=== PATIENT | female | born 1940 | race Caucasian/White ===

== ENCOUNTER 2020-03-08 14:41 | Inpatient (IN) ==
--- OUTSIDE RECORDS SUMMARY | 2020-03-08 14:45 | External Medical Summary | Continuity of Care Document ---
:1940 Author Name Jayden MYanely Address Unavailable Unavailable , Care Team Providers Name Role Phone Unavailable Unavailable Unavailable Jeanette BARRAGAN Unavailable Unavailable Problems Pelvic fracture (808.8) (S32.9XXA) Allergies and Adverse Reactions Allergy history not documented Medications Senna-Docusate Sodium 8.6-50 MG Oral Tablet; TAKE 1 TA BLET DAILY NEEDED. , M.DMonique Start: 28-May-2014 Refills: 0 Polyethylene Glycol 3350 17 GM/SCOOP Oral Powder , M.D. Start: 28-May-2014 Refills: 0 Percocet 5-325 MG Oral Tablet; TAKE 1 TABLET Every 4 hours P RN for pain , Kathrine Start: 28-May-2014 Refills: 0 Docusate Sodium 100 MG Oral Tablet , M.D. Start : 28-May-2014 Refills: 0 Aspirin 325 MG Oral Tablet , M.D. Start: 2014 Refills: 0 Procedures History of Tubal Ligation Status: Comple hua History of Cholecystectomy Status: Compl eted Immunizations Immunizations not documented Plan of Treatment Planned Observations Planned Goals not documented Results No Known Results Results not documented
--- NOTE | 2020-03-08 15:19 | Emergency Department Note ---
History of Present Illness General Chief complaint: Fall Time Seen by Provider: 03/08/20 15:01 Source: patient Mode of arrival: EMS Limitations: no limitations History of Present Illness Maximum Pain Intensity: 5 This patient is an 79-year-old female who presents to emergency department for evaluation of a right hip injury. Patient reports that she was walking in her house without her cane and lost her balance and fell. She landed onto her right hip. She denies striking her head and denies any other injuries. She states that she was not lightheaded or dizzy prior to the fall. Patient was able to slide herself over to the phone to call for help. Patient has a history of hypertension, denies other medical problems and does not take anticoagulants. She has had a previous left hip fracture which was repaired by Dr. Brady with [facility]. Denies any numbness or weakness. She has not been able to walk on the hip since the injury. Patient rates her pain a 5/10 and states pain is manageable as long as she does not move. She was given fentanyl en route with improvement of her pain. Home Medications Home Medications Medication Instructions Recorded Confirmed Type cholecalciferol (vitamin D3) 1,000 unit PO QAM 01/21/18 03/08/20 History [Vitamin D3] Turmeric/Curcumin 1 cap PO QAM 03/08/20 03/08/20 History amlodipine 10 mg PO QAM 03/08/20 03/08/20 History docusate sodium [Colace] 100 mg PO BID PRN 03/08/20 03/08/20 History omeprazole 20 mg PO DAILY PRN 03/08/20 03/08/20 History Allergies Allergy/AdvReac Type Severity Reaction Status Date / Time No Known Allergies Allergy Verified 03/08/20 19:10 Past Med/Surg History Medical History Hypertension Mild aortic valve regurgitation Mild mitral regurgitation Moderate tricuspid regurgitation Surgical History History of total left hip replacement S/P cholecystectomy S/P tubal ligation Family History Mother Cancer Social History Smoking Status: Never smoker Hx Alcohol Use: No Hx Substance Use: No Preferred Language: Swedish Communication Ability: Effective Sales Designer Required: No Beliefs That Will Affect Care: None marital status: Unknown Current Living Situation: Family Current Living Situation Comment: with daughter/familoy check ups Other Information That Helps Us Care for You: No Feels Safe at Home: Yes Safety Concerns: Feels Safe At This Time Assistive Devices: Walker Review of Systems A total of 10 systems reviewed and were otherwise negative Physical Exam Vital Signs Vital Signs - 24 hr 03/08/20 14:45 03/08/20 14:50 03/08/20 14:55 Temperature 36.6 C Temperature Source Oral Pulse Rate 84 80 71 Pulse Rate from SpO2 Sensor 81 75 Pulse Rhythm Regular Pulse Strength Normal Respiratory Rate 14 18 19 Respiratory Effort / Characteristics Non-Labored Spontaneous Respiratory Depth Normal Respiratory Pattern Regular Blood Pressure 138/76 138/76 Blood Pressure Mean 96 99 Blood Pressure Position Lying Pulse Oximetry 96 100 100 Oxygen Delivery Method Room Air Sepsis Recent Fever Within 48 Hours No Sepsis New/Unexplained Change in Mental Status N/A Sepsis Action Taken by Nursing No Action Required 03/08/20 15:00 03/08/20 15:30 03/08/20 16:00 Temperature Temperature Source Pulse Rate 76 80 75 Pulse Rate from SpO2 Sensor 75 81 76 Pulse Rhythm Pulse Strength Respiratory Rate 17 16 16 Respiratory Effort / Characteristics Respiratory Depth Respiratory Pattern Blood Pressure 132/90 129/66 133/73 Blood Pressure Mean 109 96 84 Blood Pressure Position Pulse Oximetry 98 99 100 Oxygen Delivery Method Sepsis Recent Fever Within 48 Hours Sepsis New/Unexplained Change in Mental Status Sepsis Action Taken by Nursing 03/08/20 16:30 03/08/20 17:00 03/08/20 17:30 Temperature Temperature Source Pulse Rate 75 85 78 Pulse Rate from SpO2 Sensor 83 85 80 Pulse Rhythm Pulse Strength Respiratory Rate 17 17 19 Respiratory Effort / Characteristics Respiratory Depth Respiratory Pattern Blood Pressure 133/82 119/74 125/72 Blood Pressure Mean 111 83 90 Blood Pressure Position Pulse Oximetry 97 99 98 Oxygen Delivery Method Sepsis Recent Fever Within 48 Hours Sepsis New/Unexplained Change in Mental Status Sepsis Action Taken by Nursing 03/08/20 18:00 03/08/20 19:00 Temperature Temperature Source Pulse Rate 76 71 Pulse Rate from SpO2 Sensor 78 71 Pulse Rhythm Pulse Strength Respiratory Rate 21 18 Respiratory Effort / Characteristics Respiratory Depth Respiratory Pattern Blood Pressure 116/72 128/68 Blood Pressure Mean 100 77 Blood Pressure Position Pulse Oximetry 97 98 Oxygen Delivery Method Sepsis Recent Fever Within 48 Hours Sepsis New/Unexplained Change in Mental Status Sepsis Action Taken by Nursing VITALS: Vitals are noted on the nurse's note and reviewed by myself. GENERAL: This is an 79-year-old female, in no acute distress, well-developed well-nourished. SKIN: The skin was without rashes. No lacerations or abrasions. HEAD: Normocephalic atraumatic. EARS: External auditory canals clear, tympanic membranes pearly dietz without erythema or effusion bilaterally. No hemotympanum. EYES: Pupils equal round and reactive to light and accommodation. Extraocular movements intact. MOUTH: Mucous membranes moist. NECK: Supple without nuchal rigidity. Cervical spine is nontender. HEART: Regular rate and rhythm without murmurs gallops or rubs. LUNGS: Clear to auscultation bilaterally without wheezes, rales or rhonchi. ABDOMEN: Positive bowel sounds x 4. Soft, nontender to palpation. MUSCULOSKELETAL: Patient has the right leg slightly flexed at the knee. There is tenderness palpation of the lateral right hip. Distal pulses intact. No tenderness of the knee or distal lower extremity. NEURO: Patient was alert and oriented to person place and time. Distal sensation intact. Course Consultations Consultation #1: Dr. Stafford - orthopedics Consultation #2: SMITH Lundberg - [facility] hospitalist Administered Medications Acetaminophen (Acetaminophen 325 Mg Tab) 650 mg PO Q6H [facility] Stop: 04/07/20 21:59 Last Admin: 03/09/20 21:19 Dose: 650 mg Documented by: [id number] Admin: 03/09/20 15:52 Dose: 650 mg Documented by: [id number] Admin: 03/09/20 11:16 Dose: 650 mg Documented by: [id number] Admin: 03/09/20 04:05 Dose: 650 mg Documented by: [id number] Admin: 03/08/20 21:52 Dose: 650 mg Documented by: [id number] Amlodipine Besylate (Amlodipine Besylate 5 Mg Tab) 10 mg PO QAM [facility] Stop: 04/08/20 08:59 Last Admin: 03/09/20 11:14 Dose: Not Given Documented by: [id number] Aspirin (Aspirin 81 Mg Ectab) 81 mg PO BID [facility] Stop: 04/08/20 20:59 Last Admin: 03/09/20 20:19 Dose: 81 mg Documented by: [id number] Hydromorphone HCl (Hydromorphone Inj 0.5 Mg/0.5 Ml Syr) 0.25 - 0.5 mg IV Q6H PRN PRN Reason: Moderate/Severe Pain Stop: 03/22/20 21:41 Last Admin: 03/09/20 01:32 Dose: 0.5 mg Documented by: [id number] Cefazolin Sodium (Ancef 2000mg) 2,000 mg in 15 mls @ 3.75 mls/min IV PREOP MAGGIE; Protocol Stop: 03/10/20 05:59 Last Admin: 03/09/20 07:46 Dose: 3.75 mls/min Documented by: [id number] Ceftriaxone Sodium 1,000 mg/ (Dextrose) 50 mls @ 100 mls/hr IV Q24H MAGGIE; Protocol Stop: 03/12/20 21:29 Last Admin: 03/09/20 20:19 Dose: 100 mls/hr Documented by: [id number] Sodium Chloride (Nss 1000ml) 1,000 mls @ 75 mls/hr IV .[id number] MAGGIE Stop: 04/08/20 06:29 Last Admin: 03/09/20 20:17 Dose: 75 mls/hr Documented by: [id number] Infusion: 03/09/20 20:17 Dose: 75 mls/hr Documented by: [id number] Admin: 03/09/20 07:03 Dose: 75 mls/hr Documented by: [id number] Oxycodone HCl (Oxycodone Hcl Ir 5 Mg Tab (Immediate Release)) 5 mg PO Q4H PRN PRN Reason: MODERATE Pain (Scale 4,5,6) Stop: 03/22/20 21:41 Last Admin: 03/09/20 15:52 Dose: 5 mg Documented by: [id number] Senna/Docusate Sodium (Docusate Sodium/Senna 50/8.6mg Tab) 2 tab PO HS MAGGIE Stop: 04/07/20 21:59 Last Admin: 03/09/20 20:19 Dose: 2 tab Documented by: [id number] Admin: 03/08/20 21:52 Dose: 2 tab Documented by: [id number] Vitamin D (Cholecalciferol 1,000 Units 25 Mcg Tab) 1,000 units PO QAM MAGGIE Stop: 04/08/20 08:59 Last Admin: 03/09/20 11:16 Dose: 1,000 units Documented by: [id number] Discontinued Medications Bupivacaine HCl (Bupivacaine 0.5 % 5 Mg/1 Ml Mpf 30ml Vial) Confirm Administered Dose 30 ml .ROUTE .STK-MED ONE Stop: 03/09/20 07:07 Last Admin: 03/09/20 08:39 Dose: 30 ml Documented by: [id number] Epinephrine HCl (Epinephrine Inj 1 Mg/Ml Amp) Confirm Administered Dose 1 mg .ROUTE .STK-MED ONE Stop: 03/09/20 07:07 Last Admin: 03/09/20 08:40 Dose: 0.15 mg Documented by: [id number] Fentanyl Citrate (Fentanyl Citrate 100 Mcg/2 Ml Vial) 50 mcg IV NOW STA Stop: 03/08/20 17:26 Last Admin: 03/08/20 18:34 Dose: 50 mcg Documented by: [id number] Ceftriaxone Sodium (Rocephin) 1,000 mg in 50 mls @ 100 mls/hr IV NOW STA Stop: 03/08/20 20:47 Last Infusion: 03/08/20 21:20 Dose: 0 mls/hr Documented by: [id number] Admin: 03/08/20 20:50 Dose: 100 mls/hr Documented by: [id number] Oxycodone HCl (Oxycodone Hcl Ir 5 Mg Tab (Immediate Release)) 5 mg PO NOW STA Stop: 03/08/20 20:17 Last Admin: 03/08/20 20:50 Dose: 5 mg Documented by: [id number] Medical Decision Making Differential Diagnosis Differential diagnosis includes femur fracture, pelvic fracture, hematoma, intra-abdominal injury, dislocation, among others. Home Medications Current Medication List: was personally reviewed by me Laboratory Data Attestation: I reviewed the patient's lab results. Result diagrams: 03/08/20 16:18 03/08/20 16:18 Lab Results 03/08/20 03/08/20 03/08/20 Range/Units 16:17 16:18 16:18 WBC 12.70 H (4.8-10.8) K/uL RBC 3.92 L (4.2-5.4) M/uL Hgb 11.7 L (12.0-16.0) g/dL Hct 35.8 L (37-47) % MCV 91.3 (80-100) fL MCH 29.8 (25-34) pg MCHC 32.7 (32-36) g/dL RDW Std Deviation 41.4 (36.4-46.3) fL RDW Coeff of Dana 12.4 (11.5-14.5) % Plt Count 189 (130-400) K/uL MPV 10.6 H (7.4-10.4) fL Immature Gran % (Auto) 0.2 % Neut % (Auto) 88.3 % Lymph % (Auto) 4.9 % [place] % (Auto) 6.3 % Eos % (Auto) 0.1 % Baso % (Auto) 0.2 % Neut # (Auto) 11.22 H (1.4-6.5) K/uL Lymph # (Auto) 0.62 L (1.2-3.4) K/uL [place] # (Auto) 0.80 H (0.11-0.59) K/uL Eos # (Auto) 0.01 (0-0.5) K/uL Baso # (Auto) 0.02 (0-0.2) K/uL Immature Gran # (Auto) 0.03 H (0.00-0.02) K/uL PT 11.0 (9.0-12.0) Seconds INR 1.0 (0.9-1.1) APTT 25.4 (21.0-31.0) Seconds PTT Ratio 0.9 Sodium (136-145) mmol/L Potassium (3.5-5.1) mmol/L Chloride (98-107) mmol/L Carbon Dioxide (21-32) mmol/L Anion Gap (3-11) BUN (7-18) mg/dl Creatinine (0.6-1.2) mg/dl Est Cr Clr Drug Dosing ml/min Est GFR ( Amer) Est GFR (Non-Af Amer) BUN/Creatinine Ratio (10-20) Glucose (70-99) mg/dl Calcium (8.5-10.1) mg/dl 25-OH Vitamin D Total (30-100) ng/ml Urine Color Urine Appearance (Clear) Urine pH (4.5-7.5) Ur Specific [place] (1.000-1.030) Urine Protein (Negative) Urine Glucose (UA) (Negative) Urine Ketones (Negative) Urine Blood (Negative) Urine Nitrite (Negative) Urine Bilirubin (Negative) Urine Urobilinogen (Negative) Ur Leukocyte Esterase (Negative) Urine WBC (Auto) (0-5) /hpf Urine RBC (Auto) (0-4) /hpf U Hyaline Cast (Auto) (0-5) /lpf U Epithel Cells (Auto) (0-5) /lpf Urine Bacteria (Auto) (Negative) Blood Type O Negative Antibody Screen NEGATIVE 03/08/20 03/08/20 03/08/20 Range/Units 16:18 16:21 18:50 WBC (4.8-10.8) K/uL RBC (4.2-5.4) M/uL Hgb (12.0-16.0) g/dL Hct (37-47) % MCV (80-100) fL MCH (25-34) pg MCHC (32-36) g/dL RDW Std Deviation (36.4-46.3) fL RDW Coeff of Dana (11.5-14.5) % Plt Count (130-400) K/uL MPV (7.4-10.4) fL Immature Gran % (Auto) % Neut % (Auto) % Lymph % (Auto) % [place] % (Auto) % Eos % (Auto) % Baso % (Auto) % Neut # (Auto) (1.4-6.5) K/uL Lymph # (Auto) (1.2-3.4) K/uL [place] # (Auto) (0.11-0.59) K/uL Eos # (Auto) (0-0.5) K/uL Baso # (Auto) (0-0.2) K/uL Immature Gran # (Auto) (0.00-0.02) K/uL PT (9.0-12.0) Seconds INR (0.9-1.1) APTT (21.0-31.0) Seconds PTT Ratio Sodium 140 (136-145) mmol/L Potassium 3.6 (3.5-5.1) mmol/L Chloride 107 (98-107) mmol/L Carbon Dioxide 29 (21-32) mmol/L Anion Gap 4.0 (3-11) BUN 17 (7-18) mg/dl Creatinine 0.56 L (0.6-1.2) mg/dl Est Cr Clr Drug Dosing 65.2 ml/min Est GFR ( Amer) 101.3 Est GFR (Non-Af Amer) 87.4 BUN/Creatinine Ratio 29.6 H (10-20) Glucose 101 H (70-99) mg/dl Calcium 9.1 (8.5-10.1) mg/dl 25-OH Vitamin D Total 43.3 (30-100) ng/ml Urine Color Yellow Urine Appearance Cloudy A (Clear) Urine pH 6.0 (4.5-7.5) Ur Specific [place] 1.016 (1.000-1.030) Urine Protein Negative (Negative) Urine Glucose (UA) Negative (Negative) Urine Ketones 2+ H (Negative) Urine Blood Trace H (Negative) Urine Nitrite Positive A (Negative) Urine Bilirubin Negative (Negative) Urine Urobilinogen Negative (Negative) Ur Leukocyte Esterase Trace H (Negative) Urine WBC (Auto) 5-10 H (0-5) /hpf Urine RBC (Auto) 0-4 (0-4) /hpf U Hyaline Cast (Auto) 1-5 (0-5) /lpf U Epithel Cells (Auto) 20-30 H (0-5) /lpf Urine Bacteria (Auto) 4+ H (Negative) Blood Type Antibody Screen Imaging Data Attestation: I personally reviewed and interpreted this imaging study as follows: Radiologist's Impression: XR pelvis 1-2V routine, XR femur RT 2V routine FINDINGS: PELVIS: Left hip total joint arthroplasty. Demineralized appearance of the bones. Acute intertrochanteric fracture of the right femur is noted with mild impaction and mild apex lateral angulation. No dislocation. Mild lateral soft tissue swelling. 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 FEMUR: Mid and distal femur appear intact. Tricompartmental osteoarthritis of the knee. Arterial calcifications. IMPRESSION: Acute intertrochanteric fracture of the right femur with mild impaction and slight angulation. XR chest 1V portable HISTORY: 79 years-old Female hip fx acute right hip pain status post fall COMPARISON: Chest radiograph 05/09/2014 TECHNIQUE: Portable AP view of the chest FINDINGS: Cardiomediastinal and hilar silhouettes are within normal limits. Calcified plaque of the thoracic aorta. No pneumothorax, pleural effusion, airspace consolidation or overt pulmonary edema. Mild linear subsegmental scarring/atelectasis of the left lung base, unchanged.] Discectomy. Degenerative changes of the shoulders and spine. Lumbar levoscoliosis. IMPRESSION: No acute process. MDM Narrative This patient is an 79-year-old female who presents to the emergency department for evaluation of a fall and injury to her right hip. Patient did not strike her head or sustain any other injuries. X-rays did show an intertrochanteric fracture. Labs with a mild leukocytosis and mild anemia. Patient does appear to have a urinary tract infection and was given a dose of IV ceftriaxone for this. Patient initially hesitant about admission and requested transfer. I did have a lengthy discussion with the patient about her reasoning for this. She states that her was here and she was unhappy with the care that he had received. When I explained to the patient that she would have different providers taking care of her, she was agreeable to admission and surgery here. Orthopedics was consulted [facility] the [facility] for further care. Impression & Plan Intertrochanteric fracture of right femur, Acute UTI Discharge Plan Visit Data Chief Complaint: Fall ED Provider: Luis Kingston ED Midlevel Provider: Sandra Zamora Discharge Problem: Intertrochanteric fracture of right femur, Acute UTI Patient Disposition: Admitted As Inpatient Discharge Instructions Interventions: ED Discharge Assessment Last Done: 03/08/20 20:42 Discharge Problem: Intertrochanteric fracture of right femur Qualifiers: Encounter type: initial encounter Fracture type: closed Fracture alignment: displaced Qualified Code(s): S72.141A - Displaced intertrochanteric fracture of right femur, initial encounter for closed fracture
[2020-03-08 16:36] LABS: Basophils # (auto) 0.02 K/uL (0-0.2); Basophils % (auto) 0.2 %; Eosinophils # (auto) 0.01 K/uL (0-0.5); Eosinophils % (auto) 0.1 %; Hematocrit (blood only) 35.8 % (37-47); Hemoglobin 11.7 g/dL (12.0-16.0); Immature Granulocytes # (auto) 0.03 K/uL (0.00-0.02); Immature Granulocytes % (auto) 0.2 %; Lymphocytes # (auto) 0.62 K/uL (1.2-3.4); Lymphocytes % (auto) 4.9 %; Mean Corpuscular Hemoglobin 29.8 pg (25-34); Mean Corpuscular Hgb Conc 32.7 g/dL (32-36); Mean Corpuscular Volume 91.3 fL (80-100); Mean Platelet Volume 10.6 fL (7.4-10.4); Monocytes % (auto) 6.3 %; Neutrophils # (auto) 11.22 K/uL (1.4-6.5); Neutrophils % (auto) 88.3 %; Platelet Count 189 K/uL (130-400); RDW Coefficient of Variation 12.4 % (11.5-14.5); RDW Standard Deviation 41.4 fL (36.4-46.3); Red Blood Count 3.92 M/uL (4.2-5.4)
--- NOTE | 2020-03-08 16:39 | XRay Report ---
XR pelvis 1-2V routine, XR femur RT 2V routine HISTORY: 79 years-old Female right hip injury . Acute right hip pain status post injury COMPARISON: Pelvis radiograph 05/10/2014 TECHNIQUE: AP view of the pelvis with 2 views of the right femur FINDINGS: PELVIS: Left hip total joint arthroplasty. Demineralized appearance of the bones. Acute intertrochanteric fra cture of the right femur is noted with mild impaction and mild apex lateral angulation. No dislocatio n. Mild lateral soft tissue swelling. 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 FEMUR: Mid and distal femur appear intact. Tricompartmental osteoarthritis of the knee. Arterial calcificati ons. IMPRESSION: Acute intertrochanteric fracture of the right femur with mild impaction and slight angula tion. ACT 112: Negative or not required by law. The above report was generated using voice recognition software. It may contain grammatical, syntax o r spelling errors. Electronically signed by: Deyvi Vega M.D. 03/08/2020 4:38 PM
--- NOTE | 2020-03-08 16:41 | XRay Report ---
XR chest 1V portable HISTORY: 79 years-old Female hip fx acute right hip pain status post fall COMPARISON: Chest radiograph 05/09/2014 TECHNIQUE: Portable AP view of the chest FINDINGS: Cardiomediastinal and hilar silhouettes are within normal limits. Calcified plaque of the thoracic ao rta. No pneumothorax, pleural effusion, airspace consolidation or overt pulmonary edema. Mild linear subsegmental scarring/atelectasis of the left lung base, unchanged.] Discectomy. Degenerative changes of the shoulders and spine. Lumbar levoscoliosis. IMPRESSION: No acute process. ACT 112: Negative or not required by law. The above report was generated using voice recognition software. It may contain grammatical, syntax o r spelling errors. Electronically signed by: Deyvi Vega M.D. 03/08/2020 4:39 PM
[2020-03-08 16:46] LABS: Partial Thromboplastin Ratio 0.9; Partial Thromboplastin Time 25.4 Seconds (21.0-31.0)
[2020-03-08 16:53] LABS: BUN Creatinine Ratio 29.6 (10-20); Calcium 9.1 mg/dl (8.5-10.1); Creatinine Clr Calc Pharmacy 65.2 ml/min; Est GFR (African American) 101.3; Est GFR (Non-African American) 87.4; Potassium 3.6 mmol/L (3.5-5.1)
[2020-03-08] MEDS ORDERED: fentaNYL citrate 100 MCG/2 ML VIAL IV STA (17:25)
--- NOTE | 2020-03-08 18:40 | Emergency Department Note ---
ED Visit Note The patient was seen and examined with pedro. I agree with the history, physical and findings. Please see the note for disposition and details. .
[2020-03-08 19:38] LABS: Appearance Urine Cloudy (Clear); Bacteria Urine Automated 4+ (Negative); Bilirubin Urine Negative (Negative); Blood Urine Trace (Negative); Color Urine Yellow; Epithelial Cell Urine Auto 20-30 /lpf (0-5); Glucose Urine UA Negative (Negative); Ketones Urine 2+ (Negative); Leukocyte Esterase Urine Trace (Negative); Nitrite Urine Positive (Negative); Protein Urine Negative (Negative); RBC Urine Automated 0-4 /hpf (0-4); Specific Gravity Urine 1.016 (1.000-1.030); Urobilinogen Urine Negative (Negative)
[2020-03-08] MEDS ORDERED: oxyCODONE HCL IR 5 MG TAB (IMMEDIATE RELEASE) PO STA (20:16)
[2020-03-08] MEDS ORDERED: cefTRIAXone SODIUM 1,000 MG/50 ML BAG IV STA (20:18)
--- NOTE | 2020-03-08 20:50 | History & Physical Report ---
Date of Service March 08, 2020 Assessment & Plan (1) Intertrochanteric fracture of right femur: -Admit to [facility] -Patient presenting from home after suffering a mechanical fall -In the ED, femur x-ray shows acute intertrochanteric fracture of the right femur with mild impaction and slight angulation -Orthopedics consult, case discussed with Dr. Stafford -planning on surgery tomorrow -No cardiopulmonary symptoms, CXR negative for acute findings, EKG no acute ST changes; no further testing is needed, patient acceptable risk for surgery -Preoperative COVID-19 testing -NPO after midnight -Pain control with bowel regimen (2) Acute UTI: -UA suggests UTI, may have contributed to fall today -Does not appear septic -S/p IV ceftriaxone in the ED, will continue with (3) Hypertension: -BP controlled, continue amlodipine (4) DVT prophylaxis: -SCDs due to planned procedure tomorrow History of Present Illness Chief Complaint: Fall, right hip pain Primary Care Provider: Linda Gonzlaez DO 79-year-old female with PMH HTN, mild valvular heart disease, and other problems listed below who presents to the ED for evaluation of right hip pain after suffering a fall. Patient reports that she was walking across some thick carpeting without her cane when she lost her balance and fell onto her right hip. Patient reports she had immediate pain in her right hip and was unable to get up. Patient then presented to the ED for further evaluation. Patient reports she otherwise has been feeling well recently. No chest pain or shortness of breath. Denies lightheadedness, dizziness, diaphoresis, syncopal events. No other recent illnesses, fevers, chills. Denies abdominal pain, nausea, vomiting, diarrhea. No urinary symptoms. In the ED, femur x-ray shows acute intertrochanteric fracture of the right femur with mild impaction and slight angulation. UA also suggest UTI. Labs are unremarkable. Patient is hemodynamically stable. Patient received IV fentanyl and IV ceftriaxone. Allergies Allergy/AdvReac Type Severity Reaction Status Date / Time No Known Allergies Allergy Verified 03/08/20 19:10 Home Medications Home Medications Medication Instructions Recorded Confirmed Type cholecalciferol (vitamin D3) 1,000 unit PO QAM 01/21/18 03/08/20 History [Vitamin D3] Turmeric/Curcumin 1 cap PO QAM 03/08/20 03/08/20 History amlodipine 10 mg PO QAM 03/08/20 03/08/20 History docusate sodium [Colace] 100 mg PO BID PRN 03/08/20 03/08/20 History omeprazole 20 mg PO DAILY PRN 03/08/20 03/08/20 History Past Med/Surg History Medical History Hypertension Mild aortic valve regurgitation Mild mitral regurgitation Moderate tricuspid regurgitation Surgical History History of total left hip replacement S/P cholecystectomy S/P tubal ligation Family History Mother Cancer Social History Smoking Status: Never smoker Hx Alcohol Use: No Hx Substance Use: No Preferred Language: Mosotho Communication Ability: Effective Customs Consultant Required: No Beliefs That Will Affect Care: None marital status: Current Living Situation: Family Current Living Situation Comment: with daughter/familoy check ups Other Information That Helps Us Care for You: No Feels Safe at Home: Yes Safety Concerns: Feels Safe At This Time Assistive Devices: Cane and Glasses Review of Systems Review of Systems: ROS per HPI, all other systems reviewed and negative Physical Exam Constitutional: + thin; no acute distress Vitals as above Eyes: PERRL, conjunctivae normal, anicteric sclerae ENMT: external ear and nose normal, oropharynx normal Respiratory: normal respiratory effort, lungs clear to auscultation Cardiovascular: Rate/Rhythm: regular rate and regular rhythm Vessels: normal peripheral pulses Extremities: + edema (Trace edema BLE) Gastrointestinal (Abdomen): normal bowel sounds, soft, nontender, no hepatosplenomegaly Musculoskeletal: no cyanosis or clubbing, extremities motor strength 5/5 (Strength testing in RLE limited secondary to fracture) Right hip pain with minimal movement Skin: no rashes, warm and dry Neurologic: PERRL, EOMI, accommodation nl, no face palsy, no dysarthria Psychiatric: A+Ox3, euthymic affect Results & Data Results & Data ([facility]) Vital Signs (Past 12 Hours) Vital Signs Temp Pulse Resp BP Pulse Ox 03/08/20 20:00 76 20 128/73 97 03/08/20 19:30 72 18 143/86 H 96 03/08/20 19:00 71 18 128/68 98 03/08/20 18:00 76 21 116/72 97 03/08/20 17:30 78 19 125/72 98 03/08/20 17:00 85 17 119/74 99 03/08/20 16:30 75 17 133/82 97 03/08/20 16:00 75 16 133/73 100 03/08/20 15:30 80 16 129/66 99 03/08/20 15:00 76 17 132/90 98 03/08/20 14:55 71 19 100 03/08/20 14:50 80 18 138/76 100 03/08/20 14:45 36.6 C 84 14 138/76 96 Laboratory Results Short CBC 03/08/20 Range/Units 16:18 WBC 12.70 H (4.8-10.8) K/uL Hgb 11.7 L (12.0-16.0) g/dL Hct 35.8 L (37-47) % Plt Count 189 (130-400) K/uL BMP 03/08/20 16:18 Sodium 140 Potassium 3.6 Chloride 107 Carbon Dioxide 29 BUN 17 Creatinine 0.56 L Glucose 101 H Calcium 9.1 Urine 03/08/20 Range/Units 18:50 Urine Color Yellow Urine Appearance Cloudy A (Clear) Urine pH 6.0 (4.5-7.5) Ur Specific Arthur 1.016 (1.000-1.030) Urine Protein Negative (Negative) Urine Glucose (UA) Negative (Negative) Diagnostic Findings RIGHT FEMUR XR IMPRESSION: Acute intertrochanteric fracture of the right femur with mild impaction and slight angulation. CXR IMPRESSION: No acute process. Code Status & VTE Plan Code Status Patient is a full code as per my discussion with her. VTE Prophylaxis Plan VTE Prophylaxis will be ordered: Yes Supervising Physician Co-Signing Physician Notes Care coordinated with SMITH Lundberg. Agree with above note. Patient seen and examined. Please refer to her notes for full details. Vital signs reviewed. Physical exam: General exam: Alert and oriented. Not in acute distress. CVS: S1 and S2 heard, regular rate and rhythm, no murmurs. RS: Clear to auscultation, no wheezing or crackles. ABD: Soft, bowel sounds present, nontender, no distention. GREEN MARKETER: Nonfocal. EXT: RLE shortened and externally rotated Labs: Reviewed. Assessment and plan: 79 F who lives with her daughter had mechanical fall and found to have right femur fracture. Right femur fracture. Patient at acceptable risk to proceed with surgery ortho consulted pain control gentle fluids- monitor for any volume overload. close monitor UTI rocephin follow cx HTN on amlodipine will monitor Other diagnosis and plan of care as per SMITH Lundberg.. Abdulkadir kramer MD.
[2020-03-08] MEDS ORDERED: MAGNESIUM HYDROXIDE SUSP 30 ML UDC PO PRN (21:42)
[2020-03-08] MEDS ORDERED: NALOXONE HCL 0.4 MG/1 ML VIAL/CARP IV PRN (21:42)
[2020-03-08] MEDS ORDERED: bisacodyL 10 MG SUPP PR PRN (21:42)
[2020-03-08] MEDS ORDERED: HYDROmorphone INJ 0.5 MG/0.5 ML SYR IV PRN (21:42)
[2020-03-08] MEDS: ACETAMINOPHEN 325 MG TAB PO SCH (21:52)
[2020-03-08] MEDS: DOCUSATE SODIUM/SENNA 50/8.6MG TAB PO SCH (21:52)
[2020-03-09] MEDS: ACETAMINOPHEN 325 MG TAB PO SCH ×4 (04:05→21:19)
[2020-03-09] MEDS ORDERED: ceFAZolin 2000MG 2,000 MG/15 ML SYR IV SCH (06:00)
--- NOTE | 2020-03-09 06:59 | History & Physical Bridge Note ---
Date of Service March 09, 2020 History & Physical Bridge Note I have examined the patient, reviewed the History & Physical and in the interval since the performance of the History & Physical I have noted the following changes of clinical significance: no changes noted
[2020-03-09] MEDS: SODIUM CHLORIDE 0.9% 1000ML 1,000 ML IV SCH ×2 (07:03→20:17)
--- NOTE | 2020-03-09 07:04 | Orthopedic Consultation ---
Date of Consultation March 09, 2020 Assessment & Plan (1) Intertrochanteric fracture of right femur: To OR this AM for IM nail right hip fracture. Present on Admission?: Yes (2) Acute UTI: (3) Hypertension: History of Present Illness Reason for Consultation: Right Hip Fracture Attending Physician: Pat Case MD History of Present Illness Mechanical fall. Right hip pain. No history of right hip pain. No other injuries or complaints. Allergies Allergy/AdvReac Type Severity Reaction Status Date / Time No Known Allergies Allergy Verified 03/08/20 19:10 Home Medications Home Medications Medication Instructions Recorded Confirmed Type cholecalciferol (vitamin D3) 1,000 unit PO QAM 01/21/18 03/08/20 History [Vitamin D3] Turmeric/Curcumin 1 cap PO QAM 03/08/20 03/08/20 History amlodipine 10 mg PO QAM 03/08/20 03/08/20 History docusate sodium [Colace] 100 mg PO BID PRN 03/08/20 03/08/20 History omeprazole 20 mg PO DAILY PRN 03/08/20 03/08/20 History Patient History Medical History Hypertension Mild aortic valve regurgitation Mild mitral regurgitation Moderate tricuspid regurgitation Surgical History History of total left hip replacement S/P cholecystectomy S/P tubal ligation Family History Mother Cancer Social History Smoking Status: Never smoker Hx Alcohol Use: No Hx Substance Use: No Preferred Language: Citizen Of [place] Communication Ability: Effective Paintings Conservator Required: No Beliefs That Will Affect Care: None marital status: Current Living Situation: Family Current Living Situation Comment: with daughter/familoy check ups Other Information That Helps Us Care for You: No Feels Safe at Home: Yes Safety Concerns: Feels Safe At This Time Assistive Devices: Cane and Glasses Review of Systems Review of Systems: All systems reviewed & are unremarkable except as noted in HPI & below Physical Exam Physical Exam: Right lower extremity. Right leg slightly shortened and ER. Pain with any attempted ROM. N/V intact. Constitutional: WD/WN, vitals as above Eyes: PERRL, conjunctivae normal, anicteric sclerae ENMT: external ear and nose normal, oropharynx normal Neck: trachea midline, no thyromegaly Respiratory: normal respiratory effort, lungs clear to auscultation Cardiovascular: RRR, no murmur, no edema Gastrointestinal (Abdomen): normal bowel sounds, soft, nontender, no hepatosplenomegaly Musculoskeletal: no cyanosis or clubbing, extremities motor strength 5/5 Neurologic: patellar DTR's 2+ bilat, sensation intact Results & Data ([facility]) Vital Signs (Past 12 Hours) Vital Signs Temp Pulse Pulse Resp BP BP BP 03/09/20 01:47 70 103/57 L 03/08/20 23:09 36.7 C 87 14 93/54 L 03/08/20 21:53 36.9 C 72 18 124/75 03/08/20 20:00 76 20 128/73 03/08/20 19:30 72 18 143/86 H 03/08/20 19:00 71 18 128/68 Pulse Ox 03/09/20 01:47 96 03/08/20 23:09 98 03/08/20 21:53 99 03/08/20 20:00 97 03/08/20 19:30 96 03/08/20 19:00 98 PG Care Time/CCT Total # of Minutes Spent Total Time Spent with Patient: Total time spent is greater than 50% in coordination of care (as documented) at patient's floor/unit and/or counseling patient: Coding Level of Care Code 78999 Initial Inpt Care Lvl 3 Diagnoses Intertrochanteric fracture of right femur S72.141A Acute UTI N39.0 Hypertension I10
[2020-03-09] MEDS ORDERED: BUPIVACAINE 0.5 % 5 MG/1 ML MPF 30ML VIAL ONE (07:06)
[2020-03-09] MEDS ORDERED: EPINEPHrine INJ 1 MG/ML AMP ONE (07:06)
[2020-03-09] MEDS ORDERED: fentaNYL citrate 100 MCG/2 ML VIAL ONE (07:14)
[2020-03-09] MEDS ORDERED: PROPOFOL IV EMULSION 10 MG/ML 20 ML VIAL IV ONE ×3 (07:15→07:16)
--- NOTE | 2020-03-09 07:33 | Anesthesiology Consultation ---
Date of Service March 09, 2020 Assessment & Plan Chart Review Chart Review: Acceptable Risk for Surgery Consults Requested none History Surgery Operation Date: 03/09/20 07:30 Proposed Procedures p Right Long Troch Nail Tibia(Right) - August Stafford MD Height/Weight Height: 5 ft 3 in Weight: 51.891 kg Allergies Allergy/AdvReac Type Severity Reaction Status Date / Time No Known Allergies Allergy Verified 03/08/20 19:10 Medications Home Medications Medication Instructions Recorded Confirmed Last Taken cholecalciferol (vitamin D3) 1,000 unit PO QAM 01/21/18 03/08/20 03/08/20 [Vitamin D3] Turmeric/Curcumin 1 cap PO QAM 03/08/20 03/08/20 03/08/20 amlodipine 10 mg PO QAM 03/08/20 03/08/20 03/08/20 docusate sodium [Colace] 100 mg PO BID PRN 03/08/20 03/08/20 Unknown omeprazole 20 mg PO DAILY PRN 03/08/20 03/08/20 Unknown Active Medications Generic Name Dose Route Start Last Admin Trade Name Freq PRN Reason Stop Dose Admin Acetaminophen 650 mg 03/08/20 22:00 03/09/20 04:05 Acetaminophen 325 Mg Tab PO 04/07/20 21:59 650 mg Q6H MAGGIE Administration Hydromorphone HCl 0.25 - 0.5 mg 03/08/20 21:42 03/09/20 01:32 Hydromorphone Inj 0.5 Mg/0.5 Ml Syr IV 03/22/20 21:41 0.5 mg Q6H PRN Administration Moderate/Severe Pain Sodium Chloride 1,000 mls @ 75 mls/hr 03/09/20 06:30 03/09/20 07:03 Nss 1000ml IV 04/08/20 06:29 75 mls/hr .[id number] MAGGIE Administration Senna/Docusate Sodium 2 tab 03/08/20 22:00 03/08/20 21:52 Docusate Sodium/Senna 50/8.6mg Tab PO 04/07/20 21:59 2 tab HS MAGGIE Administration NPO Date Last Intake of Fluids: 03/08/20 Time Last Intake of Fluids: 23:59 Date Last Intake of Solids: 03/08/20 Time Last Intake of Solids: 23:59 Past Medical History Medical History Hypertension Mild aortic valve regurgitation Mild mitral regurgitation Moderate tricuspid regurgitation Past Family History Family History Mother Cancer Past Surgical History Surgical History History of total left hip replacement S/P cholecystectomy S/P tubal ligation Social History Smoking Status: Never smoker Hx Alcohol Use: No Hx Substance Use: No Physical Exam Vital Signs Last Vital Signs Temp 36.9 C 03/09/20 07:12 Pulse 87 03/09/20 07:12 Resp 16 03/09/20 07:12 BP 132/72 03/09/20 07:12 Pulse Ox 99 03/09/20 07:12 Testing Laboratory Results 03/08/20 16:18 03/08/20 16:18 PT 11.0 Seconds (9.0-12.0) 03/08/20 16:18 INR 1.0 (0.9-1.1) 03/08/20 16:18 APTT 25.4 Seconds (21.0-31.0) 03/08/20 16:18 Urine Color Yellow 03/08/20 18:50 Urine Appearance Cloudy (Clear) A 03/08/20 18:50 Urine pH 6.0 (4.5-7.5) 03/08/20 18:50 Ur Specific Taylor 1.016 (1.000-1.030) 03/08/20 18:50 Urine Protein Negative (Negative) 03/08/20 18:50 Urine Glucose (UA) Negative (Negative) 03/08/20 18:50 Urine Ketones 2+ (Negative) H 03/08/20 18:50 Urine Nitrite Positive (Negative) A 03/08/20 18:50 Ur Leukocyte Esterase Trace (Negative) H 03/08/20 18:50 Urine WBC (Auto) 5-10 /hpf (0-5) H 03/08/20 18:50 Urine RBC (Auto) 0-4 /hpf (0-4) 03/08/20 18:50 U Hyaline Cast (Auto) 1-5 /lpf (0-5) 03/08/20 18:50 U Epithel Cells (Auto) 20-30 /lpf (0-5) H 03/08/20 18:50 Urine Bacteria (Auto) 4+ (Negative) H 03/08/20 18:50 Blood Type O Negative 03/08/20 16:17 Antibody Screen NEGATIVE 03/08/20 16:17
[2020-03-09] MEDS ORDERED: fentaNYL citrate 100 MCG/2 ML VIAL IV PRN (07:38)
[2020-03-09] MEDS ORDERED: HYDROmorphone INJ 1 MG/ML SYRINGE IV PRN (07:38)
[2020-03-09] MEDS ORDERED: ATROPINE SULFATE 0.1 MG/ML 10ML SYR IV PRN (07:38)
[2020-03-09] MEDS ORDERED: ePHEDrine sulfate 50 MG/ML AMP IV PRN (07:38)
[2020-03-09] MEDS ORDERED: MIDAZOLAM HCL 1 MG/ML 2ML VIAL ONE (07:39)
[2020-03-09] MEDS ORDERED: KETAMINE 50 MG/5 ML SYRINGE ONE (07:39)
--- NOTE | 2020-03-09 08:29 | Hospitalist Progress Note ---
Date of Service March 09, 2020 Assessment & Plan (1) Intertrochanteric fracture of right femur: -Patient presenting from home after suffering a mechanical fall -In the ED, femur x-ray shows acute intertrochanteric fracture of the right femur with mild impaction and slight angulation -Orthopedics consult, Dr. Stafford -planning on surgery today -No cardiopulmonary symptoms, CXR negative for acute findings, EKG no acute ST changes; no further testing is needed, patient acceptable risk for surgery -Preoperative COVID-19 testing Resume Post Op Care per Surgery Protocol Incentive Spirometry 10x per Hour Resume Relative Home Meds Where Appropriate PT/OT with appropriate fall precautions Transition from IV to PO Pain control DVT Prophylaxis Per Surgery Protocol Monitor Daily Labs (2) Acute UTI: -UA suggests UTI, may have contributed to fall today -Does not appear septic -Ceftriaxone (3) Hypertension: -BP controlled, continue amlodipine (4) DVT prophylaxis: -SCDs due to planned procedure tomorrow Labs checked ROS-No Headache, No Visual Changes, No Nausea, No Vomiting, No Fever, No Chills, No Neck Pain or Stiffness, No Chest Pain, No Palpitations, No SOB, No [place], No Cough, No Sputum, No Wheezing, No Abdominal Pain, No Diarrhea, No Hematemesis, No Hemoptysis, No Unexpected Weight Loss, No Flank pain, No Melena, No H ematochezia, No Frequency, No Urgency, No Burning, No Hematuria, No Rashes, No Diaphoresis. Appetite is Normal, pain controlled Physical Exam Gen-AAO x 3, NAD, Afebrile Head-NCAT, EOMI, PERRLA, Anicteric Sclera, No Posterior Pharyngeal Erythema Neck-Supple, No JVD, No Thyromegaly, No Masses, No LAD, No Bruits Lungs-Clear to Auscultation Bilaterally, No Rales, No Rhonchi, No Wheezing, No Crepitus Chest-No S4, +S1, +S2, No S3, No Murmurs, No Rubs, No Gallops, No Ectopy Abdomen-Soft, Bowel Sounds Present, Non Tender, Non Distended, No Hepatomegaly, No Splenomegaly, No Palpable Masses, No Rebound, No Rigidity, No Guarding Musculoskeletal-Full Range of Motion Bilaterally, No CVAT Extremities-No Cyanosis, No Clubbing, No Edema Nuero-Cranial Nerves II-XII grossly intact, Motor WNL, DTRs WNL, Strength WNL, Non Focal Psych-Normal Mood Admission and Anticipated Discharge Date Admission Date: March 08, 2020 Results & Data Results & Data ([facility]) Vital Signs (Past 12 Hours) Vital Signs Temp Pulse Resp BP BP Pulse Ox 03/09/20 07:12 36.9 C 87 16 132/72 99 03/09/20 01:47 70 103/57 L 96 03/08/20 23:09 36.7 C 87 14 93/54 L 98 03/08/20 21:53 36.9 C 72 18 124/75 99
--- NOTE | 2020-03-09 09:07 | Operative Report ---
Post Operative Report Pre & Post Diagnosis Operation Date: 03/09/20 07:30 Pre-Op Diagnosis: Right intertrochanteric/subtrochanteric hip Fracture Post-Op Diagnosis: Right intertrochanteric/subtrochanteric hip Fracture I identified the patient and participated in the time-out.: Yes Procedure Operation Date: 03/09/20 07:30 Actual Procedures p Right Long Troch Nail (Right) - August Stafford MD Surgeon August Stafford MD Acid Remover None Estimated Blood Loss 50 Findings Consistent with Post-Op Diagnosis Fluids 1200 cc Specimens None Anesthesia Type Spinal MAC Complications none Disposition Disposition: Recovery Room Indications Patient is an 79-year-old female who sustained a mechanical fall yesterday. She is a previously cane ambulator. She denied any pre-existing hip problems or pain. She developed acute onset of pain in her hip. She is brought to emergency room where x-rays revealed a right intertrochanteric/subtrochanteric hip fracture. She was met admitted by the medicine service, medically optimized and indicated for surgical treatment. I did consider doing some type of arthroplasty considering her underlying hip arthritis, but since she was not having any symptoms and the nature of this fracture going into the subtrochanteric region I thought the trochanteric nail/IM nailing was in the most appropriate treatment for this patient. Description of Procedure Operative implants consist of: 1. Synthes right 340 mm x 10 mm long trochanteric nail 2. 85 mm helical blade. 3. 5 mm x 44 mm distal interlocking screw. The patient was taken to the operating identified and placed on the operating table supine position but all contractors were properly padded. A spinal anesthetic was implemented by anesthesia team. IV antibiotics were provided. The patient has been on antibiotics for a urinary tract infection as well. Patient was then placed on the fracture table in the supine position. The right leg was placed in boot traction and the left leg was placed in a well leg oquendo. I applied some longitudinal traction to the right leg and internally rotated the foot so the kneecap pointed to the ceiling. X-ray was brought in. The fracture was nearly anatomically reduced. The right hip was then scrubbed with a Hibiclens and then prepped with ChloraPrep and then draped in the usual sterile fashion. A curvilinear incision was made just proximal tip of the greater trochanter. Sharp dissection was got through subcutaneous tissue down the level gluteal fascia. Gluteal fascia was incised longitudinally in line with skin incision. A guidewire was placed just lateral to the tip of the greater trochanter and in line with the IM canal both the AP and lateral planes. Was advanced down the IM canal. This is overreamed with a 17 mm reamer. This guidewire was then exchanged for the ball-tipped guidewire. The ball-tipped guidewire was placed down the IM canal. I measured for nail length and a 340 mm nail was selected. I then reamed beginning with a size 9 reamer. We started getting chatter at 11. Therefore reamed up to 11 and half and elected to place a 10 mm nail. A Synthes right 340 mm x 10 mm long trochanteric nail was then placed over the guidewire. The guidewire was removed. The nail was tapped in position. A lateral aiming arm was placed and advanced to the lateral aspect the femur through a stab incision. A guidewire was placed in the central aspect of the femoral head and neck in both AP and lateral planes. An 85 mm helical blade was selected. The cortical drill was used to breach the cortex and the triple reamer was set at 85 and used to ream over the guidewire. An 85 mm helical blade was placed. The proximal setscrew was tightened. The proximal aiming arm was removed and some final x-rays were obtained. Attention drawn toward distal interlocking. We removed some of the traction from the femur. The perfect cheesh-na technique was used to do distal interlocking. Perfect cheesh-na was obtained of the distal dynamic hole. A stab incision was made. The drill was used in a 5 x 44 mm distal interlock screw was placed. Some final x-rays were obtained. Attention drawn toward closing. For all wounds were irrigated with extensive amounts of normal saline. I did inject locally with 30 cc of half percent Marcaine with epinephrine. The gluteal fascia then closed with #1 Vicryl suture running fashion for the subcutaneous tissues of all wounds were then closed with 2 Dexon suture in a buried interrupted fashion skin was closed with skin levy. The leg was then cleaned and dried a sterile dressing composed of Xeroform, 4 x 4's, ABD pad, and foam tape were applied. The patient was then taken off the fracture table and transported to the recovery room in stable condition. Patient tolerated procedure well and there were no complications. I attest to the content of the Intraoperative Record and any orders documented therein. Any exceptions are noted below.
--- NOTE | 2020-03-09 09:17 | Fluoroscopy Report ---
FL hip RT 2-3V CLINICAL HISTORY: RT TROCH NAIL COMPARISON STUDY: None. FLUOROSCOPY TIME: 81 seconds.. FINDINGS: 4 fluoroscopic spot images of the right femur demonstrate an intramedullary jayesh with an int erlocking femoral neck pin. This traverses the femoral fracture. Alignment is near-anatomic. IMPRESSION: Fluoroscopy provided for right femoral intramedullary jayesh placement. ACT 112: Negative or not required by law. Electronically signed by: Eloy Soria M.D. 03/09/2020 9:16 AM
--- NOTE | 2020-03-09 09:50 | Anesthesiology Progress Note ---
Date of Service March 09, 2020 Anesthesia Post Procedure Vital Signs Vital Signs: Temp Pulse Pulse Pulse Resp BP BP 03/09/20 09:40 36 C L 66 14 98/58 L 03/09/20 09:30 36 C L 68 16 94/54 L 03/09/20 09:20 71 17 89/52 L 03/09/20 09:10 71 15 80/42 L 03/09/20 09:03 36 C L 77 12 87/47 L 03/09/20 08:30 65 17 94/45 L 03/09/20 07:12 36.9 C 87 16 132/72 03/09/20 01:47 70 03/08/20 23:09 36.7 C 87 14 03/08/20 21:53 36.9 C 72 18 124/75 03/08/20 20:00 76 20 128/73 03/08/20 19:30 72 18 143/86 H 03/08/20 19:00 71 18 128/68 03/08/20 18:00 76 21 116/72 03/08/20 17:30 78 19 125/72 03/08/20 17:00 85 17 119/74 03/08/20 16:30 75 17 133/82 03/08/20 16:00 75 16 133/73 03/08/20 15:30 80 16 129/66 03/08/20 15:00 76 17 132/90 03/08/20 14:55 71 19 03/08/20 14:50 80 18 138/76 03/08/20 14:45 36.6 C 84 14 138/76 BP Pulse Ox 03/09/20 09:40 98 03/09/20 09:30 98 03/09/20 09:20 97 03/09/20 09:10 100 03/09/20 09:03 98 03/09/20 08:30 98 03/09/20 07:12 99 03/09/20 01:47 103/57 L 96 03/08/20 23:09 93/54 L 98 03/08/20 21:53 99 03/08/20 20:00 97 03/08/20 19:30 96 03/08/20 19:00 98 03/08/20 18:00 97 03/08/20 17:30 98 03/08/20 17:00 99 03/08/20 16:30 97 03/08/20 16:00 100 03/08/20 15:30 99 03/08/20 15:00 98 03/08/20 14:55 100 03/08/20 14:50 100 03/08/20 14:45 96 Pain Intensity Right Hip: Pain Intensity: 3 Transfer of Care Handoff Completed per policy Notes Mental Status: alert / awake / arousable and participated in evaluation Patient Amnestic to Procedure: Yes Nausea / Vomiting: adequately controlled Pain: adequately controlled Airway Patency, RR, SpO2: stable & adequate BP & HR: stable & adequate Hydration State: stable & adequate Neuraxial Anesthesia: was administered and sensory block is resolving Anesthetic Complications: no major complications apparent
[2020-03-09] MEDS ORDERED: NALOXONE HCL 0.4 MG/1 ML VIAL/CARP IV PRN (10:02)
[2020-03-09] MEDS: amLODIPine BESYLATE 5 MG TAB PO SCH (11:14)
[2020-03-09] MEDS: CHOLECALCIFEROL 1,000 UNITS 25 MCG TAB PO SCH (11:16)
[2020-03-09] MEDS: oxyCODONE HCL IR 5 MG TAB (IMMEDIATE RELEASE) PO PRN ×2 (15:52→22:24)
[2020-03-09] MEDS: cefTRIAXone SODIUM 1,000 MG in DEXTROSE 5% 50 ML IV SCH (20:19)
[2020-03-09] MEDS: ASPIRIN 81 MG ECTAB PO SCH (20:19)
[2020-03-09] MEDS: DOCUSATE SODIUM/SENNA 50/8.6MG TAB PO SCH (20:19)
[2020-03-10] MEDS: ACETAMINOPHEN 325 MG TAB PO SCH ×4 (04:17→21:50)
[2020-03-10 06:11] LABS: Basophils # (auto) 0.01 K/uL (0-0.2); Basophils % (auto) 0.2 %; Eosinophils # (auto) 0.08 K/uL (0-0.5); Eosinophils % (auto) 1.4 %; Hematocrit (blood only) 26.9 % (37-47); Hemoglobin 8.8 g/dL (12.0-16.0); Immature Granulocytes # (auto) 0.01 K/uL (0.00-0.02); Immature Granulocytes % (auto) 0.2 %; Lymphocytes % (auto) 15.4 %; Mean Corpuscular Hgb Conc 32.7 g/dL (32-36); Mean Corpuscular Volume 91.8 fL (80-100); Mean Platelet Volume 10.1 fL (7.4-10.4); Monocytes % (auto) 10.3 %; Neutrophils # (auto) 4.25 K/uL (1.4-6.5); Neutrophils % (auto) 72.5 %; Platelet Count 125 K/uL (130-400); RDW Coefficient of Variation 12.6 % (11.5-14.5); RDW Standard Deviation 42.5 fL (36.4-46.3); Red Blood Count 2.93 M/uL (4.2-5.4); White Blood Count 5.85 K/uL (4.8-10.8)
--- NOTE | 2020-03-10 06:21 | Electrocardiogram Report ---
Test Reason : Blood Pressure : / mmHG Vent. Rate : 074 BPM Atrial Rate : 074 BPM P-R Int : 190 ms QRS Dur : 090 ms QT Int : 414 ms P-R-T Axes : 054 -33 070 degrees QTc Int : 459 ms Sinus rhythm with marked sinus arrhythmia Left axis deviation Anteroseptal infarct , age undetermined Abnormal ECG When compared with ECG of 11-MAY-2014 09:43, Premature ventricular complexes are no longer Present Anteroseptal infarct is now Present Confirmed by Joe Schuster ([id number]) on 03/10/2020 6:20:34 AM Referred By: REFERRED SELF Confirmed By:Joe Schuster
[2020-03-10 06:34] LABS: BUN Creatinine Ratio 30.3 (10-20); Creatinine Clr Calc Pharmacy 75.3 ml/min; Est GFR (African American) 106.6
[2020-03-10 06:38] LABS: Potassium 3.7 mmol/L (3.5-5.1)
--- NOTE | 2020-03-10 07:32 | Hospitalist Progress Note ---
Date of Service March 10, 2020 Assessment & Plan (1) Intertrochanteric fracture of right femur: -Patient presenting from home after suffering a mechanical fall -In the ED, femur x-ray shows acute intertrochanteric fracture of the right femur with mild impaction and slight angulation -Orthopedics, Dr. Stafford took her surgery 03/09 and performed a Right Long Troch Nail -No cardiopulmonary symptoms, CXR negative for acute findings, EKG no acute ST changes -Preoperative COVID-19 testing done Resume Post Op Care per Surgery Protocol Incentive Spirometry 10x per Hour Resume Relative Home Meds Where Appropriate PT/OT with appropriate fall precautions Transition from IV to PO Pain control DVT Prophylaxis Per Surgery Protocol Monitor Daily Labs (2) Acute UTI: -UA suggests UTI, may have contributed to fall today -Does not appear septic -Continue Ceftriaxone (3) Hypertension: -BP controlled, continue amlodipine (4) DVT prophylaxis: -SCDs due to planned procedure tomorrow Labs checked ROS-No Headache, No Visual Changes, No Nausea, No Vomiting, No Fever, No Chills, No Neck Pain or Stiffness, No Chest Pain, No Palpitations, No SOB, No DE LA TORRE, No Cough, No Sputum, No Wheezing, No Abdominal Pain, No Diarrhea, No Hematemesis, No Hemoptysis, No Unexpected Weight Loss, No Flank pain, No Melena, No Hematochezia, No Frequency, No Urgency, No Burning, No Hematuria, No Rashes, No Diaphoresis. Appetite is Normal, pain controlled Physical Exam Gen-AAO x 2, NAD, Afebrile Head-NCAT, EOMI, PERRLA, Anicteric Sclera, No Posterior Pharyngeal Erythema Neck-Supple, No JVD, No Thyromegaly, No Masses, No LAD, No Bruits Lungs-Clear to Auscultation Bilaterally, No Rales, No Rhonchi, No Wheezing, No Crepitus Chest-No S4, +S1, +S2, No S3, No Murmurs, No Rubs, No Gallops, No Ectopy Abdomen-Soft, Bowel Sounds Present, Non Tender, Non Distended, No Hepatomegaly, No Splenomegaly, No Palpable Masses, No Rebound, No Rigidity, No Guarding Musculoskeletal-Full Range of Motion Bilaterally, No CVAT Extremities-No Cyanosis, No Clubbing, No Edema Nuero-Cranial Nerves II-XII grossly intact, Motor WNL, DTRs WNL, Strength WNL, Non Focal Psych-Normal Mood Admission and Anticipated Discharge Date Admission Date: March 08, 2020 Results & Data Results & Data ([facility]) Vital Signs (Past 12 Hours) Vital Signs Temp Pulse Resp BP BP Pulse Ox 03/10/20 07:16 36.8 C 73 18 127/70 96 03/10/20 04:20 36.4 C L 88 18 114/63 99 03/09/20 23:20 37.2 C 84 16 115/66 96 (1) Intertrochanteric fracture of right femur Encounter type: initial encounter Fracture alignment: displaced Fracture type: closed Qualified Code(s): S72.141A - Displaced intertrochanteric fracture of right femur, initial encounter for closed fracture
--- NOTE | 2020-03-10 08:54 | Progress Notes ---
DATE: 03/10/2020 SUBJECTIVE: An 79-year-old white female postop day 1 from IM nailing of a right intertrochanteric fracture. She is doing reasonably well. Some moderate amount of pain. No new complaints. Seems a little bit groggy this morning. OBJECTIVE: VITAL SIGNS: Temperature 36.8. Vital signs stable. GENERAL: Shows a thin, cachectic elderly female. She is sitting up in bed and eating her breakfast. She looks reasonably comfortable. EXTREMITIES: Examination of the right hip reveals the leg to be well aligned. She can dorsiflex and plantarflex her foot appropriately. She is neurologically intact. Dressing is clean, dry and intact. Thigh is soft and supple. LABORATORY DATA: Hemoglobin 8.8. Hematocrit 26.9. Electrolytes are stable. ASSESSMENT: An 79-year-old female postop day 1 from IM nailing of a right intertrochanteric fracture, doing okay. PLAN: 1. DVT prophylaxis including thigh-high TEDs, SCDs, and we would recommend a baby aspirin twice a day. 2. PT/OT. Weight bear as tolerated. 3. Medical management as per the medicine service. 4. Disposition: She is orthopedically okay for discharge any time. She is really refusing to go to a care facility. We will have to get administrator social welfare involved and see what her social situation is. I need to see her back somewhere between 2 and 3 weeks postop. She is weightbearing as tolerated. Any orthopedic questions can be directed to me at [phone].
[2020-03-10] MEDS: CHOLECALCIFEROL 1,000 UNITS 25 MCG TAB PO SCH (09:18)
[2020-03-10] MEDS: amLODIPine BESYLATE 5 MG TAB PO SCH (09:18)
[2020-03-10] MEDS: ASPIRIN 81 MG ECTAB PO SCH ×2 (09:18→21:50)
[2020-03-10] MEDS: oxyCODONE HCL IR 5 MG TAB (IMMEDIATE RELEASE) PO PRN (09:19)
[2020-03-10] MEDS: DOCUSATE SODIUM/SENNA 50/8.6MG TAB PO SCH (21:50)
[2020-03-10] MEDS: cefTRIAXone SODIUM 1,000 MG in DEXTROSE 5% 50 ML IV SCH (21:50)
[2020-03-11] MEDS: oxyCODONE HCL IR 5 MG TAB (IMMEDIATE RELEASE) PO PRN ×3 (02:52→23:44)
[2020-03-11] MEDS: ACETAMINOPHEN 325 MG TAB PO SCH ×4 (03:42→22:34)
[2020-03-11 07:04] LABS: Hematocrit (blood only) 24.9 % (37-47); Hemoglobin 8.2 g/dL (12.0-16.0); Mean Corpuscular Hemoglobin 30.3 pg (25-34); Mean Corpuscular Hgb Conc 32.9 g/dL (32-36); Mean Corpuscular Volume 91.9 fL (80-100); Mean Platelet Volume 9.9 fL (7.4-10.4); Platelet Count 135 K/uL (130-400); RDW Coefficient of Variation 12.7 % (11.5-14.5); RDW Standard Deviation 42.6 fL (36.4-46.3); Red Blood Count 2.71 M/uL (4.2-5.4)
[2020-03-11 07:40] LABS: Calcium 8.5 mg/dl (8.5-10.1); Creatinine Clr Calc Pharmacy 64.5 ml/min; Est GFR (African American) 101.3; Est GFR (Non-African American) 87.4; Potassium 3.9 mmol/L (3.5-5.1)
--- NOTE | 2020-03-11 07:50 | Hospitalist Progress Note ---
Date of Service March 11, 2020 Assessment & Plan (1) Intertrochanteric fracture of right femur: -Patient presenting from home after suffering a mechanical fall -In the ED, femur x-ray shows acute intertrochanteric fracture of the right femur with mild impaction and slight angulation -Orthopedics, Dr. Stafford took her surgery 03/09 and performed a Right Long Troch Nail -No cardiopulmonary symptoms, CXR negative for acute findings, EKG no acute ST changes -Preoperative COVID-19 testing done Resume Post Op Care per Surgery Protocol Incentive Spirometry 10x per Hour Resume Relative Home Meds Where Appropriate PT/OT with appropriate fall precautions Transition from IV to PO Pain control DVT Prophylaxis Per Surgery Protocol Monitor Daily Labs SNF vs Home c [facility] HPT (2) Acute UTI: -UA suggests UTI, may have contributed to fall -Does not appear septic -Continue Ceftriaxone (3) Hypertension: -BP controlled, continue amlodipine (4) DVT prophylaxis: -SCDs SC Heparin Labs checked ROS-No Headache, No Visual Changes, No Nausea, No Vomiting, No Fever, No Chills, No Neck Pain or Stiffness, No Chest Pain, No Palpitations, No SOB, No [place] T[place], No Cough, No Sputum, No Wheezing, No Abdominal Pain, No Diarrhea, No Hematemesis, No Hemoptysis, No Unexpected Weight Loss, No Flank pain, No Melena, No Hematochezia, No Frequency, No Urgency, No Burning, No Hematuria, No Rashes, No Diaphoresis. Appetite is Normal, pain controlled Physical Exam Gen-AAO x 2, NAD, Afebrile Head-NCAT, EOMI, PERRLA, Anicteric Sclera, No Posterior Pharyngeal Erythema Neck-Supple, No JVD, No Thyromegaly, No Masses, No LAD, No Bruits Lungs-Clear to Auscultation Bilaterally, No Rales, No Rhonchi, No Wheezing, No Crepitus Chest-No S4, +S1, +S2, No S3, No Murmurs, No Rubs, No Gallops, No Ectopy Abdomen-Soft, Bowel Sounds Present, Non Tender, Non Distended, No Hepatomegaly, No Splenomegaly, No Palpable Masses, No Rebound, No Rigidity, No Guarding Musculoskeletal-Full Range of Motion Bilaterally, No CVAT Extremities-No Cyanosis, No Clubbing, No Edema Nuero-Cranial Nerves II-XII grossly intact, Motor WNL, DTRs WNL, Strength WNL, Non Focal Psych-Normal Mood Admission and Anticipated Discharge Date Admission Date: March 08, 2020 Results & Data Results & Data ([facility]) Vital Signs (Past 12 Hours) Vital Signs Temp Pulse Resp BP Pulse Ox 03/11/20 07:38 36.6 C 95 H 18 128/64 99 03/10/20 23:14 36.7 C 93 H 18 115/69 97 (1) Intertrochanteric fracture of right femur Encounter type: initial encounter Fracture alignment: displaced Fracture t ype: closed Qualified Code(s): S72.141A - Displaced intertrochanteric fracture of right femur, initial encounter for closed fracture
--- NOTE | 2020-03-11 07:59 | Progress Notes ---
DATE: 03/11/2020 SUBJECTIVE: An 79-year-old female postop day 2 from IM nailing of right intertrochanteric fracture. She is doing okay. Still having right hip and thigh pain, which is not unusual. No other complaints. No chest pain or shortness of breath. OBJECTIVE: VITAL SIGNS: Temperature 36.7. Vital signs stable. GENERAL: Shows a pleasant, cachectic elderly female. She is lying in bed, looks reasonably comfortable this morning. EXTREMITIES: Examination of the right leg reveals the leg to be well aligned. Some mild thigh swelling. Leg lengths are equal. She can dorsiflex and plantarflex her foot appropriately. Dressings are clean, dry and intact. She is neurologically intact. LABORATORY DATA: Hemoglobin 8.2. Hematocrit 24.9. Electrolytes are pending. ASSESSMENT: An 79-year-old female postoperative day 2 from intramedullary nailing of right intertrochanteric fracture. She is orthopedically stable. PLAN: 1. DVT prophylaxis including thigh-high TEDs, SCDs, and we would recommend a baby aspirin twice a day. 2. PT/OT. She can weightbear as tolerated in the right lower extremity. 3. Anemia. Currently, asymptomatic. Continue iron supplementation. 4. Medical management as per the medicine service. 5. Disposition: She is orthopedically okay for discharge any time. I need to see her back in 2-3 weeks from her surgery date. Any orthopedic questions can be directed to me at [phone]. She is currently really refusing to go to a rehab or senior care facility.
[2020-03-11] MEDS ORDERED: HEPARIN SOD 5,000 UNIT/0.5 ML VIAL SQ SCH (09:00)
[2020-03-11] MEDS: ASPIRIN 81 MG ECTAB PO SCH ×2 (10:32→20:25)
[2020-03-11] MEDS: CHOLECALCIFEROL 1,000 UNITS 25 MCG TAB PO SCH (10:32)
[2020-03-11] MEDS: amLODIPine BESYLATE 5 MG TAB PO SCH (10:32)
[2020-03-11] MEDS: DOCUSATE SODIUM/SENNA 50/8.6MG TAB PO SCH (20:25)
[2020-03-11] MEDS: cefTRIAXone SODIUM 1,000 MG in DEXTROSE 5% 50 ML IV SCH (20:28)
[2020-03-12] MEDS: ACETAMINOPHEN 325 MG TAB PO SCH ×4 (03:38→21:55)
[2020-03-12] MEDS: oxyCODONE HCL IR 5 MG TAB (IMMEDIATE RELEASE) PO PRN ×4 (03:38→21:55)
[2020-03-12 06:36] LABS: Hematocrit (blood only) 24.9 % (37-47); Mean Corpuscular Hemoglobin 29.9 pg (25-34); Mean Corpuscular Hgb Conc 32.1 g/dL (32-36); Mean Corpuscular Volume 92.9 fL (80-100); Mean Platelet Volume 9.8 fL (7.4-10.4); Platelet Count 175 K/uL (130-400); RDW Coefficient of Variation 12.9 % (11.5-14.5); RDW Standard Deviation 43.9 fL (36.4-46.3); Red Blood Count 2.68 M/uL (4.2-5.4); White Blood Count 5.78 K/uL (4.8-10.8)
[2020-03-12 07:03] LABS: BUN Creatinine Ratio 30.2 (10-20); Calcium 8.9 mg/dl (8.5-10.1); Creatinine Clr Calc Pharmacy 84.1 ml/min; Est GFR (African American) 110.6; Est GFR (Non-African American) 95.4; Potassium 3.7 mmol/L (3.5-5.1)
[2020-03-12] MEDS: CHOLECALCIFEROL 1,000 UNITS 25 MCG TAB PO SCH (08:20)
[2020-03-12] MEDS: amLODIPine BESYLATE 5 MG TAB PO SCH (08:20)
[2020-03-12] MEDS: ASPIRIN 81 MG ECTAB PO SCH ×2 (08:20→20:15)
--- NOTE | 2020-03-12 09:54 | Progress Notes ---
DATE: 03/12/2020 SUBJECTIVE: An 79-year-old white female postop day 3 from IM nailing of a right intertrochanteric fracture. She is doing okay. Pain seems to be getting a little bit better. No new complaints. Denies any chest pain or shortness of breath. OBJECTIVE: VITAL SIGNS: Temperature 37.1. Vital signs stable. GENERAL: Shows a frail elderly female. She is sitting up in bed eating her breakfast. Looks pretty comfortable this morning. EXTREMITIES: Examination of the right leg reveals the leg to be well aligned. Dressing is clean, dry and intact. She can dorsiflex and plantarflex her foot appropriately. Thigh is soft and supple. She is neurologically intact. LABORATORY DATA: Hemoglobin 8.0. Hematocrit 24.9. Electrolytes are stable. ASSESSMENT: An 79-year-old white female postop day 3 from IM nailing of a right intertrochanteric fracture. Orthopedically, she is doing reasonably well. The pain seems to be improving. PLAN: 1. DVT prophylaxis including thigh-high TEDs, SCDs, and we would recommend a baby aspirin twice a day for 6 weeks. 2. PT/OT. She can weightbear as tolerated in the right lower extremity. 3. Pain control, seems to be doing better with pain control. 4. Medical management as per the medicine service. 5. Disposition: She is orthopedically okay for discharge any time. I need to see her back in 2-3 weeks from surgery date. Any orthopedic questions can be directed to me at [phone].
--- NOTE | 2020-03-12 10:56 | Discharge Summary ---
Date of Service March 12, 2020 Admission HPI Per Admitting Provider 79-year-old female with PMH HTN, mild valvular heart disease, and other problems listed below who presents to the ED for evaluation of right hip pain after suffering a fall. Patient reports that she was walking across some thick carpeting without her cane when she lost her balance and fell onto her right hip. Patient reports she had immediate pain in her right hip and was unable to get up. Patient then presented to the ED for further evaluation. Patient reports she otherwise has been feeling well recently. No chest pain or shortness of breath. Denies lightheadedness, dizziness, diaphoresis, syncopal events. No other recent illnesses, fevers, chills. Denies abdominal pain, nausea, vomiting, diarrhea. No urinary symptoms. In the ED, femur x-ray shows acute intertrochanteric fracture of the right femur with mild impaction and slight angulation. UA also suggest UTI. Labs are unremarkable. Patient is hemodynamically stable. Patient received IV fentanyl and IV ceftriaxone. Admission Exam Per Admitting Provider Gen-AAO x 2, NAD, Afebrile Head-NCAT, EOMI, PERRLA, Anicteric Sclera, No Posterior Pharyngeal Erythema Neck-Supple, No JVD, No Thyromegaly, No Masses, No LAD, No Bruits Lungs-Clear to Auscultation Bilaterally, No Rales, No Rhonchi, No Wheezing, No Crepitus Chest-No S4, +S1, +S2, No S3, No Murmurs, No Rubs, No Gallops, No Ectopy Abdomen-Soft, Bowel Sounds Present, Non Tender, Non Distended, No Hepatomegaly, No Splenomegaly, No Palpable Masses, No Rebound, No Rigidity, No Guarding Musculoskeletal-Full Range of Motion Bilaterally, No CVAT Extremities-No Cyanosis, No Clubbing, No Edema Nuero-Cranial Nerves II-XII grossly intact, Motor WNL, DTRs WNL, Strength WNL, Non Focal Psych-Normal Mood Principal Diagnosis (1) Intertrochanteric fracture of right femur: (2) Acute UTI: (3) Hypertension: Discharge Data Allergies Allergy/AdvReac Type Severity Reaction Status Date / Time No Known Allergies Allergy Verified 03/08/20 19:10 Consultations 03/08/20 18:46 ED Decision to Admit Stat 11/13/20 21:42 Consult Anesthesiology Routine Consult Case Management - Discharge Planning Routine Consult Orthopedic Surgery Routine 03/09/20 10:02 Consult Case Management - Discharge Planning Routine 03/11/20 08:00 Consult Case Management - Discharge Planning Routine Procedures Performed Operation Date: 03/09/20 07:30 Actual Procedures p Right Long Troch Nail (Right) - August Stafford MD Ordered Studies 03/09/20 07:30 FL fluoroscopy <1hr Routine FL hip RT 2-3V Routine Hospital Course (1) Intertrochanteric fracture of right femur: -Patient presenting from home after suffering a mechanical fall -In the ED, femur x-ray shows acute intertrochanteric fracture of the right femur with mild impaction and slight angulation -Orthopedics, Dr. Stafford took her surgery 03/09 and performed a Right Long Troch Nail -No cardiopulmonary symptoms, CXR negative for acute findings, EKG no acute ST changes -Preoperative COVID-19 testing done Resume Post Op Care per Surgery Protocol Incentive Spirometry 10x per Hour Resume Relative Home Meds Where Appropriate PT/OT with appropriate fall precautions Transition from IV to PO Pain control DVT Prophylaxis Per Surgery Protocol Monitor Daily Labs SNF vs Home c [facility] HPT (2) Acute UTI: -UA suggests UTI, may have contributed to fall -Does not appear septic -Continue Ceftriaxone (3) Hypertension: -BP controlled, continue amlodipine (4) DVT prophylaxis: -SCDs SC Heparin Labs checked ROS-No Headache, No Visual Changes, No Nausea, No Vomiting, No Fever, No Chills, No Neck Pain or Stiffness, No Chest Pain, No Palpitations, No SOB, No DE [place] TORRE, No Cough, No Sputum, No Wheezing, No Abdominal Pain, No Diarrhea, No Hematemesis, No Hemoptysis, No Unexpected Weight Loss, No Flank pain, No Melena, No Hematochezia, No Frequency, No Urgency, No Burning, No Hematuria, No Rashes, No Diaphoresis. Appetite is Normal, pain controlled Physical Exam Gen-AAO x 2, NAD, Afebrile Head-NCAT, EOMI, PERRLA, Anicteric Sclera, No Posterior Pharyngeal Erythema Neck-Supple, No JVD, No Thyromegaly, No Masses, No LAD, No Bruits Lungs-Clear to Auscultation Bilaterally, No Rales, No Rhonchi, No Wheezing, No Crepitus Chest-No S4, +S1, +S2, No S3, No Murmurs, No Rubs, No Gallops, No Ectopy Abdomen-Soft, Bowel Sounds Present, Non Tender, Non Distended, No Hepatomegaly, No Splenomegaly, No Palpable Masses, No Rebound, No Rigidity, No Guarding Musculoskeletal-Full Range of Motion Bilaterally, No CVAT Extremities-No Cyanosis, No Clubbing, No Edema Nuero-Cranial Nerves II-XII grossly intact, Motor WNL, DTRs WNL, Strength WNL, Non Focal Psych-Normal Mood Total Time Total Time Spent Total Time Spent (In Minutes): 45 mins Discharge Plan Discharge Items Patient Disposition: Transfer Shelter Fac Reason For Visit: HIP FX Discharge Diagnosis: IM Nail right hip fracture (1) Intertrochanteric fracture of right femur: (2) Acute UTI: (3) Hypertension: Condition on Discharge: Good Health Concerns: Mobility Issues at home, Refusing ARF or SNF Activity: Per Instructions section Activity Comment: May weightbear as tolerated. Bathing: No limitations Exercise/Sports: None Driving/Machine Use: After Ortho eval Weightbearing: Full weightbearing Non-emergency contact: Primary Care Provider and Surgeon Call non-emergency contact if: you have any medication questions and your pain is worsening Follow-up/Referrals: August Stafford MD [Physician] - (Orthopedic follow-up 2-3 weeks from surgery date.) Linda Gonzalez DO [Primary Care Provider] - Diet: Regular Addtl Attending Provider Instructions: May fully weigthtbear as tolerated on right leg. Pending Studies at Discharge: No Stand-Alone Forms: My [facility] Skilled Items Patient informed of condition?: Yes DNR: No Discharge Level of Care: Skilled Communicable Disease: No Discharge Prognosis: Improving Lines: None Urinary Catheter: No Medications and DC Order Prescriptions: New sennosides-docusate sodium [Senokot-S] 8.6-50 mg Tablet 2 tab PO HS Qty: 60 RF: 0 aspirin 81 mg Tablet,Delayed Release (Dr/Ec) 81 mg PO BID Qty: 90 RF: 0 oxycodone 5 mg Tablet 5 mg PO Q4H PRN (Reason: pain) Qty: 30 RF: 0 cefuroxime axetil 250 mg tablet 250 mg PO BID 7 Days Qty: 14 RF: 0 cefuroxime axetil 250 mg tablet 250 mg PO BID 7 Days Qty: 14 RF: 0 acetaminophen [Tylenol Extra Strength] 500 mg tablet 500 mg PO Q4H Qty: 60 RF: 0 oxycodone 5 mg capsule 5 mg PO Q6H Qty: 30 RF: 0 aspirin [Aspirin Low Dose] 81 mg tablet,delayed release (DR/EC) 81 mg PO BID Qty: 90 RF: 0 sennosides-docusate sodium [Senna with Docusate Sodium] 8.6-50 mg tablet 1 tab-cap PO HS Qty: 60 RF: 0 oxycodone 5 mg tablet 5 mg PO Q6H PRN (Reason: pain) Qty: 30 RF: 0 Continued cholecalciferol (vitamin D3) [Vitamin D3] 1,000 unit Capsule 1,000 unit PO QAM RF: 0 amlodipine 10 mg tablet 10 mg PO QAM RF: 0 Turmeric/Curcumin 1 cap PO QAM RF: 0 docusate sodium [Colace] 100 mg Capsule 100 mg PO BID PRN (Reason: Constipation) RF: 0 omeprazole 20 mg Tablet,Delayed Release (Dr/Ec) 20 mg PO DAILY PRN (Reason: Dyspepsia) RF: 0 Discharge Orders: Discharge Order (Routine); Ordered 03/12/20 Ordered By: Skyler Haro Admission Data Admit Date/Time: 03/08/20 19:11 Attending Provider: Skyler Haro Admit Provider: Pat Case Primary Care Provider: Linda Gonzalez Other Providers: Pat Case ; Farheen Tracye ; August Stafford ; [facility] ; [facility] ; [facility]
[2020-03-12] MEDS: DOCUSATE SODIUM/SENNA 50/8.6MG TAB PO SCH (20:15)
[2020-03-12] MEDS: cefTRIAXone SODIUM 1,000 MG in DEXTROSE 5% 50 ML IV SCH (20:20)
[2020-03-13] MEDS: ACETAMINOPHEN 325 MG TAB PO SCH ×2 (04:22→10:43)
[2020-03-13] MEDS: oxyCODONE HCL IR 5 MG TAB (IMMEDIATE RELEASE) PO PRN ×2 (07:09→12:19)
[2020-03-13 08:10] LABS: Basophils # (auto) 0.01 K/uL (0-0.2); Basophils % (auto) 0.2 %; Eosinophils # (auto) 0.07 K/uL (0-0.5); Eosinophils % (auto) 1.1 %; Hematocrit (blood only) 24.6 % (37-47); Hemoglobin 8.1 g/dL (12.0-16.0); Immature Granulocytes # (auto) 0.01 K/uL (0.00-0.02); Immature Granulocytes % (auto) 0.2 %; Lymphocytes # (auto) 1.08 K/uL (1.2-3.4); Lymphocytes % (auto) 17.5 %; Mean Corpuscular Hemoglobin 30.5 pg (25-34); Mean Corpuscular Hgb Conc 32.9 g/dL (32-36); Mean Corpuscular Volume 92.5 fL (80-100); Mean Platelet Volume 9.1 fL (7.4-10.4); Monocytes # (auto) 0.51 K/uL (0.11-0.59); Monocytes % (auto) 8.3 %; Neutrophils % (auto) 72.7 %; Platelet Count 221 K/uL (130-400); RDW Coefficient of Variation 13.1 % (11.5-14.5); RDW Standard Deviation 44.1 fL (36.4-46.3); Red Blood Count 2.66 M/uL (4.2-5.4); White Blood Count 6.18 K/uL (4.8-10.8)
[2020-03-13] MEDS: ASPIRIN 81 MG ECTAB PO SCH (08:39)
[2020-03-13] MEDS: amLODIPine BESYLATE 5 MG TAB PO SCH (08:40)
[2020-03-13] MEDS: CHOLECALCIFEROL 1,000 UNITS 25 MCG TAB PO SCH (08:40)
--- NOTE | 2020-03-13 10:41 | Hospitalist Progress Note ---
Date of Service March 13, 2020 Assessment & Plan (1) Intertrochanteric fracture of right femur: -Patient presenting from home after suffering a mechanical fall -In the ED, femur x-ray shows acute intertrochanteric fracture of the right femur with mild impaction and slight angulation -Orthopedics, Dr. Stafford took her surgery 03/09 and performed a Right Long Troch Nail -No cardiopulmonary symptoms, CXR negative for acute findings, EKG no acute ST changes -Preoperative COVID-19 testing done Resume Post Op Care per Surgery Protocol Incentive Spirometry 10x per Hour Resume Relative Home Meds Where Appropriate PT/OT with appropriate fall precautions Transition from IV to PO Pain control DVT Prophylaxis Per Surgery Protocol - ASA81 mg BID (for 6 weeks) Monitor Daily Labs SNF / rehab, plan for dc to [facility] (2) Acute UTI: -UA suggests UTI, may have contributed to fall -Does not appear septic -Continue Ceftriaxone while inpt, switch to cefuroxime PO after DC to finish Abx course (3) Hypertension: -BP controlled, continue amlodipine (4) DVT prophylaxis: -SCDs SC Heparin, TEDs, ASA BID Labs reviewed Admission and Anticipated Discharge Date Admission Date: March 08, 2020 Subjective Pt is currently in room 361, in NAD. Alert and oriented, answering questions appropriately. complains of constipation. Per nursing staff pt had BM yesterday. Pt denies any shortness of breath, chest pain, abd. pain. says her hip is bothering her on and off. Review of Systems Review of Systems: All systems reviewed & are unremarkable except as noted in HPI & below Constitutional: no fever and no chills Respiratory: no cough and no dyspnea Cardiovascular: no chest pain and no palpitations Gastrointestinal: + constipation; no abdominal pain, no nausea and no vomiting Physical Exam Physical Exam: Gen- elderly female in NAD, answering questions appropriately Head- NCAT, EOMI, Anicteric Sclera, No Posterior Pharyngeal Erythema Neck- Supple, No JVD, No Thyromegaly, No Masses Lungs- Clear to Auscultation Bilaterally, No Rales, No Rhonchi, No Wheezing, No Crepitus Chest- RRR, No Murmurs Abdomen- Soft, Bowel Sounds Present, Non Tender, Non Distended, No Rigidity, No Guarding Musculoskeletal- Full Range of Motion Bilaterally, No CVAT Extremities- No Cyanosis, No Clubbing, No Edema, TEDs applied Neuro- alert and oriented and answering questions appropriately, no facial asymmetry, speech fluent, Motor WNL, DTRs WNL, Strength WNL, Non Focal Psych-Normal Mood Results & Data Results & Data ([facility]) Vital Signs (Past 12 Hours) Vital Signs Temp Pulse Resp BP Pulse Ox 03/13/20 08:37 36.7 C 76 129/71 97 03/12/20 23:00 36.9 C 88 16 127/69 97 (1) Intertrochanteric fracture of right femur Encounter type: initial encounter Fracture alignment: displaced Fracture type: closed Qualified Code(s): S72.141A - Displaced intertrochanteric fracture of right femur, initial encounter for closed fracture
--- NOTE | 2020-03-13 10:41 | Discharge Summary ---
Date of Service March 13, 2020 Admission HPI Per Admitting Provider 79-year-old female with PMH HTN, mild valvular heart disease, and other problems listed below who presents to the ED for evaluation of right hip pain after suffering a fall. Patient reports that she was walking across some thick carpeting without her cane when she lost her balance and fell onto her right hip. Patient reports she had immediate pain in her right hip and was unable to get up. Patient then presented to the ED for further evaluation. Patient reports she otherwise has been feeling well recently. No chest pain or shortness of breath. Denies lightheadedness, dizziness, diaphoresis, syncopal events. No other recent illnesses, fevers, chills. Denies abdominal pain, nausea, vomiting, diarrhea. No urinary symptoms. In the ED, femur x-ray shows acute intertrochanteric fracture of the right femur with mild impaction and slight angulation. UA also suggest UTI. Labs are unremarkable. Patient is hemodynamically stable. Patient received IV fentanyl and IV ceftriaxone. Admission Exam Per Admitting Provider Constitutional: + thin; no acute distress Vitals as above Eyes: PERRL, conjunctivae normal, anicteric sclerae ENMT: external ear and nose normal, oropharynx normal Respiratory: normal respiratory effort, lungs clear to auscultation Cardiovascular: Rate/Rhythm: regular rate and regular rhythm Vessels: normal peripheral pulses Extremities: + edema (Trace edema BLE) Gastrointestinal (Abdomen): normal bowel sounds, soft, nontender, no hepatosplenomegaly Musculoskeletal: no cyanosis or clubbing, extremities motor strength 5/5 (Strength testing in RLE limited secondary to fracture) Right hip pain with minimal movement Skin: no rashes, warm and dry Neurologic: PERRL, EOMI, accommodation nl, no face palsy, no dysarthria Psychiatric: A+Ox3, euthymic affect Principal Diagnosis (1) Intertrochanteric fracture of right femur: (2) Acute UTI: (3) Hypertension Discharge Exam Gen- elderly female in NAD, answering questions appropriately Head- NCAT, EOMI, Anicteric Sclera, No Posterior Pharyngeal Erythema Neck- Supple, No JVD, No Thyromegaly, No Masses Lungs- Clear to Auscultation Bilaterally, No Rales, No Rhonchi, No Wheezing, No Crepitus Chest- RRR, No Murmurs Abdomen- Soft, Bowel Sounds Present, Non Tender, Non Distended, No Rigidity, No Guarding Musculoskeletal- Full Range of Motion Bilaterally, No CVAT Extremities- No Cyanosis, No Clubbing, No Edema, TEDs applied Neuro- alert and oriented and answering questions appropriately, no facial asymmetry, speech fluent, Motor WNL, DTRs WNL, Strength WNL, Non Focal Psych-Normal Mood Discharge Data Allergies Allergy/AdvReac Type Severity Reaction Status Date / Time No Known Allergies Allergy Verified 03/08/20 19:10 Consultations 03/08/20 18:46 ED Decision to Admit Stat 03/08/20 21:42 Consult Anesthesiology Routine Consult Case Management - Discharge Planning Routine Consult Orthopedic Surgery Routine 03/09/20 10:02 Consult Case Management - Discharge Planning Routine 03/11/20 08:00 Consult Case Management - Discharge Planning Routine Procedures Performed Operation Date: 03/09/20 07:30 Actual Procedures p Right Long Troch Nail (Right) - August Stafford MD Ordered Studies 03/09/20 07:30 FL fluoroscopy <1hr Routine FL hip RT 2-3V Routine Hospital Course (1) Intertrochanteric fracture of right femur: -Patient presenting from home after suffering a mechanical fall -In the ED, femur x-ray shows acute intertrochanteric fracture of the right femur with mild impaction and slight angulation -Orthopedics, Dr. Stafford took her surgery 03/09 and performed a Right Long Troch Nail -No cardiopulmonary symptoms, CXR negative for acute findings, EKG no acute ST changes -Preoperative COVID-19 testing done Resume Post Op Care per Surgery Protocol Incentive Spirometry 10x per Hour Resume Relative Home Meds Where Appropriate PT/OT with appropriate fall precautions Transition from IV to PO Pain control DVT Prophylaxis Per Surgery Protocol - high-high TEDs, SCDs, ASA 81 mg BID (for 6 weeks) PT/OT. She can weightbear as tolerated in the right lower extremity. SNF / rehab, plan for dc to [facility] [place] Plan to follow up with orthopedics, Dr. Stafford, in 2-3 weeks (2) Acute UTI: -UA suggests UTI, may have contributed to fall -Does not appear septic -Continue Ceftriaxone while inpt, switch to cefuroxime PO after DC to finish Abx course (3) Hypertension: -BP controlled, continue amlodipine (4) DVT prophylaxis: -SCDs SC Heparin, TEDs, ASA BID Labs reviewed Total Time Total Time Spent Total Time Spent (In Minutes): 40 Total Time Includes: Examination of the Patient, Discharge Planning, Medication Reconciliation and Communication With Other Providers Discharge Plan Discharge Items Patient Disposition: Transfer Long Term Fac Reason For Visit: HIP FX Discharge Diagnosis: IM Nail right hip fracture (1) Intertrochanteric fracture of right femur: (2) Acute UTI: (3) Hypertension: Condition on Discharge: Good Activity: Per Instructions section Activity Comment: May weightbear as tolerated. Bathing: No limitations Exercise/Sports: None Driving/Machine Use: After Ortho eval Weightbearing: Full weightbearing Non-emergency contact: Primary Care Provider and Surgeon Call non-emergency contact if: you have any medication questions and your pain is worsening Follow-up/Referrals: August Stafford MD [Physician] - (Orthopedic follow-up 2-3 weeks from surgery date.) Linda Gonzalez DO [Primary Care Provider] - Diet: Regular Addtl Attending Provider Instructions: May fully weigthtbear as tolerated on right leg. Follow-up with orthopedics, Dr. Stafford, in 2-[address] Stafford's office with any questions regarding pt's right hip post-op care. Take aspirin 81 mg twice a day for 6 weeks, to prevent blood clot. Pending Studies at Discharge: No Stand-Alone Forms: My [facility] Skilled Items Patient informed of condition?: Yes DNR: No Discharge Level of Care: Skilled Communicable Disease: No Discharge Prognosis: Improving Lines: None Urinary Catheter: No Medications and DC Order Prescriptions: New sennosides-docusate sodium [Senokot-S] 8.6-50 mg Tablet 2 tab PO HS Qty: 60 RF: 0 aspirin 81 mg Tablet,Delayed Release (Dr/Ec) 81 mg PO BID Qty: 90 RF: 0 oxycodone 5 mg Tablet 5 mg PO Q4H PRN (Reason: pain) Qty: 30 RF: 0 acetaminophen [Tylenol Extra Strength] 500 mg tablet 500 mg PO Q4H Qty: 60 RF: 0 oxycodone 5 mg capsule 5 mg PO Q6H Qty: 30 RF: 0 aspirin [Aspirin Low Dose] 81 mg tablet,delayed release (DR/EC) 81 mg PO BID Qty: 90 RF: 0 sennosides-docusate sodium [Senna with Docusate Sodium] 8.6-50 mg tablet 1 tab-cap PO HS Qty: 60 RF: 0 oxycodone 5 mg tablet 5 mg PO Q6H PRN (Reason: pain) Qty: 30 RF: 0 aspirin 81 mg tablet,delayed release (DR/EC) 81 mg PO BID 42 Days Qty: 84 RF: 0 cefuroxime axetil 250 mg tablet 250 mg PO BID 2 Days Qty: 4 RF: 0 Continued cholecalciferol (vitamin D3) [Vitamin D3] 1,000 unit Capsule 1,000 unit PO QAM RF: 0 amlodipine 10 mg tablet 10 mg PO QAM RF: 0 Turmeric/Curcumin 1 cap PO QAM RF: 0 omeprazole 20 mg Tablet,Delayed Release (Dr/Ec) 20 mg PO DAILY PRN (Reason: Dyspepsia) RF: 0 docusate sodium [Colace] 100 mg Capsule 100 mg PO BID PRN (Reason: Constipation) 10 Days Qty: 0 RF: 0 Discharge Orders: Discharge Order (Routine); Ordered 03/12/20 Ordered By: Skyler Haro Admission Data Admit Date/Time: 03/08/20 19:11 Attending Provider: Jeremy Colin Admit Provider: Pat Case Primary Care Provider: Linda Gonzalez Other Providers: Pat Case ; Farheen Tracey ; August Stafford ; [facility] ; [facility] ; [facility] ; Skyler Grant
== END 2020-03-13 12:30 | DRG 481 ==
LOC: ED 14:41 → 3W 19:11 → SUATTDRO 19:11 → 3W 20:42

== ENCOUNTER 2022-04-09 09:03 | Inpatient (IN) ==
[2022-04-09] MEDS ORDERED: SODIUM CHLORIDE 0.9% 500 ML IV SCH (09:15)
--- NOTE | 2022-04-09 09:15 | Emergency Department Note ---
Impression & Plan Altered mental status, Hypokalemia, Pedal edema, Elevated lactic acid level ED Provider Note NAME: CORI SOLIS AGE: 82 SEX: F : 1940 ARRIVES VIA: Ambulance INFORMANT: [EMS, nursing] ED PROVIDER(S): [Kendall Chen MD] CHIEF COMPLAINT: Altered mental state HISTORY OF PRESENT ILLNESS: The patient is an 82-year-old female who presents to the ER with an altered mental status. As per the daughter, the patient seemed fine last night at 11:15 PM. This morning, at 7 AM, 8 hours later, she was confused. As per EMS, the blood sugar was 156. The patient had a vomiting episode when they were transferring her to the stretcher. She was given 4 mg of Zofran IV. The patient does not provide any history. She is currently nonverbal. As per EMS, she does move all extremities. Given the mental state, no further history obtainable. REVIEW OF SYSTEMS: Unobtainable given the mental state. PMHx/PSHx: See Below SOCIAL HISTORY: See Below. PHYSICAL EXAM: GENERAL: Patient is in no acute distress. HEENT: No acute trauma, normocephalic atraumatic, mucous membranes dry, no nasal congestion, no scleral icterus. Pupils equal and reactive to light. NECK: No stridor, no adenopathy, no meningismus, trachea is midline. LUNGS: Clear to auscultation bilaterally when listening anterior, no wheeze, no rhonchi, breath sounds equal. HEART: Without murmurs gallops or rubs, regular rate and rhythm. ABDOMEN: Soft, nontender, bowel sounds positive, no peritonitis. EXTREMITIES: No cyanosis, moderate bilateral pedal edema. No extremity deficits. NEUROLOGIC: Currently nonverbal, does move all extremities. SKIN: There is an erythematous, yeastlike rash in the area of the crease underneath the left breast. DIFFERENTIAL DIAGNOSIS: Infection, dehydration, sepsis, UTI, COVID-19, influenza, RSV, metabolic abnormality, hypo/hyperglycemia, electrolyte disturbance, anemia, hypoxia, cardiac sources, intracerebral event, toxicologic issues, stroke, TIA, as well as other pathologies. EMERGENCY DEPARTMENT COURSE/PROCEDURES: ECG: Indication was weakness. The ECG shows a sinus rhythm with PACs. There is a first-degree AV block. The rate is 76. 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 There is no ST elevation, no PVCs. The QTc is 429. Continuous Cardiac Monitoring: An order was placed for continuous cardiac monitoring. The monitor shows a rate of 74 with sinus rhythm with a first- degree AV block. Critical Care Note: I have personally spent 39 minutes of critical care time in the direct management of this patient. This includes bedside care, interpretation of diagnostic studies, and testing, discussion with consultants, patient, and family members, and other required patient management activities. This 39 minutes is in excess of all separately billable procedures. MEDICAL DECISION MAKING: There is no leukocytosis. No worrisome anemia. There is a normal platelet count. Potassium was low at 3. No renal failure. Lactic acid level was initially elevated consistent with dehydration or potentially infection. Repeat lactic acid level after hydration showed normalization of the value. No concerning liver enzyme elevation. The patient appears to be in a euthyroid state. Ammonia level was not elevated. ECG shows a sinus rhythm, no obvious ischemia. Cardiac enzyme testing x1 is not consistent with acute cardiac injury. Urinalysis does not show infection. COVID, influenza and RSV test were negative. Chest x-ray shows some chronic change, no pneumonia or CHF. Brain CT shows no acute bleed or mass-effect. On exam, the patient did have some bilateral pedal edema. She was seen to move all extremities. She was nonverbal and would not follow commands. She seemed quite tired. Patient received IV saline, 1 L. She was given IV potassium and IV cefepime. The cefepime was given for empiric antibiotic coverage. I did speak with the patient's daughter, Sharron. Recently, the patient was on antibiotics for a UTI. She has had no cough or congestion or recent respiratory illness. The patient does not walk on her own anymore. She is normally able to speak and interact verbally. The daughter felt the patient was at baseline last night and then altered this morning. The patient is not to have any aggressive measures as per the daughter. She would not want to be on a ventilator or have CPR. At this point, the cause for the mental status decline is unclear. Stroke is still a possibility of course. Infection is a possibility. I think the patient requires further care in the hospital, further work-up is warranted. I did speak with case management, the on-call hospitalist was consulted. Of note, the patient is not a tPA candidate given the 8 hours of time since her last known well. A stroke alert was not initialized. Past Med/Surg History Medical History Arthritis of right hip Fracture, intertrochanteric, right femur Hypertension Mild aortic valve regurgitation Mild mitral regurgitation Moderate tricuspid regurgitation Right knee DJD Surgical History History of total left hip replacement S/P cholecystectomy S/P tubal ligation Family History Mother Cancer Social History Smoking Status: Unknown if ever smoked Hx Alcohol Use: No Hx Substance Use: No Preferred Language: Wallisian Communication Ability: Effective Block Handler Required: No Beliefs That Will Affect Care: None marital status: Unknown Current Living Situation: Family Current Living Situation Comment: with daughter/familoy check ups Feels Safe at Home: Yes Assistive Devices: Denture - Upper, Denture - Lower, Glasses and Walker Allergies Allergies Allergy/AdvReac Type Severity Reaction Status Date / Time No Known Allergies Allergy Verified 03/08/20 19:10 Home Meds Home Medications Medication Instructions Recorded Confirmed cholecalciferol (vitamin D3) 25 1,000 unit PO QAM 01/21/18 07/24/20 mcg (1,000 unit) capsule (Vitamin D3) Turmeric/Curcumin 1 cap PO QAM 03/08/20 07/24/20 amlodipine 10 mg tablet 10 mg PO QAM 03/08/20 07/24/20 omeprazole 20 mg tablet,delayed 20 mg PO DAILY PRN Dyspepsia 03/08/20 07/24/20 release Previous Rx's Medication Instructions Recorded acetaminophen 500 mg tablet 500 mg PO Q4H #60 tabs 03/12/20 (Tylenol Extra Strength) aspirin 81 mg tablet,delayed 81 mg PO BID #90 tabs 03/12/20 release aspirin 81 mg tablet,delayed 81 mg PO BID #90 tabs 03/12/20 release (Nabil Low Dose Aspirin) sennosides 8.6 mg-docusate sodium 1 tab-cap PO HS #60 tabs 03/12/20 50 mg tablet (Senna with Docusate Sodium) sennosides 8.6 mg-docusate sodium 2 tab PO HS #60 tabs 03/12/20 50 mg tablet (Senokot-S) docusate sodium 100 mg capsule 100 mg PO BID PRN Constipation 10 03/13/20 (Colace) days #0 caps Results & Data (ED) Vital Signs Vital Signs - 24 hr 04/09/22 08:48 04/09/22 09:12 04/09/22 09:30 Temperature 36.4 C L Temperature Source Axillary Pulse Rate 65 Pulse Rate from SpO2 Sensor Pulse Rhythm Regular Pulse Strength Normal Respiratory Rate 14 Respiratory Effort / Characteristics Non-Labored Spontaneous Respiratory Depth Normal Blood Pressure 131/70 129/64 Blood Pressure Mean 90 85 Pulse Oximetry 96 95 Oxygen Delivery Method Room Air Room Air Sepsis Recent Fever Within 48 Hours No Sepsis New/Unexplained Change in Mental Status Yes Sepsis Action Taken by Nursing No Action Required 04/09/22 09:30 04/09/22 10:08 Temperature Temperature Source Pulse Rate 74 Pulse Rate from SpO2 Sensor 76 Pulse Rhythm Pulse Strength Respiratory Rate 19 Respiratory Effort / Characteristics Respiratory Depth Blood Pressure 127/65 Blood Pressure Mean 85 Pulse Oximetry 96 Oxygen Delivery Method Sepsis Recent Fever Within 48 Hours Sepsis New/Unexplained Change in Mental Status Sepsis Action Taken by [facility]pc Medications Current Medication List: was personally reviewed by me Laboratory Data Attestation: I reviewed the patient's lab results. Result diagrams: 04/09/22 09:20 04/09/22 09:20 Lab Results 04/09/22 04/09/22 04/09/22 Range/Units 09:20 09:20 09:20 WBC 10.46 (4.8-10.8) K/ul RBC 3.81 L (3.93-5.22) M/uL Hgb 11.9 L (12.0-16.0) g/dl Hct 36.7 (34.1-44.9) % MCV 96.3 (80.0-100.0) fL MCH 31.2 (25.0-34.0) pg MCHC 32.4 (32.0-36.0) g/dL RDW Std Deviation 49.6 H (36.4-46.3) fL RDW Coeff of Dana 14.0 (11.5-14.5) % Plt Count 303 (130-400) K/uL MPV 10.0 (9.4-12.3) fL Immature Gran % (Auto) 0.4 % Neut % (Auto) 91.8 % Lymph % (Auto) 3.8 % Finney % (Auto) 3.9 % Eos % (Auto) 0.0 % Baso % (Auto) 0.1 % Neut # (Auto) 9.60 H (1.4-6.5) K/uL Lymph # (Auto) 0.40 L (1.2-3.4) K/uL Finney # (Auto) 0.41 (0.24-0.82) K/uL Eos # (Auto) 0.00 (0-0.50) K/uL Baso # (Auto) 0.01 (0-0.2) K/uL Immature Gran # (Auto) 0.04 H (0.00-0.02) K/uL Echinocytes 1+ Sodium 144 (136-145) mmol/L Potassium 3.0 L (3.5-5.1) mmol/L Chloride 108 H (98-107) mmol/L Carbon Dioxide 26 (21-32) mmol/L Anion Gap 10 (3-11) BUN 20 (6-23) mg/dl Creatinine 0.52 L (0.6-1.2) mg/dl Est Cr Clr Drug Dosing 61.9 ml/min Est GFR ( Amer) 101.7 ml/min Est GFR (Non-Af Amer) 87.7 ml/min BUN/Creatinine Ratio 38.5 H (10-20) Glucose 127 H (70-99(Fasting)) mg/dl Lactate 2.6 H* (0.4-2.0) mmol/L Calcium 10.2 H (8.5-10.1) mg/dl Magnesium 2.0 (1.7-2.4) mg/dl Total Bilirubin 0.7 (0.2-1.0) mg/dl AST 20 (13-39) U/L ALT 18 (7-52) U/L Alkaline Phosphatase 83 (34-104) U/L Ammonia (18-72) umol/L Troponin I High Sens 5.8 (0-14) pg/ml Total Protein 6.5 (6.0-8.3) gm/dl Albumin 4.1 (3.4-5.0) gm/dl Globulin 2.4 L (2.5-4.0) gm/dl Albumin/Globulin Ratio 1.7 (0.9-2) TSH (0.300-4.500) uIu/ml Urine Color Urine Appearance (Clear) Urine pH (4.5-7.5) Ur Specific [place] (1.000-1.030) Urine Protein (Negative) Urine Glucose (UA) (Negative) Urine Ketones (Negative) Urine Blood (Negative) Urine Nitrite (Negative) Urine Bilirubin (Negative) Urine Urobilinogen (Negative) Ur Leukocyte Esterase (Negative) Urine WBC (Auto) (0-5) /hpf Urine RBC (Auto) (0-4) /hpf U Hyaline Cast (Auto) (0-5) /lpf U Epithel Cells (Auto) (0-5) /lpf Urine Bacteria (Auto) (Negative) SARS-CoV-2 (PCR) (Negative) Influenza Type A (PCR) (Neg) Influenza Type B (PCR) (Neg) RSV (RT-PCR) (Neg) 04/09/22 04/09/22 04/09/22 Range/Units 09:20 09:22 09:44 WBC (4.8-10.8) K/ul RBC (3.93-5.22) M/uL Hgb (12.0-16.0) g/dl Hct (34.1-44.9) % MCV (80.0-100.0) fL MCH (25.0-34.0) pg MCHC (32.0-36.0) g/dL RDW Std Deviation (36.4-46.3) fL RDW Coeff of Dana (11.5-14.5) % Plt Count (130-400) K/uL MPV (9.4-12.3) fL Immature Gran % (Auto) % Neut % (Auto) % Lymph % (Auto) % Finney % (Auto) % Eos % (Auto) % Baso % (Auto) % Neut # (Auto) (1.4-6.5) K/uL Lymph # (Auto) (1.2-3.4) K/uL Finney # (Auto) (0.24-0.82) K/uL Eos # (Auto) (0-0.50) K/uL Baso # (Auto) (0-0.2) K/uL Immature Gran # (Auto) (0.00-0.02) K/uL Echinocytes Sodium (136-145) mmol/L Potassium (3.5-5.1) mmol/L Chloride (98-107) mmol/L Carbon Dioxide (21-32) mmol/L Anion Gap (3-11) BUN (6-23) mg/dl Creatinine (0.6-1.2) mg/dl Est Cr Clr Drug Dosing ml/min Est GFR ( Amer) ml/min Est GFR (Non-Af Amer) ml/min BUN/Creatinine Ratio (10-20) Glucose (70-99(Fasting)) mg/dl Lactate (0.4-2.0) mmol/L Calcium (8.5-10.1) mg/dl Magnesium (1.7-2.4) mg/dl Total Bilirubin (0.2-1.0) mg/dl AST (13-39) U/L ALT (7-52) U/L Alkaline Phosphatase (34-104) U/L Ammonia 19.0 (18-72) umol/L Troponin I High Sens (0-14) pg/ml Total Protein (6.0-8.3) gm/dl Albumin (3.4-5.0) gm/dl Globulin (2.5-4.0) gm/dl Albumin/Globulin Ratio (0.9-2) TSH 1.671 (0.300-4.500) uIu/ml Urine Color Urine Appearance (Clear) Urine pH (4.5-7.5) Ur Specific [place] (1.000-1.030) Urine Protein (Negative) Urine Glucose (UA) (Negative) Urine Ketones (Negative) Urine Blood (Negative) Urine Nitrite (Negative) Urine Bilirubin (Negative) Urine Urobilinogen (Negative) Ur Leukocyte Esterase (Negative) Urine WBC (Auto) (0-5) /hpf Urine RBC (Auto) (0-4) /hpf U Hyaline Cast (Auto) (0-5) /lpf U Epithel Cells (Auto) (0-5) /lpf Urine Bacteria (Auto) (Negative) SARS-CoV-2 (PCR) NEGATIVE (Negative) Influenza Type A (PCR) Negative (Neg) Influenza Type B (PCR) Negative (Neg) RSV (RT-PCR) Negative (Neg) 04/09/22 04/09/22 Range/Units 11:05 Unknown WBC (4.8-10.8) K/ul RBC (3.93-5.22) M/uL Hgb (12.0-16.0) g/dl Hct (34.1-44.9) % MCV (80.0-100.0) fL MCH (25.0-34.0) pg MCHC (32.0-36.0) g/dL RDW Std Deviation (36.4-46.3) fL RDW Coeff of Dana (11.5-14.5) % Plt Count (130-400) K/uL MPV (9.4-12.3) fL Immature Gran % (Auto) % Neut % (Auto) % Lymph % (Auto) % Finney % (Auto) % Eos % (Auto) % Baso % (Auto) % Neut # (Auto) (1.4-6.5) K/uL Lymph # (Auto) (1.2-3.4) K/uL Finney # (Auto) (0.24-0.82) K/uL Eos # (Auto) (0-0.50) K/uL Baso # (Auto) (0-0.2) K/uL Immature Gran # (Auto) (0.00-0.02) K/uL Echinocytes Sodium (136-145) mmol/L Potassium (3.5-5.1) mmol/L Chloride (98-107) mmol/L Carbon Dioxide (21-32) mmol/L Anion Gap (3-11) BUN (6-23) mg/dl Creatinine (0.6-1.2) mg/dl Est Cr Clr Drug Dosing ml/min Est GFR ( Amer) ml/min Est GFR (Non-Af Amer) ml/min BUN/Creatinine Ratio (10-20) Glucose (70-99(Fasting)) mg/dl Lactate 1.7 (0.4-2.0) mmol/L Calcium (8.5-10.1) mg/dl Magnesium (1.7-2.4) mg/dl Total Bilirubin (0.2-1.0) mg/dl AST (13-39) U/L ALT (7-52) U/L Alkaline Phosphatase (34-104) U/L Ammonia (18-72) umol/L Troponin I High Sens (0-14) pg/ml Total Protein (6.0-8.3) gm/dl Albumin (3.4-5.0) gm/dl Globulin (2.5-4.0) gm/dl Albumin/Globulin Ratio (0.9-2) TSH (0.300-4.500) uIu/ml Urine Color Yellow Urine Appearance Clear (Clear) Urine pH 5.5 (4.5-7.5) Ur Specific [place] 1.026 (1.000-1.030) Urine Protein Negative (Negative) Urine Glucose (UA) Negative (Negative) Urine Ketones 1+ H (Negative) Urine Blood Negative (Negative) Urine Nitrite Negative (Negative) Urine Bilirubin Negative (Negative) Urine Urobilinogen Negative (Negative) Ur Leukocyte Esterase Trace H (Negative) Urine WBC (Auto) 1-5 (0-5) /hpf Urine RBC (Auto) 0-4 (0-4) /hpf U Hyaline Cast (Auto) 1-5 (0-5) /lpf U Epithel Cells (Auto) >30 H (0-5) /lpf Urine Bacteria (Auto) Negative (Negative) SARS-CoV-2 (PCR) (Negative) Influenza Type A (PCR) (Neg) Influenza Type B (PCR) (Neg) RSV (RT-PCR) (Neg) Administered Medications Discontinued Medications Sodium Chloride (Nss) 500 mls @ 999 mls/hr IV .Q31M MAGGIE Stop: 04/09/22 09:45 Last Infusion: 04/09/22 09:58 Dose: 0 mls/hr Documented By: Admin: 04/09/22 09:27 Dose: 999 mls/hr Documented By: HS Sodium Chloride (Nss 1000ml) 500 mls @ 999 mls/hr IV .Q31M ONE Stop: 04/09/22 10:45 Last Infusion: 04/09/22 10:52 Dose: 0 mls/hr Documented By: Admin: 04/09/22 10:21 Dose: 999 mls/hr Documented By: HS Cefepime HCl (Maxipime) 2,000 mg in 20 mls @ 5 mls/min IV NOW STA; Protocol Stop: 04/09/22 10:18 Last Admin: 04/09/22 10:20 Dose: 5 mls/min Documented By: KATHY Potassium Chloride (K Oleg / Wtr) 10 meq in 100 mls @ 100 mls/hr IV ONE ONE; Protocol Stop: 04/09/22 11:15 Last Infusion: 04/09/22 11:20 Dose: 0 mls/hr Documented By: Admin: 04/09/22 10:20 Dose: 100 mls/hr Documented By: HS Imaging Data Radiologist's Impression: Chest X-Ray 04/09/22 09:11 SINGLE VIEW CHEST CLINICAL HISTORY: Generalized weakness. FINDINGS: An AP, portable, upright chest radiograph is compared to study dated 03/08/2020. The examination is degraded by portable technique and patient rotation. The heart is enlarged noting atherosclerotic calcification of the thoracic aorta. The pulmonary vasculature is noncongested. Enlargement of the pulmonary arteries is unchanged and suggests pulmonary artery hypertension. Chronic residual thickening is similar to previous. There is bibasilar scarring/atelectasis. The lungs and pleural spaces are clear. No pneumothorax is seen. The skeletal structures are osteopenic. The bony thorax is grossly intact. Arthritic change is noted in the shoulders and spine. Cholecystectomy clips are seen in the right upper quadrant. IMPRESSION: Mild cardiomegaly with no acute cardiopulmonary abnormality identified. ACT 112: Negative or not required by law. Electronically signed by: Kendall Nassar M.D. 04/09/2022 9:[address] 04/09/22 09:11 CT SCAN OF THE BRAIN WITHOUT IV CONTRAST CLINICAL HISTORY: Change in mental status. COMPARISON STUDY: No priors. TECHNIQUE: Unenhanced axial CT scan of the brain is performed from the vertex to the skull base. A dose lowering technique was utilized adhering to the principles of ALARA. CT DOSE: 729.78 mGycm FINDINGS: Brain parenchyma: There is age-related involutional change noting mild subcortical and periventricular microangiopathic disease. There is no hemorrhage, mass effect, or evidence of acute territorial ischemia by CT criteria. Bell-white matter differentiation is preserved. No extra-axial fluid collection is seen. Ventricles, sulci, cisterns: Prominent secondary to involutional change. Intracranial vasculature: There is atherosclerotic calcification of the cavernous carotid arteries. Calvarium: Unremarkable. Sinuses and mastoids: A 5 mm osteoma is noted in the right frontal sinus. The paranasal sinuses are otherwise clear. The mastoid air cells are well pneumatized. Orbits: The bony orbits are grossly intact. IMPRESSION: There is no hemorrhage, mass effect, or evidence of acute territorial ischemia by CT criteria. ACT 112: Negative or not required by law. Electronically signed by: Kendall Nassar M.D. 04/09/2022 10:12 AM Discharge Plan Visit Data Chief Complaint: Altered Mental Status Stated Complaint: AMS ED Provider: Kendall Chen Discharge Problem: Altered mental status, Hypokalemia, Pedal edema, Elevated lactic acid level Patient Disposition: Admitted As Inpatient Condition: Fair Forms Stand Alone Forms: My [facility] [employer] Prescriptions Prescriptions: No Action cholecalciferol (vitamin D3) [Vitamin D3] 1,000 unit Capsule 1,000 unit PO QAM amlodipine 10 mg tablet 10 mg PO QAM Turmeric/Curcumin 1 cap PO QAM omeprazole 20 mg Tablet,Delayed Release (Dr/Ec) 20 mg PO DAILY PRN (Reason: Dyspepsia) sennosides-docusate sodium [Senokot-S] 8.6-50 mg Tablet 2 tab PO HS Qty: 60 0RF aspirin 81 mg Tablet,Delayed Release (Dr/Ec) 81 mg PO BID Qty: 90 0RF acetaminophen [Tylenol Extra Strength] 500 mg tablet 500 mg PO Q4H Qty: 60 0RF Rx Instructions: Q4WA x 5 days then PRN aspirin [Nabil Low Dose Aspirin] 81 mg tablet,delayed release (DR/EC) 81 mg PO BID Qty: 90 0RF sennosides-docusate sodium [Senna with Docusate Sodium] 8.6-50 mg tablet 1 tab-cap PO HS Qty: 60 0RF docusate sodium [Colace] 100 mg Capsule 100 mg PO BID PRN (Reason: Constipation) 10 Days Qty: 0 0RF Referrals Referrals: Linda Gonzalez DO [Primary Care Provider] -
--- NOTE | 2022-04-09 09:36 | XRay Report ---
SINGLE VIEW CHEST CLINICAL HISTORY: Generalized weakness. FINDINGS: An AP, portable, upright chest radiograph is compared to study dated 03/08/2020. The examin ation is degraded by portable technique and patient rotation. The heart is enlarged noting atheroscl erotic calcification of the thoracic aorta. The pulmonary vasculature is noncongested. Enlargement of the pulmonary arteries is unchanged and suggests pulmonary artery hypertension. Chronic residual thi ckening is similar to previous. There is bibasilar scarring/atelectasis. The lungs and pleural spaces are clear. No pneumothorax is seen. The skeletal structures are osteopenic. The bony thorax is gross ly intact. Arthritic change is noted in the shoulders and spine. Cholecystectomy clips are seen in th e right upper quadrant. IMPRESSION: Mild cardiomegaly with no acute cardiopulmonary abnormality identified. ACT 112: Negative or not required by law. Electronically signed by: Kendall Nassar M.D. 04/09/2022 9:35 AM
[2022-04-09 09:37] LABS: Hematocrit (blood only) 36.7 % (34.1-44.9); Hemoglobin 11.9 g/dl (12.0-16.0); Mean Corpuscular Hemoglobin 31.2 pg (25.0-34.0); Mean Corpuscular Hgb Conc 32.4 g/dL (32.0-36.0); Mean Corpuscular Volume 96.3 fL (80.0-100.0); Platelet Count 303 K/uL (130-400); RDW Standard Deviation 49.6 fL (36.4-46.3); Red Blood Count 3.81 M/uL (3.93-5.22); White Blood Count 10.46 K/ul (4.8-10.8)
[2022-04-09 09:45] LABS: Appearance Urine Clear (Clear); Bacteria Urine Automated Negative (Negative); Bilirubin Urine Negative (Negative); Blood Urine Negative (Negative); Color Urine Yellow; Epithelial Cell Urine Auto >30 /lpf (0-5); Glucose Urine UA Negative (Negative); Ketones Urine 1+ (Negative); Leukocyte Esterase Urine Trace (Negative); Nitrite Urine Negative (Negative); Protein Urine Negative (Negative); RBC Urine Automated 0-4 /hpf (0-4); Specific Gravity Urine 1.026 (1.000-1.030); Urobilinogen Urine Negative (Negative); pH Urine 5.5 (4.5-7.5)
[2022-04-09 10:02] LABS: Basophils # (auto) 0.01 K/uL (0-0.2); Basophils % (auto) 0.1 %; Echinocytes 1+; Immature Granulocytes # (auto) 0.04 K/uL (0.00-0.02); Immature Granulocytes % (auto) 0.4 %; Lymphocytes % (auto) 3.8 %; Monocytes # (auto) 0.41 K/uL (0.24-0.82); Monocytes % (auto) 3.9 %; Neutrophils % (auto) 91.8 %
[2022-04-09 10:06] LABS: Albumin Globulin Ratio 1.7 (0.9-2); Albumin Level 4.1 gm/dl (3.4-5.0); BUN Creatinine Ratio 38.5 (10-20); Bilirubin,Total 0.7 mg/dl (0.2-1.0); Calcium 10.2 mg/dl (8.5-10.1); Creatinine Clr Calc Pharmacy 61.9 ml/min; Est GFR (African American) 101.7 ml/min; Est GFR (Non-African American) 87.7 ml/min; Globulin 2.4 gm/dl (2.5-4.0); Total Protein 6.5 gm/dl (6.0-8.3); Troponin I High Sensitivity 5.8 pg/ml (0-14)
--- NOTE | 2022-04-09 10:14 | CT Scan Report ---
CT SCAN OF THE BRAIN WITHOUT IV CONTRAST CLINICAL HISTORY: Change in mental status. COMPARISON STUDY: No priors. TECHNIQUE: Unenhanced axial CT scan of the brain is performed from the vertex to the skull base. A do se lowering technique was utilized adhering to the principles of ALARA. CT DOSE: 729.78 mGycm FINDINGS: Brain parenchyma: There is age-related involutional change noting mild subcortical and periventricula r microangiopathic disease. There is no hemorrhage, mass effect, or evidence of acute territorial isc hemia by CT criteria. Bell-white matter differentiation is preserved. No extra-axial fluid collection is seen. Ventricles, sulci, cisterns: Prominent secondary to involutional change. Intracranial vasculature: There is atherosclerotic calcification of the cavernous carotid arteries. Calvarium: Unremarkable. Sinuses and mastoids: A 5 mm osteoma is noted in the right frontal sinus. The paranasal sinuses are o therwise clear. The mastoid air cells are well pneumatized. Orbits: The bony orbits are grossly intact. IMPRESSION: There is no hemorrhage, mass effect, or evidence of acute territorial ischemia by CT gerardo walsh. ACT 112: Negative or not required by law. Electronically signed by: Kendall Nassar M.D. 04/09/2022 10:12 AM
[2022-04-09] MEDS ORDERED: CEFEPIME 2,000 MG/20 ML VIAL IV STA (10:15)
[2022-04-09] MEDS ORDERED: SODIUM CHLORIDE 0.9% 1000ML 500 ML IV ONE (10:15)
[2022-04-09] MEDS ORDERED: POTASSIUM CHLORIDE / WTR 10 MEQ/100 ML PLCT IV ONE (10:16)
[2022-04-09 10:17] LABS: Influenza A virus by PCR Negative (Neg); Influenza B virus by PCR Negative (Neg); RSV by PCR Negative (Neg); SARS CoV2 RNA(COVID-19) Ceph NEGATIVE (Negative)
--- NOTE | 2022-04-09 10:53 | History & Physical Report ---
Date of Service April 09, 2022 Assessment & Plan (1) Encephalopathy acute: (2) Shingles: Plan: - Admit to PCU - Concern for aseptic meningitis with acute mental status change and hallucinations within the past few nights, erythematous rash from left chest wall from breast to the umbilicus which is dermatomal. Possible stroke with acute mental change since last known well last night so will obtain MRI since CT negative. Recently completed a course of antibiotics for UTI, negative UA today, Park placed in the ER. - Afebrile, no WBC - LP ordered - discussed with radiology - appreciate assistance - INR and plts are ok for procedure - NPO for now - Placed on contact/airborne precautions - Start on acyclovir IV Q8H - Follow blood cultures, received cefepime IV in the ER, can hold on further antibiotics at this time (3) Lactic acidosis: Plan: - Initially lactate was 2.7, improved with NSS (4) Hypertension: Plan: -May continue amlodipine 10 mg daily - BP well controlled presently (5) Hypokalemia: Plan: - On admission was 3.0, replace with IV as cannot take PO due to acute AMS as above (6) Ambulatory dysfunction: Plan: - Wheelchair bound with requiring a 2 person assist at home for the past 2 months, limited ambulation - PT/OT consults (7) Peripheral edema: Plan: - Bilateral lower extremity edema, pt is not on diuretic, unsure if the edema is worse than her baseline - Obtain U/S of BLE to eval for DVT with limited mobility DVT ppx: - teds, scds, no chemical ppx in the setting of needing LP CODE: DNR/DNI - discussed with Sharron Wilson, daughter via phone Dispo: From home, likely to remain in the hospital x 1-2 days (8) Severe protein-calorie malnutrition: History of Present Illness Chief Complaint: AMS Primary Care Provider: Linda Gonzalez DO This is a 89-year-old female with PMHx of HTN, tricuspid and mitral regurg, osteoporosis, history of left hip replacement, history of pressure ulcers, dementia who presents to the ER via EMS due to worsening altered mental status which was noticed by her daughter this morning around 8 AM. On 04/01 she was in to see her PCP for urinary complaints including dysuria and was started on an Keflex 500 mg x7 days which she completed yesterday. The patient awakens to verbal stimuli when i come in the room, however is lethargic and quickly falls back asleep, and is unable to provide any information. She makes a few moaning sounds. Pt does not follow commands but does move all her extremities slightly. The patient is unable to provide any history due to AMS. I contacted her daughter, Sharron Wilson, who reports she woke up last night screaming "get me out of here" and thought that she was in the basement, also seeing cats in the house which aren't really there. Hallucinations have been present for about 1 month and consistent. They admit that she has not been walking for at least 2 months. They also notice she is loosing strength. Sharron and her sister lift her and help to get her into wheelchair/ put her on the toilet with a 2 assist. They have not had PT/OT into the home and 2 weeks ago actually refused this at the PCP office during the last visit. She takes a tylenol for pain in her knees due to arthritis several times a day but does not seem to help. Sharron feels she has early onset dementia due to repeating herself often, the hallucinations, and concern over losing money but it actually is in her purse. She is typically knows her daughters, but does not know her own address at times. Daughter is unsure if she would be able to orient to time. Denies any recent falls or injuries. She was not aware, nor her sister, of the rash which I described that was on her chest/abdomen. Allergies Allergy/AdvReac Type Severity Reaction Status Date / Time No Known Allergies Allergy Verified 03/08/20 19:10 Home Medications Medication Instructions Recorded Confirmed Type cholecalciferol (vitamin D3) 25 1,000 unit PO QAM 01/21/18 04/09/22 History mcg (1,000 unit) capsule (Vitamin D3) amlodipine 10 mg tablet 10 mg PO QAM 03/08/20 04/09/22 History omeprazole 20 mg tablet,delayed 20 mg PO DAILY PRN Dyspepsia 03/08/20 04/09/22 History release acetaminophen 500 mg tablet 500 mg PO Q4H #60 tabs 03/12/20 04/09/22 Rx (Tylenol Extra Strength) sennosides 8.6 mg-docusate sodium 1 tab-cap PO HS #60 tabs 03/12/20 04/09/22 Rx 50 mg tablet (Senna with Docusate Sodium) docusate sodium 100 mg capsule 100 mg PO BID PRN Constipation 10 03/13/20 04/09/22 Rx (Colace) days #0 caps Past Med/Surg History Medical History Arthritis of right hip Fracture, intertrochanteric, right femur Hypertension Mild aortic valve regurgitation Mild mitral regurgitation Moderate tricuspid regurgitation Right knee DJD Surgical History History of total left hip replacement S/P cholecystectomy S/P tubal ligation Family History Mother Cancer Social History Smoking Status: Never smoker Second Hand Exposure: No; Do You Dip or Chew Tobacco: No; Tobacco Cessation Education Requested by Patient: No Hx Alcohol Use: No Hx Substance Use: No Preferred Language: Citizen Of [place] Communication Ability: Effective Communication Ability Comment: vision problems Campus Supervisor Required: No Beliefs That Will Affect Care: None marital status: Unknown Current Living Situation: Family Current Living Situation Comment: with Jacinta Quintero Other Information That Helps Us Care for You: No Feels Safe at Home: Yes Safety Concerns: Feels Safe At This Time Assistive Devices: Walker Review of Systems Review of Systems: Unobtainable due to cognitive status Physical Exam Physical Exam: General: lethargic, awakens to verbal stimuli but falls asleep easily, nonverbal currently, does not follow commands, ill appearing, + cachectic appearing, BMI 19 Head: Normocephalic, atraumatic ENT: PERRL, EOMI, no pharyngeal exudate, mucous membranes dry with some yellow staining around her mouth, + upper denture plate Chest: Clear to auscultation with faint crackles at bases bilaterally, on room air, no wheeze or rales Cardiac: Regular rate and rhythm, +soft systolic murmur, no JVD, normal peripheral pulses, good capillary refill Skin: erythematous rash overlying the left chest at the nipple line extending down to the umbilicus, does not cross the midline and extends laterally but does not wrap around rib cage. Abdominal: NABS x 4 quadrants, soft, nondistended, nontender to palpation, no rebound or guarding Extremities: 2+ peripheral pitting edema with areas of blisters due to fluid accumulation, no erythema, + onychomycosis of the toenails, calfs nontender to palpation Psych: Unable to assess due to AMS Neuro: Awakens to verbal stimuli, nonverbal but does moan at times like she is attempting to talk, does not follow commands, moves all extremities but not on command, strength unable to be assessed Results & Data Results & Data ([facility]) Vital Signs (Past 12 Hours) Vital Signs Temp Pulse Resp BP Pulse Ox O2 Del Method 04/09/22 10:08 127/65 04/09/22 09:30 74 19 96 04/09/22 09:30 129/64 04/09/22 09:12 95 Room Air 04/09/22 08:48 36.4 C L 65 14 131/70 96 Room Air Laboratory Results 04/09/22 09:44 Aerobic Blood Culture - Pending Blood Anaerobic Blood Culture - Pending 04/09/22 09:20 Aerobic Blood Culture - Pending Blood Anaerobic Blood Culture - Pending 04/09/22 04/09/22 04/09/22 Unknown 09:44 09:22 WBC RBC Hgb Hct MCV MCH MCHC RDW Std Deviation RDW Coeff of Dana Plt Count MPV Immature Gran % (Auto) Neut % (Auto) Lymph % (Auto) [place] % (Auto) Eos % (Auto) Baso % (Auto) Neut # (Auto) Lymph # (Auto) [place] # (Auto) Eos # (Auto) Baso # (Auto) Immature Gran # (Auto) Echinocytes Sodium Potassium Chloride Carbon Dioxide Anion Gap BUN Creatinine Est Cr Clr Drug Dosing Est GFR ( Amer) Est GFR (Non-Af Amer) BUN/Creatinine Ratio Glucose Lactate Calcium Magnesium Total Bilirubin AST ALT Alkaline Phosphatase Ammonia 19.0 Troponin I High Sens Total Protein Albumin Globulin Albumin/Globulin Ratio TSH Urine Color Yellow Urine Appearance Clear Urine pH 5.5 Ur Specific Happy 1.026 Urine Protein Negative Urine Glucose (UA) Negative Urine Ketones 1+ H Urine Blood Negative Urine Nitrite Negative Urine Bilirubin Negative Urine Urobilinogen Negative Ur Leukocyte Esterase Trace H Urine WBC (Auto) 1-5 Urine RBC (Auto) 0-4 U Hyaline Cast (Auto) 1-5 U Epithel Cells (Auto) >30 H Urine Bacteria (Auto) Negative SARS-CoV-2 (PCR) NEGATIVE Influenza Type A (PCR) Negative Influenza Type B (PCR) Negative RSV (RT-PCR) Negative 04/09/22 04/09/22 04/09/22 09:20 09:20 09:20 WBC RBC Hgb Hct MCV MCH MCHC RDW Std Deviation RDW Coeff of Dana Plt Count MPV Immature Gran % (Auto) Neut % (Auto) Lymph % (Auto) [place] % (Auto) Eos % (Auto) Baso % (Auto) Neut # (Auto) Lymph # (Auto) [place] # (Auto) Eos # (Auto) Baso # (Auto) Immature Gran # (Auto) Echinocytes Sodium 144 Potassium 3.0 L Chloride 108 H Carbon Dioxide 26 Anion Gap 10 BUN 20 Creatinine 0.52 L Est Cr Clr Drug Dosing 61.9 Est GFR ( Amer) 101.7 Est GFR (Non-Af Amer) 87.7 BUN/Creatinine Ratio 38.5 H Glucose 127 H Lactate 2.6 H* Calcium 10.2 H Magnesium 2.0 Total Bilirubin 0.7 AST 20 ALT 18 Alkaline Phosphatase 83 Ammonia Troponin I High Sens 5.8 Total Protein 6.5 Albumin 4.1 Globulin 2.4 L Albumin/Globulin Ratio 1.7 TSH 1.671 Urine Color Urine Appearance Urine pH Ur Specific Happy Urine Protein Urine Glucose (UA) Urine Ketones Urine Blood Urine Nitrite Urine Bilirubin Urine Urobilinogen Ur Leukocyte Esterase Urine WBC (Auto) Urine RBC (Auto) U Hyaline Cast (Auto) U Epithel Cells (Auto) Urine Bacteria (Auto) SARS-CoV-2 (PCR) Influenza Type A (PCR) Influenza Type B (PCR) RSV (RT-PCR) 04/09/22 09:20 WBC 10.46 RBC 3.81 L Hgb 11.9 L Hct 36.7 MCV 96.3 MCH 31.2 MCHC 32.4 RDW Std Deviation 49.6 H RDW Coeff of Dana 14.0 Plt Count 303 MPV 10.0 Immature Gran % (Auto) 0.4 Neut % (Auto) 91.8 Lymph % (Auto) 3.8 [place] % (Auto) 3.9 Eos % (Auto) 0.0 Baso % (Auto) 0.1 Neut # (Auto) 9.60 H Lymph # (Auto) 0.40 L [place] # (Auto) 0.41 Eos # (Auto) 0.00 Baso # (Auto) 0.01 Immature Gran # (Auto) 0.04 H Echinocytes 1+ Sodium Potassium Chloride Carbon Dioxide Anion Gap BUN Creatinine Est Cr Clr Drug Dosing Est GFR ( Amer) Est GFR (Non-Af Amer) BUN/Creatinine Ratio Glucose Lactate Calcium Magnesium Total Bilirubin AST ALT Alkaline Phosphatase Ammonia Troponin I High Sens Total Protein Albumin Globulin Albumin/Globulin Ratio TSH Urine Color Urine Appearance Urine pH Ur Specific Happy Urine Protein Urine Glucose (UA) Urine Ketones Urine Blood Urine Nitrite Urine Bilirubin Urine Urobilinogen Ur Leukocyte Esterase Urine WBC (Auto) Urine RBC (Auto) U Hyaline Cast (Auto) U Epithel Cells (Auto) Urine Bacteria (Auto) SARS-CoV-2 (PCR) Influenza Type A (PCR) Influenza Type B (PCR) RSV (RT-PCR) Diagnostic Findings Chest X-Ray 04/09/22 09:11 SINGLE VIEW CHEST CLINICAL HISTORY: Generalized weakness. FINDINGS: An AP, portable, upright chest radiograph is compared to study dated 03/08/2020. The examination is degraded by portable technique and patient rotation. The heart is enlarged noting atherosclerotic calcification of the thoracic aorta. The pulmonary vasculature is noncongested. Enlargement of the pulmonary arteries is unchanged and suggests pulmonary artery hypertension. Chronic residual thickening is similar to previous. There is bibasilar scarring/atelectasis. The lungs and pleural spaces are clear. No pneumothorax is seen. The skeletal structures are osteopenic. The bony thorax is grossly intact. Arthritic change is noted in the shoulders and spine. Cholecystectomy clips are seen in the right upper quadrant. IMPRESSION: Mild cardiomegaly with no acute cardiopulmonary abnormality identified. ACT 112: Negative or not required by law. Electronically signed by: Kendall Nassar M.D. 04/09/2022 9:[address] 04/09/22 09:11 CT SCAN OF THE BRAIN WITHOUT IV CONTRAST CLINICAL HISTORY: Change in mental status. COMPARISON STUDY: No priors. TECHNIQUE: Unenhanced axial CT scan of the brain is performed from the vertex to the skull base. A dose lowering technique was utilized adhering to the principles of ALARA. CT DOSE: 729.78 mGycm FINDINGS: Brain parenchyma: There is age-related involutional change noting mild subcor tical and periventricular microangiopathic disease. There is no hemorrhage, mass effect, or evidence of acute territorial ischemia by CT criteria. Bell-white matter differentiation is preserved. No extra-axial fluid collection is seen. Ventricles, sulci, cisterns: Prominent secondary to involutional change. Intracranial vasculature: There is atherosclerotic calcification of the cavernous carotid arteries. Calvarium: Unremarkable. Sinuses and mastoids: A 5 mm osteoma is noted in the right frontal sinus. The paranasal sinuses are otherwise clear. The mastoid air cells are well pneumatize d. Orbits: The bony orbits are grossly intact. IMPRESSION: There is no hemorrhage, mass effect, or evidence of acute territorial ischemia by CT criteria. ACT 112: Negative or not required by law. Electronically signed by: Kendall Nassar M.D. 04/09/2022 10:12 AM ECG Additional Comments: 09-APR-2022 09:12:00 [facility]-EDSTAT ROUTINE RETRIEVAL Sinus rhythm with 1st degree A-V block with Premature supraventricular complexes Left axis deviation Anteroseptal infarct (cited on or before 09-MAY-2014) Abnormal ECG When compared with ECG of 08-MAR-2020 16:33, Premature supraventricular complexes are now Present Questionable change in initial forces of Septal leads 25mm/s10mm/[id number]: [id number] by: REFERRED SELF Unconfirmed Vent. rate 76 BPM RI interval 216 ms QRS duration 86 ms QT/QTc 382/429 ms Code Status & VTE Plan Code Status DNR/DNI Supervising Physician Co-Signing Physician Notes I have seen and examined the patient and have discussed the case with the provider above. I agree with the assessment and plan as stated with the following exceptions. The patient is an 82-year-old female who lives at home with her daughter who has been bedbound for the past two months secondary to generalized leg weakness. She presents with acute confusion that has been progressively worse per family over the last month. On examination she is obtunded and unable to give a history but is demonstrating no issues with respiratory distress . Later during the interview she was able to wake up and say her first name and follow my instructions to squeeze my fingers bilaterally and take deep breaths. She is very weak and cachectic and appearing malnourished. Initially there was a rash found under her left breast that was thought to be shingles and with her encephalopathic state, encephalitis was considered, specifically HSV or VZV encephalitis. She was started on empiric acyclovir intravenously and set up for an lumbar puncture. Lab work revealed no thrombocytopenia, no coagulopathy and CT of the head revealed no evidence of mass, midline shift or other acute intracranial abnormality. She underwent a fluoroscopy assisted LP by the interventional radiologist. Unfortunately this was a dry tap and no CSF could be collected. On reevaluation on the floor she was more awake and alert and was able to give a history that she was not having any pain. She still had some disorientation but appeared improved from a mental standpoint. There was no longer concern for encephalitis and vitals remained stable without fever or other signs of infection. There was no evidence of infection that would require antibiotics and these were withheld. Acyclovir was stopped. The rash on her abdomen appeared more consistent with tinea corporis, or typical dermatophyte infection. Topical terbinafine was started after a thorough cleansing of skin fold debris that was present in this area. Her skin appears unkempt and the patient reports that she bathes herself and usually does a sponge bath as she has not been able to get into the bathtub for the last two months successfully. Daughters help at home but are taking shifts to help mom. The patient also has a known sacral decubitus ulcer that is unstageable. Daughter reports she sits in her chair most of the day and shifts her body position independently. Today she is so weak she cannot shift her body position independently, however. Ulcer does not appear infected but there is nonblanchable redness surrounding the opening. Lab work reflects dehydration/poor p.o. intake and she was given normal saline and potassium replacement. When she was more alert and regular diet was ordered. Nutrition was consulted. Overall this is an 82-year-old female with recurrent intermittent delirium without a clear cause. Continue monitoring, nutrition status, PT OT and other evaluations for deeper understanding of this pattern of symptom. She may have underlying dementia but her baseline mental status is described as normal per her daughters. She is improved later this evening and is oriented. MRI was ordered when she was obtunded which is still a good idea as there is no other clear cause for her confusion and obtunded state earlier today. Of note, she did report some issues with insomnia and may have not gotten much sleep overnight contributing to her state this morning. Continue monitoring for now. Armaan, DO
[2022-04-09] MEDS ORDERED: ACYCLOVIR SOD IV SCH ×2 (12:30→16:34)
[2022-04-09] MEDS ORDERED: DEXTROSE 5% IV SCH ×2 (12:30→16:34)
[2022-04-09] MEDS: POTASSIUM CHLORIDE / WTR 10 MEQ/100 ML PLCT IV SCH ×2 (12:59→14:42)
--- NOTE | 2022-04-09 13:54 | Ultrasound Report ---
BILATERAL LOWER EXTREMITY VENOUS DOPPLER HISTORY: Edema, eval for DVT COMPARISON STUDY: None. FINDINGS: The bilateral common femoral and superficial femoral veins appear patent. There is occlusiv e thrombus within the right popliteal vein. The bilateral anterior tibial veins are patent. The bilat eral posterior tibial and peroneal veins are identified likely due to the subcutaneous edema and steve ent positioning. The left popliteal vein is patent. IMPRESSION: 1. Right popliteal deep vein thrombosis. 2. No DVT within the visualized left lower extremity. ACT 112: Negative or not required by law. Electronically signed by: Eloy Soria M.D. 04/09/2022 1:53 PM
[2022-04-09 14:49] LABS: Amphetamines+Metham, Urine Neg (Neg); Barbiturates, Urine Neg (Neg); Benzodiazepine, Urine Neg (Neg); Cocaine, Urine Neg (Neg); MDMA (Ecstacy), Urine Neg (Neg); Methadone, Urine Neg (Neg); Opiate, Urine Neg (Neg); Phencyclidine, Urine Neg (Neg)
[2022-04-09] MEDS: SODIUM CHLORIDE 0.9% 500 ML IV SCH ×2 (14:49→21:49)
--- NOTE | 2022-04-09 15:19 | Fluoroscopy Report ---
FLUOROSCOPICALLY GUIDED LUMBAR PUNCTURE CLINICAL HISTORY: Altered mental status, shingles rash FLUOROSCOPY TIME: 0.5 minutes. A single fluoroscopic spot image of the lumbar spine. PROCEDURE: The procedure, risks and benefits were discussed with the patient's daughter including th e risk of spinal headache, bleeding and infection. The patient's daughter agreed to the procedure and informed consent was obtained via telephone. The procedure was performed by Dr. Soria following a timeout. The right L5-S1 and L4-L5 interlaminar spaces were targeted. Skin overlying the space was prepped and draped in the usual sterile fashion and local anesthesia was achieved with 1% lidocaine. Under intermittent fluoroscopic guidance, a 20-gauge x 3 1/2 in. Sprotte needle was inserted into int o the L5-S1 and L4-L5 levels. The needle entered the thecal sac at the L5-S1 level. However, cerebral spinal fluid was unable to be obtained. Therefore, this is consistent with a dry tap. The patient to lerated the procedure well. There were no immediate complications. IMPRESSION: Fluoroscopic guided lumbar puncture attempted. The needle was able to access the thecal s ac at the L5-S1 level. However, cerebral spinal fluid was unable to be obtained. Therefore, this is c onsistent with a dry tap. No immediate complications. ACT 112: Negative or not required by law. Electronically signed by: Eloy Soria M.D. 04/09/2022 3:16 PM
--- NOTE | 2022-04-09 15:24 | Electrocardiogram Report ---
Test Reason : Blood Pressure : / mmHG Vent. Rate : 076 BPM Atrial Rate : 076 BPM P-R Int : 216 ms QRS Dur : 086 ms QT Int : 382 ms P-R-T Axes : 066 -53 048 degrees QTc Int : 429 ms Sinus rhythm with 1st degree A-V block with Premature supraventricular complexes Left axis deviation Old Anteroseptal infarct (cited on or before 09-MAY-2014) Abnormal ECG When compared with ECG of 08-MAR-2020 16:33, Premature supraventricular complexes are now Present Confirmed by Mango Gonzalez ([id number]) on 04/09/2022 3:23:43 PM Referred By: REFERRED SELF Confirmed By:Mango Gonzalez
[2022-04-09] MEDS ORDERED: PHARMACIST DISCHARGE MED REC CONSULT PRN (16:34)
[2022-04-09] MEDS ORDERED: TERBINAFINE CR 30 GM TUBE EXT SCH (17:00)
[2022-04-10] MEDS: SODIUM CHLORIDE 0.9% 500 ML IV SCH ×3 (06:31→21:45)
[2022-04-10 07:18] LABS: Basophils # (auto) 0.03 K/uL (0-0.2); Basophils % (auto) 0.5 %; Eosinophils # (auto) 0.01 K/uL (0-0.50); Eosinophils % (auto) 0.2 %; Hematocrit (blood only) 34.3 % (34.1-44.9); Immature Granulocytes # (auto) 0.04 K/uL (0.00-0.02); Immature Granulocytes % (auto) 0.6 %; Lymphocytes # (auto) 1.04 K/uL (1.2-3.4); Lymphocytes % (auto) 15.7 %; Mean Corpuscular Hemoglobin 30.8 pg (25.0-34.0); Mean Corpuscular Hgb Conc 32.1 g/dL (32.0-36.0); Mean Corpuscular Volume 96.1 fL (80.0-100.0); Mean Platelet Volume 10.2 fL (9.4-12.3); Monocytes # (auto) 0.47 K/uL (0.24-0.82); Monocytes % (auto) 7.1 %; Neutrophils # (auto) 5.04 K/uL (1.4-6.5); Neutrophils % (auto) 75.9 %; Platelet Count 283 K/uL (130-400); RDW Coefficient of Variation 14.1 % (11.5-14.5); RDW Standard Deviation 49.7 fL (36.4-46.3); Red Blood Count 3.57 M/uL (3.93-5.22); White Blood Count 6.63 K/ul (4.8-10.8)
[2022-04-10] MEDS ORDERED: Heparin IV Adult Wt-Based Low-Dose WITH Bolus Protocol IV SCH (07:25)
[2022-04-10 07:30] LABS: Estimated Average Glucose 105 mg/dl; Hemoglobin A1C 5.3 % (4.5-5.6)
[2022-04-10] MEDS ORDERED: HEPARIN SOD (PORCINE) 1000 UNIT/ML IV ONE (07:37)
[2022-04-10 07:46] LABS: Calcium 8.5 mg/dl (8.5-10.1); Chol HDL Ratio 2.6 (0-5); Creatinine Clr Calc Pharmacy 93.6 ml/min; Est GFR (African American) 113.7 ml/min; Est GFR (Non-African American) 98.1 ml/min; Potassium 3.4 mmol/L (3.5-5.1)
[2022-04-10] MEDS: HEPARIN SODIUM/DEXTROSE 25,000 UNITS/500 ML BAG IV SCH (08:39)
--- NOTE | 2022-04-10 08:45 | Neurology Consultation ---
Date of Consultation April 10, 2022 Assessment & Plan (1) Encephalopathy acute: Plan Neurology Consultation Assessment: pt with likely metabolic disorder with dehydration and insomnia resulting in her acute confusion initially in setting of dementia. she is currently not encephalopathic and does not seems to have CHIEF ULTRASOUND TECHNOLOGIST infection as pt is now back to baseline and doing well. Recommendations: -not much to offer from neurology stand point. continue supportive care and avoid dehydration focus on nutritional care. i do not see clear need for further CHIEF ULTRASOUND TECHNOLOGIST infection work up at this point. will sign off. please call again if new question. andrews hernandez MD [facility] neurology HPI: pt this morning feeling much better. talking well and able to communicate well. no sign of confusion or distress. LP was dry tab. chart reviwed. Admission/prior HPI note:This is a 89-year-old female with PMHx of HTN, tricuspid and mitral regurg, osteoporosis, history of left hip replacement, history of pressure ulcers, dementia who presents to the ER via EMS due to worsening altered mental status which was noticed by her daughter this morning around 8 AM. On 04/01 she was in to see her PCP for urinary complaints including dysuria and was started on an Keflex 500 mg x7 days which she completed yesterday. The patient awakens to verbal stimuli when i come in the room, however is lethargic and quickly falls back asleep, and is unable to provide any information. She makes a few moaning sounds. Pt does not follow commands but d oes move all her extremities slightly. The patient is unable to provide any history due to AMS. I contacted her daughter, Sharron Wilson, who reports she woke up last night screaming "get me out of here" and thought that she was in the basement, also seeing cats in the house which aren't really there. Hallucinations have been present for about 1 month and consistent. They admit that she has not been walking for at least 2 months. They also notice she is loosing strength. Sharron and her sister lift her and help to get her into wheelchair/ put her on the toilet with a 2 assist. They have not had PT/OT into the home and 2 weeks ago actually refused this at the PCP office during the last visit. She takes a tylenol for pain in her knees due to arthritis several times a day but does not seem to help. Sharron feels she has early onset dementia due to repeating herself often, the hallucinations, and concern over losing money but it actually is in her purse. She is typically knows her daughters, but does not know her own address at times. Daughter is unsure if she would be able to orient to time. Denies any recent falls or injuries. She was not aware, nor her sister, of the rash which I described that was on her chest/abdomen. ROS: per HPI Med list: see chart PMHx/SHx: see chart Neuro Exam: Mental: alert and oriented to place and herself. knew sean was coming. not sure of year. she knew her name. able to carry out good conversation and she even knew about her DVT in her leg. , Fluent speech, normal comprehension, no apraxia, no neglect. no finger agnosia. no left/right confusion. pt has baseline dementia. CN: PERRL, Full EOM, symmetric face, tongue midline. SCM/Traps 5/5 Motor: 5-/5 t/o symmetric bilaterally. No abnormal movements. Sens: intact to touch b/l Coord: intact DTR: toes down b/l History of Present Illness Attending Physician: Sesar Mckee MD Allergies Allergy/AdvReac Type Severity Reaction Status Date / Time No Known Allergies Allergy Verified 03/08/20 19:10 Home Medications Medication Instructions Recorded Confirmed Type cholecalciferol (vitamin D3) 25 1,000 unit PO QAM 01/21/18 04/09/22 History mcg (1,000 unit) capsule (Vitamin D3) amlodipine 10 mg tablet 10 mg PO QAM 03/08/20 04/09/22 History omeprazole 20 mg tablet,delayed 20 mg PO DAILY PRN Dyspepsia 03/08/20 04/09/22 History release acetaminophen 500 mg tablet 500 mg PO Q4H #60 tabs 03/12/20 04/09/22 Rx (Tylenol Extra Strength) sennosides 8.6 mg-docusate sodium 1 tab-cap PO HS #60 tabs 03/12/20 04/09/22 Rx 50 mg tablet (Senna with Docusate Sodium) docusate sodium 100 mg capsule 100 mg PO BID PRN Constipation 10 03/13/20 04/09/22 Rx (Colace) days #0 caps Patient History Medical History (Updated 04/10/22 @ 08:51 by Andrews Hernandez MD) Arthritis of right hip Encephalopathy acute Fracture, intertrochanteric, right femur Hypertension Mild aortic valve regurgitation Mild mitral regurgitation Moderate tricuspid regurgitation Right knee DJD Surgical History History of total left hip replacement S/P cholecystectomy S/P tubal ligation Family History Mother Cancer Social History Smoking Status: Never smoker Second Hand Exposure: No; Do You Dip or Chew Tobacco: No; Tobacco Cessation Education Requested by Patient: No Hx Alcohol Use: No Hx Substance Use: No Preferred Language: Slovak Communication Ability: Effective Communication Ability Comment: vision problems Planimeter Operator Required: No Beliefs That Will Affect Care: None marital status: Unknown Current Living Situation: Family Current Living Situation Comment: with Jacinta Quintero Other Information That Helps Us Care for You: No Feels Safe at Home: Yes Safety Concerns: Feels Safe At This Time Assistive Devices: Walker Results & Data ([facility]) Vital Signs (Past 12 Hours) Vital Signs Temp Pulse Resp BP Pulse Ox Pulse Ox O2 Del Method 04/10/22 07:49 36.9 C 71 18 122/80 97 Room Air 04/10/22 02:42 36.8 C 70 18 113/65 94 Room Air 04/10/22 00:00 94 04/09/22 22:50 36.5 C 68 18 119/69 94 Room Air O2 Del Method 04/10/22 07:49 04/10/22 02:42 04/10/22 00:00 Nasal Cannula 04/09/22 22:50
--- NOTE | 2022-04-10 09:08 | Electrocardiogram Report ---
Test Reason : Blood Pressure : / mmHG Vent. 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
[2022-04-10] MEDS ORDERED: DOCUSATE SODIUM 100 MG CAP PO PRN (10:05)
[2022-04-10] MEDS ORDERED: POTASSIUM CHLORIDE CRTAB 20 MEQ TABCR PO ONE (10:15)
[2022-04-10] MEDS: POTASSIUM CHLORIDE / WTR 10 MEQ/100 ML PLCT IV SCH ×2 (11:43→13:10)
[2022-04-10] MEDS: PANTOprazole 40 MG TAB PO SCH (11:43)
--- NOTE | 2022-04-10 12:54 | Hospitalist Progress Note ---
Date of Service April 10, 2022 Assessment & Plan (1) Encephalopathy acute: Plan: Acute metabolic encephalopathy Initially though to have aseptic meningitis--Less likely Dehydration H/O Recent UTI--completed 10-day course of Keflex 2 days prior to admission No urine culture obtained as outpatient as per patient's daughter Lactic acidosis resolved with IV fluids Sacral Wound -POA -CT head:There is no hemorrhage, mass effect, or evidence of acute territorial ischemia by CT criteria. -S/P lumbar puncture--dry tap -Blood culture pending Wound care consulted Empirically received Cefepime Afebrile, No leucocytosis Continue IV fluid Right lower extremity DVT --Venous Doppler: Right popliteal deep vein thrombosis. No DVT within the visualized left lower extremity. Continue IV heparin Transition to Eliquis as able--as preferred by patient/family (2) Lactic acidosis: Plan: Resolved with IV fluids (3) Hypertension: Plan: -Resume amlodipine as able Monitor BP (4) Hypokalemia: Plan: Replete electrolytes as needed Monitor (5) Ambulatory dysfunction: Plan: - Wheelchair bound with requiring a 2 person assist at home for the past 2 months, limited ambulation - PT/OT eval - Fall precautions (6) Peripheral edema: Plan: Management as above Tinea corporis Continue Terbinafine DVT Px: IV heparin CODE STATUS: DNR/DNI Disposition PT/OT prior to discharge (7) Severe protein-calorie malnutrition: Admission and Anticipated Discharge Date Admission Date: April 09, 2022 Subjective Patient is seen and examined at bedside Mental status seem to be back to baseline Patient oriented during my encounter Has bilateral leg edema Denies any chest pain, dyspnea, dizziness, nausea, abdominal pain, dysuria Discussed with patient's daughter over the phone Review of Systems Review of Systems: All systems reviewed & are unremarkable except as noted in Subjective Physical Exam Physical Exam: Physical Exam: Vitals signs as noted above General Appearance:Thin, frail, Elderly, no apparent distress Head: normocephalic, Atraumatic Eyes: normal inspection, EOMI Neck: supple, Trachea midline Respiratory/Chest: Normal breath sounds, CTA, No accessory muscle use Cardiovascular: S1, S2, No murmur Abdomen/GI:Soft, Non tender, Bowel sounds present Extremities/Musculoskeletal:normal inspection, LE edema R> L Neurologic/Psych:AAOX2, grossly no focal neurological deficits Skin: normal color, warm, Erythematous rash under breast Results & Data Results & Data ([facility]) Vital Signs (Past 12 Hours) Vital Signs Temp Pulse Resp BP Pulse Ox Pulse Ox O2 Del Method 04/10/22 11:52 36.9 C 86 18 128/82 97 Room Air 04/10/22 08:00 95 04/10/22 07:49 36.9 C 71 18 122/80 97 Room Air 04/10/22 02:42 36.8 C 70 18 113/65 94 Room Air O2 Del Method 04/10/22 11:52 04/10/22 08:00 Room Air 04/10/22 07:49 04/10/22 02:42 Laboratory Results Short CBC 04/10/22 Range/Units 06:42 WBC 6.63 (4.8-10.8) K/ul Hgb 11.0 L (12.0-16.0) g/dl Hct 34.3 (34.1-44.9) % Plt Count 283 (130-400) K/uL [facility] 04/10/22 06:42 Sodium 141 Potassium 3.4 L Chloride 108 H Carbon Dioxide 27 BUN 10 Creatinine 0.37 L Glucose 83 Calcium 8.5
[2022-04-10 15:15] LABS: Partial Thromboplastin Ratio 1.7
[2022-04-10 15:24] LABS: Partial Thromboplastin Time 47.1 Seconds (21.0-31.0)
[2022-04-10] MEDS: DOCUSATE SODIUM/SENNA 50/8.6MG TAB PO SCH (21:45)
[2022-04-10] MEDS ORDERED: SODIUM CHLORIDE 0.65% NA SOLN 45 ML (OCEAN) ONE (21:56)
[2022-04-10] MEDS: TERBINAFINE CR 30 GM TUBE EXT SCH (22:57)
[2022-04-11 07:12] LABS: Basophils # (auto) 0.03 K/uL (0-0.2); Basophils % (auto) 0.5 %; Eosinophils # (auto) 0.01 K/uL (0-0.50); Eosinophils % (auto) 0.2 %; Hematocrit (blood only) 33.8 % (34.1-44.9); Hemoglobin 10.9 g/dl (12.0-16.0); Immature Granulocytes # (auto) 0.03 K/uL (0.00-0.02); Immature Granulocytes % (auto) 0.5 %; Lymphocytes # (auto) 1.35 K/uL (1.2-3.4); Lymphocytes % (auto) 22.7 %; Mean Corpuscular Hemoglobin 31.1 pg (25.0-34.0); Mean Corpuscular Hgb Conc 32.2 g/dL (32.0-36.0); Mean Corpuscular Volume 96.3 fL (80.0-100.0); Monocytes # (auto) 0.46 K/uL (0.24-0.82); Monocytes % (auto) 7.7 %; Neutrophils # (auto) 4.08 K/uL (1.4-6.5); Neutrophils % (auto) 68.4 %; Platelet Count 287 K/uL (130-400); RDW Coefficient of Variation 14.3 % (11.5-14.5); RDW Standard Deviation 50.2 fL (36.4-46.3); Red Blood Count 3.51 M/uL (3.93-5.22); White Blood Count 5.96 K/ul (4.8-10.8)
[2022-04-11 07:37] LABS: Partial Thromboplastin Ratio 1.7
[2022-04-11 07:39] LABS: BUN Creatinine Ratio 22.9 (10-20); Calcium 8.6 mg/dl (8.5-10.1); Creatinine Clr Calc Pharmacy 88.4 ml/min; Est GFR (African American) 115.8 ml/min; Est GFR (Non-African American) 99.9 ml/min; Magnesium 1.8 mg/dl (1.7-2.4); Potassium 3.4 mmol/L (3.5-5.1)
[2022-04-11 07:48] LABS: Partial Thromboplastin Time 47.4 Seconds (21.0-31.0)
[2022-04-11] MEDS: TERBINAFINE CR 30 GM TUBE EXT SCH ×2 (08:02→20:47)
[2022-04-11] MEDS ORDERED: POTASSIUM CHLORIDE CRTAB 20 MEQ TABCR PO ONE (08:41)
[2022-04-11] MEDS: PANTOprazole 40 MG TAB PO SCH (09:43)
[2022-04-11] MEDS: POTASSIUM CHLORIDE / WTR 10 MEQ/100 ML PLCT IV SCH ×2 (09:45→11:40)
[2022-04-11] MEDS: DOXYCYCLINE HYCLATE 100 MG CAP PO SCH ×2 (11:03→20:48)
[2022-04-11] MEDS: APIXABAN 5 MG TABLET PO SCH ×2 (11:03→20:48)
[2022-04-11] MEDS: ACETAMINOPHEN 500 MG TAB PO PRN ×3 (11:40→20:47)
[2022-04-11] MEDS: HEPARIN SODIUM/DEXTROSE 25,000 UNITS/500 ML BAG IV SCH (13:33)
--- NOTE | 2022-04-11 16:38 | Hospitalist Progress Note ---
Date of Service April 11, 2022 Assessment & Plan (1) Encephalopathy acute: Plan: Acute metabolic encephalopathy Initially though to have aseptic meningitis--Less likely Dehydration H/O Recent UTI--completed 10-day course of Keflex 2 days prior to admission No urine culture obtained as outpatient as per patient's daughter Lactic acidosis resolved with IV fluids Sacral Wound Stage 2 -POA -CT head:There is no hemorrhage, mass effect, or evidence of acute territorial ischemia by CT criteria. -S/P lumbar puncture--dry tap -Blood culture No growth to date Continue wound care, doxycycline Afebrile, No leucocytosis Received IV fluids Mental status back to baseline Right lower extremity DVT --Venous Doppler: Right popliteal deep vein thrombosis. No DVT within the visualized left lower extremity. IV heparin discontinued Transition to Eliquis as per patient/family preference (2) Lactic acidosis: Plan: Resolved with IV fluids (3) Hypertension: Plan: -Resume amlodipine if needed Monitor BP BP stable currently (4) Hypokalemia: Plan: Replete electrolytes as needed Monitor (5) Ambulatory dysfunction: Plan: - Wheelchair bound with requiring a 2 person assist at home for the past 2 months, limited ambulation - PT/OT eval - Fall precautions (6) Peripheral edema: Plan: Management as above Tinea corporis Continue Terbinafine DVT Px: Eliquis CODE STATUS: DNR/DNI Disposition PT/OT prior to discharge (7) Severe protein-calorie malnutrition: Admission and Anticipated Discharge Date Admission Date: April 09, 2022 Subjective Patient is seen and examined at bedside States having some discomfort at sacral wound region Has bilateral leg edema Poor historian Denies any chest pain, dyspnea, dizziness, nausea, abdominal pain, dysuria Review of Systems Review of Systems: All systems reviewed & are unremarkable except as noted in Subjective Physical Exam Physical Exam: Physical Exam: Vitals signs as noted above General Appearance:Thin, frail, Elderly, no apparent distress Head: normocephalic, Atraumatic Eyes: normal inspection, EOMI Neck: supple, Trachea midline Respiratory/Chest: Normal breath sounds, CTA, No accessory muscle use Cardiovascular: S1, S2, No murmur Abdomen/GI:Soft, Non tender, Bowel sounds present Extremities/Musculoskeletal:normal inspection, LE edema R> L Neurologic/Psych:AAOX2, grossly no focal neurological deficits Skin: normal color, warm, Erythematous rash under breast Results & Data Results & Data ([facility]) Vital Signs (Past 12 Hours) Vital Signs Temp Pulse Resp BP BP Pulse Ox O2 Del Method 04/11/22 15:44 36.9 C 91 H 17 123/59 L 95 Room Air 04/11/22 11:50 36.7 C 63 107/62 98 Room Air 04/11/22 08:00 Room Air 04/11/22 07:51 36.6 C 18 124/69 95 Room Air Laboratory Results Short CBC 04/11/22 Range/Units 06:42 WBC 5.96 (4.8-10.8) K/ul Hgb 10.9 L (12.0-16.0) g/dl Hct 33.8 L (34.1-44.9) % Plt Count 287 (130-400) K/uL [facility] 04/11/22 06:42 Sodium 142 Potassium 3.4 L Chloride 108 H Carbon Dioxide 30 BUN 8 Creatinine 0.35 L Glucose 87 Calcium 8.6
[2022-04-11 19:30] LABS: A calco-baum cmplx NotReported Not Detected (NotDetected); Bact fragilis Not Reported Not Detected (NotDetected); C auris Not Reported Not Detected (NotDetected); Calbicans Not Reported Not Detected (NotDetected); Candida glabrata Not Reported Not Detected (NotDetected); Candida krusei Not Reported Not Detected (NotDetected); Cneoformans/gatti Not Reported Not Detected (NotDetected); Cparapsilosis Not Reported Not Detected (NotDetected); Ctropicalis Not Reported Not Detected (NotDetected); E cloacae compx Not Reported Not Detected (NotDetected); Efaecalis Not Reported Not Detected (NotDetected); Efaecium Not Reported Not Detected (NotDetected); Enterobacterales Not Reported Not Detected (NotDetected); Escherichia coli Not Reported Not Detected (NotDetected); H influenzae Not Reported Not Detected (NotDetected); K aerogenes Not Reported Not Detected (NotDetected); Koxytoca Not Reported Not Detected (NotDetected); Kpneumoniae grp Not Reported Not Detected (NotDetected); Lmonocyt Not Reported Not Detected (NotDetected); N meningitidis Not Reported Not Detected (NotDetected); P aeruginosa Not Reported Not Detected (NotDetected); Proteus spp Not Reported Not Detected (NotDetected); Salmonella spp Not Reported Not Detected (NotDetected); Smarcescens Not Reported Not Detected (NotDetected); Staph lugdunensis Not Reported Not Detected (NotDetected); Staph spp. Not Reported Not Detected (NotDetected); Staphaureus Not Reported Not Detected (NotDetected); Staphepi Not Reported Not Detected (NotDetected); Stenmaltophilia Not Reported Not Detected (NotDetected); Strep agal(GrpB) Not Reported Not Detected (NotDetected); Strep pneum Not Reported Not Detected (NotDetected); Strep pyog (GrpA) Not Reported Not Detected (NotDetected); Strep spp Not Reported Not Detected (NotDetected)
[2022-04-11] MEDS: DOCUSATE SODIUM/SENNA 50/8.6MG TAB PO SCH (20:49)
[2022-04-12 05:56] LABS: Basophils # (auto) 0.04 K/uL (0-0.2); Basophils % (auto) 0.7 %; Eosinophils # (auto) 0.01 K/uL (0-0.50); Eosinophils % (auto) 0.2 %; Hematocrit (blood only) 32.2 % (34.1-44.9); Hemoglobin 10.7 g/dl (12.0-16.0); Immature Granulocytes # (auto) 0.02 K/uL (0.00-0.02); Immature Granulocytes % (auto) 0.3 %; Lymphocytes # (auto) 1.17 K/uL (1.2-3.4); Lymphocytes % (auto) 19.1 %; Mean Corpuscular Hemoglobin 31.1 pg (25.0-34.0); Mean Corpuscular Hgb Conc 33.2 g/dL (32.0-36.0); Mean Corpuscular Volume 93.6 fL (80.0-100.0); Mean Platelet Volume 10.1 fL (9.4-12.3); Monocytes # (auto) 0.47 K/uL (0.24-0.82); Monocytes % (auto) 7.7 %; Neutrophils # (auto) 4.41 K/uL (1.4-6.5); Platelet Count 294 K/uL (130-400); RDW Standard Deviation 47.8 fL (36.4-46.3); Red Blood Count 3.44 M/uL (3.93-5.22); White Blood Count 6.12 K/ul (4.8-10.8)
[2022-04-12 06:41] LABS: BUN Creatinine Ratio 26.3 (10-20); Creatinine Clr Calc Pharmacy 82.3 ml/min; Est GFR (African American) 112.7 ml/min; Est GFR (Non-African American) 97.3 ml/min; Magnesium 1.9 mg/dl (1.7-2.4); Potassium 3.9 mmol/L (3.5-5.1)
[2022-04-12] MEDS: APIXABAN 5 MG TABLET PO SCH ×2 (08:07→20:14)
[2022-04-12] MEDS: PANTOprazole 40 MG TAB PO SCH (08:07)
[2022-04-12] MEDS: TERBINAFINE CR 30 GM TUBE EXT SCH ×2 (08:07→20:14)
[2022-04-12] MEDS: DOXYCYCLINE HYCLATE 100 MG CAP PO SCH ×2 (08:07→20:14)
[2022-04-12] MEDS: ACETAMINOPHEN 500 MG TAB PO PRN (11:54)
--- NOTE | 2022-04-12 15:44 | Hospitalist Progress Note ---
Date of Service April 12, 2022 Assessment & Plan (1) Encephalopathy acute: Plan: Acute metabolic encephalopathy Initially though to have aseptic meningitis--Less likely Dehydration H/O Recent UTI--completed 10-day course of Keflex 2 days prior to admission No urine culture obtained as outpatient as per patient's daughter Lactic acidosis resolved with IV fluids Sacral Wound Stage 2 -POA -CT head:There is no hemorrhage, mass effect, or evidence of acute territorial ischemia by CT criteria. -S/P lumbar puncture--dry tap -Blood culture No growth to date Continue wound care, doxycycline Afebrile, No leucocytosis Received IV fluids Mental status back to baseline Right lower extremity DVT --Venous Doppler: Right popliteal deep vein thrombosis. No DVT within the visualized left lower extremity. IV heparin discontinued Transition to Eliquis as per patient/family preference Continue Eliquis 10 mg twice a day for 1 week and then transition to 5 mg twice a day. Abnormal blood culture 1/4 blood culture growing gram-positive cocci in clusters Repeat blood cultures ordered (2) Lactic acidosis: Plan: Resolved with IV fluids (3) Hypertension: Plan: -Resume amlodipine if needed Monitor BP BP variable (4) Hypokalemia: Plan: Replete electrolytes as needed Monitor (5) Ambulatory dysfunction: Plan: - Wheelchair bound with requiring a 2 person assist at home for the past 2 months, limited ambulation - PT/OT eval - Fall precautions (6) Peripheral edema: Plan: Management as above Tinea corporis Continue Terbinafine DVT Px: Eliquis CODE STATUS: DNR/DNI Disposition PT/OT prior to discharge (7) Severe protein-calorie malnutrition: Admission and Anticipated Discharge Date Admission Date: April 09, 2022 Subjective Patient is seen and examined at bedside Reports minimal leg pain with movement Also has some discomfort at sacral region Denies any chest pain, dyspnea, dizziness, nausea, abdominal pain, dysuria No other complaints Review of Systems Review of Systems: All systems reviewed & are unremarkable except as noted in Subjective Physical Exam Physical Exam: Physical Exam: Vitals signs as noted above General Appearance:Thin, frail, Elderly, no apparent distress Head: normocephalic, Atraumatic Eyes: normal inspection, EOMI Neck: supple, Trachea midline Respiratory/Chest: Normal breath sounds, CTA, No accessory muscle use Cardiovascular: S1, S2, No murmur Abdomen/GI:Soft, Non tender, Bowel sounds present Extremities/Musculoskeletal:normal inspection, LE edema R> L Neurologic/Psych:AAOX2, grossly no focal neurological deficits Skin: normal color, warm, Erythematous rash under breast Results & Data Results & Data ([facility]) Vital Signs (Past 12 Hours) Vital Signs Temp Pulse Resp BP BP Pulse Ox O2 Del Method 04/12/22 15:25 37.5 C 66 20 148/73 H 93 Room Air 04/12/22 11:40 37.5 C 90 18 109/65 93 Room Air 04/12/22 08:00 Room Air 04/12/22 07:53 36.7 C 87 18 154/80 H 93 Room Air 04/12/22 04:17 37.1 C 81 18 117/57 L 94 Room Air Laboratory Results Short CBC 04/12/22 Range/Units 05:21 WBC 6.12 (4.8-10.8) K/ul Hgb 10.7 L (12.0-16.0) g/dl Hct 32.2 L (34.1-44.9) % Plt Count 294 (130-400) K/uL [facility] 04/12/22 05:21 Sodium 140 Potassium 3.9 Chloride 106 Carbon Dioxide 29 BUN 10 Creatinine 0.38 L Glucose 90 Calcium 9.0
[2022-04-12] MEDS: DOCUSATE SODIUM/SENNA 50/8.6MG TAB PO SCH (20:14)
[2022-04-13 07:38] LABS: BUN Creatinine Ratio 41.7 (10-20); Calcium 9.2 mg/dl (8.5-10.1); Creatinine Clr Calc Pharmacy 86.9 ml/min; Est GFR (African American) 114.8 ml/min; Potassium 3.7 mmol/L (3.5-5.1)
[2022-04-13] MEDS: PANTOprazole 40 MG TAB PO SCH (08:01)
[2022-04-13] MEDS: APIXABAN 5 MG TABLET PO SCH ×2 (08:01→21:03)
[2022-04-13] MEDS: DOXYCYCLINE HYCLATE 100 MG CAP PO SCH ×2 (08:01→21:03)
[2022-04-13] MEDS: TERBINAFINE CR 30 GM TUBE EXT SCH ×2 (08:01→21:03)
--- NOTE | 2022-04-13 15:29 | Hospitalist Progress Note ---
Date of Service April 13, 2022 Assessment & Plan (1) Encephalopathy acute: Plan: Acute metabolic encephalopathy Initially though to have aseptic meningitis--Less likely Dehydration H/O Recent UTI--completed 10-day course of Keflex 2 days prior to admission No urine culture obtained as outpatient as per patient's daughter Lactic acidosis resolved with IV fluids Sacral Wound Stage 2 -POA -CT head:There is no hemorrhage, mass effect, or evidence of acute territorial ischemia by CT criteria. -S/P lumbar puncture--dry tap -Blood culture No growth to date Continue wound care, doxycycline Afebrile, No leucocytosis Received IV fluids Mental status back to baseline Right lower extremity DVT --Venous Doppler: Right popliteal deep vein thrombosis. No DVT within the visualized left lower extremity. IV heparin discontinued Transition to Eliquis as per patient/family preference Continue Eliquis 10 mg twice a day for 1 week and then transition to 5 mg twice a day. Continue Eliquis per protocol Abnormal blood culture 1/4 blood culture growing anaerobic gram-positive cocci Repeat blood cultures: No growth to date (2) Lactic acidosis: Plan: Resolved with IV fluids (3) Hypertension: Plan: -Resume amlodipine if needed Monitor BP BP variable (4) Hypokalemia: Plan: Replete electrolytes as needed Monitor (5) Ambulatory dysfunction: Plan: - Wheelchair bound with requiring a 2 person assist at home for the past 2 months, limited ambulation - PT/OT eval - Fall precautions (6) Peripheral edema: Plan: Management as above Tinea corporis Continue Terbinafine DVT Px: Eliquis CODE STATUS: DNR/DNI Disposition PT/OT prior to discharge (7) Severe protein-calorie malnutrition: Admission and Anticipated Discharge Date Admission Date: April 09, 2022 Subjective Patient is seen and examined at bedside No new complaints Denies any chest pain, dyspnea, dizziness, nausea, abdominal pain, dysuria Feels well 1/4 blood culture growing anaerobic gram-positive cocci Review of Systems Review of Systems: All systems reviewed & are unremarkable except as noted in Subjective Physical Exam Physical Exam: Physical Exam: Vitals signs as noted above General Appearance:Thin, frail, Elderly, no apparent distress Head: normocephalic, Atraumatic Eyes: normal inspection, EOMI Neck: supple, Trachea midline Respiratory/Chest: Normal breath sounds, CTA, No accessory muscle use Cardiovascular: S1, S2, No murmur Abdomen/GI:Soft, Non tender, Bowel sounds present Extremities/Musculoskeletal:normal inspection, LE edema R> L Neurologic/Psych:AAOX2, grossly no focal neurological deficits Skin: normal color, warm, Erythematous rash under breast Results & Data Results & Data ([facility]) Vital Signs (Past 12 Hours) Vital Signs Temp Pulse Resp BP Pulse Ox O2 Del Method 04/13/22 11:12 36.9 C 97 H 20 117/70 93 Room Air 04/13/22 07:12 36.9 C 82 15 120/74 94 Room Air Laboratory Results [facility] 04/13/22 06:36 Sodium 139 Potassium 3.7 Chloride 103 Carbon Dioxide 29 BUN 15 Creatinine 0.36 L Glucose 94 Calcium 9.2
[2022-04-13 18:51] LABS: Appearance Urine Clear (Clear); Bacteria Urine Automated Negative (Negative); Bilirubin Urine Negative (Negative); Blood Urine 1+ (Negative); Cast Urine Automated 0 /lpf (0-5); Color Urine Yellow; Epithelial Cell Urine Auto 0-5 /lpf (0-5); Glucose Urine UA Negative (Negative); Ketones Urine Negative (Negative); Leukocyte Esterase Urine Negative (Negative); Nitrite Urine Negative (Negative); Protein Urine Negative (Negative); Specific Gravity Urine 1.007 (1.000-1.030); Urobilinogen Urine Negative (Negative); pH Urine 6.5 (4.5-7.5)
[2022-04-13 19:21] LABS: Calcium Oxalate Crystals Urine Present (None Prsent)
[2022-04-13] MEDS: DOCUSATE SODIUM/SENNA 50/8.6MG TAB PO SCH (21:03)
[2022-04-13] MEDS: ACETAMINOPHEN 500 MG TAB PO PRN (21:53)
[2022-04-14] MEDS: PANTOprazole 40 MG TAB PO SCH (08:50)
[2022-04-14] MEDS: DOXYCYCLINE HYCLATE 100 MG CAP PO SCH ×2 (08:50→20:57)
[2022-04-14] MEDS: APIXABAN 5 MG TABLET PO SCH ×2 (08:50→20:58)
[2022-04-14] MEDS: TERBINAFINE CR 30 GM TUBE EXT SCH ×2 (08:50→20:59)
[2022-04-14 10:42] LABS: Basophils # (auto) 0.03 K/uL (0-0.2); Basophils % (auto) 0.4 %; Eosinophils # (auto) 0.01 K/uL (0-0.50); Eosinophils % (auto) 0.1 %; Hematocrit (blood only) 32.6 % (34.1-44.9); Hemoglobin 10.6 g/dl (12.0-16.0); Immature Granulocytes # (auto) 0.02 K/uL (0.00-0.02); Immature Granulocytes % (auto) 0.2 %; Lymphocytes # (auto) 1.12 K/uL (1.2-3.4); Mean Corpuscular Hemoglobin 31.2 pg (25.0-34.0); Mean Corpuscular Hgb Conc 32.5 g/dL (32.0-36.0); Mean Corpuscular Volume 95.9 fL (80.0-100.0); Mean Platelet Volume 10.1 fL (9.4-12.3); Monocytes # (auto) 0.68 K/uL (0.24-0.82); Monocytes % (auto) 8.5 %; Neutrophils # (auto) 6.16 K/uL (1.4-6.5); Neutrophils % (auto) 76.8 %; Platelet Count 307 K/uL (130-400); RDW Coefficient of Variation 14.2 % (11.5-14.5); RDW Standard Deviation 49.9 fL (36.4-46.3); White Blood Count 8.02 K/ul (4.8-10.8)
[2022-04-14 11:05] LABS: BUN Creatinine Ratio 43.8 (10-20); Calcium 9.4 mg/dl (8.5-10.1); Creatinine Clr Calc Pharmacy 65.1 ml/min; Est GFR (African American) 104.4 ml/min; Est GFR (Non-African American) 90.1 ml/min; Potassium 3.4 mmol/L (3.5-5.1)
[2022-04-14] MEDS ORDERED: POTASSIUM CHLORIDE 20 MEQ/15 ML UDC PO ONE (12:00)
--- NOTE | 2022-04-14 16:46 | Hospitalist Progress Note ---
Date of Service April 14, 2022 Assessment & Plan (1) Encephalopathy acute: Plan: Acute metabolic encephalopathy Initially though to have aseptic meningitis--Less likely Dehydration H/O Recent UTI--completed 10-day course of Keflex 2 days prior to admission No urine culture obtained as outpatient as per patient's daughter Lactic acidosis resolved with IV fluids Sacral Wound Stage 2 -POA -CT head:There is no hemorrhage, mass effect, or evidence of acute territorial ischemia by CT criteria. -S/P lumbar puncture--dry tap Continue wound care, doxycycline Afebrile, No leucocytosis Received IV fluids Mental status back to baseline Right lower extremity DVT --Venous Doppler: Right popliteal deep vein thrombosis. No DVT within the visualized left lower extremity. IV heparin discontinued Transition to Eliquis as per patient/family preference Continue Eliquis 10 mg twice a day for 1 week and then transition to 5 mg twice a day. Continue Eliquis per protocol Abnormal blood culture / blood culture growing anaerobic gram-positive cocci Repeat blood cultures: No growth to date Initial blood cultures still pending (2) Lactic acidosis: Plan: Resolved with IV fluids (3) Hypertension: Plan: -Resume amlodipine if needed Monitor BP BP stable (4) Hypokalemia: Plan: Replete electrolytes as needed Monitor (5) Ambulatory dysfunction: Plan: - Wheelchair bound with requiring a 2 person assist at home for the past 2 months, limited ambulation - PT/OT eval - Fall precautions (6) Peripheral edema: Plan: Management as above Tinea corporis Continue Terbinafine DVT Px: Eliquis CODE STATUS: DNR/DNI Disposition May need home health upon discharge (7) Severe protein-calorie malnutrition: Admission and Anticipated Discharge Date Admission Date: April 09, 2022 Subjective Patient is seen and examined at bedside Low-grade fever overnight Blood culture still pending Denies any chest pain, dyspnea, dizziness, nausea, abdominal pain, dysuria Offers no complaints Review of Systems Review of Systems: All systems reviewed & are unremarkable except as noted in Subjective Physical Exam Physical Exam: Physical Exam: Vitals signs as noted above General Appearance:Thin, frail, Elderly, no apparent distress Head: normocephalic, Atraumatic Eyes: normal inspection, EOMI Neck: supple, Trachea midline Respiratory/Chest: Normal breath sounds, CTA, No accessory muscle use Cardiovascular: S1, S2, No murmur Abdomen/GI:Soft, Non tender, Bowel sounds present Extremities/Musculoskeletal:normal inspection, LE edema R> L Neurologic/Psych:AAOX2, grossly no focal neurological deficits Skin: normal color, warm, Erythematous rash under breast Results & Data Results & Data ([facility]) Vital Signs (Past 12 Hours) Vital Signs Temp Pulse Resp BP Pulse Ox O2 Del Method 04/14/22 15:13 37.1 C 85 16 110/65 94 Room Air 04/14/22 07:39 37.6 C H 84 16 106/61 95 Room Air Laboratory Results Short CBC 04/14/22 Range/Units 10:00 WBC 8.02 (4.8-10.8) K/ul Hgb 10.6 L (12.0-16.0) g/dl Hct 32.6 L (34.1-44.9) % Plt Count 307 (130-400) K/uL [facility] 04/14/22 10:00 Sodium 140 Potassium 3.4 L Chloride 104 Carbon Dioxide 29 BUN 21 Creatinine 0.48 L Glucose 141 H Calcium 9.4 Urine 04/13/22 Range/Units 18:30 Urine Color Yellow Urine Appearance Clear (Clear) Urine pH 6.5 (4.5-7.5) Ur Specific [place] 1.007 (1.000-1.030) Urine Protein Negative (Negative) Urine Glucose (UA) Negative (Negative)
[2022-04-14] MEDS: ACETAMINOPHEN 500 MG TAB PO PRN (21:00)
[2022-04-14] MEDS: DOCUSATE SODIUM/SENNA 50/8.6MG TAB PO SCH (21:00)
[2022-04-15 07:29] LABS: BUN Creatinine Ratio 33.3 (10-20); Calcium 8.6 mg/dl (8.5-10.1); Creatinine Clr Calc Pharmacy 80.2 ml/min; Est GFR (African American) 111.8 ml/min; Est GFR (Non-African American) 96.4 ml/min; Potassium 3.9 mmol/L (3.5-5.1)
[2022-04-15] MEDS: PANTOprazole 40 MG TAB PO SCH (08:09)
[2022-04-15] MEDS: APIXABAN 5 MG TABLET PO SCH ×2 (08:10→21:04)
[2022-04-15] MEDS: DOXYCYCLINE HYCLATE 100 MG CAP PO SCH ×2 (08:10→21:04)
[2022-04-15] MEDS: TERBINAFINE CR 30 GM TUBE EXT SCH ×2 (08:10→21:06)
[2022-04-15] MEDS ORDERED: ALUMINUM/MAGNESIUM/SIMETH (MAALOX MAX) 30 ML UDC PO PRN (11:15)
[2022-04-15] MEDS ORDERED: FAMOTIDINE 10 MG TABLET PO ONE (11:15)
[2022-04-15] MEDS: ACETAMINOPHEN 500 MG TAB PO PRN ×2 (13:17→21:05)
--- NOTE | 2022-04-15 15:07 | Hospitalist Progress Note ---
Date of Service April 15, 2022 Assessment & Plan (1) Encephalopathy acute: Plan: Acute metabolic encephalopathy Initially though to have aseptic meningitis--Less likely Dehydration H/O Recent UTI--completed 10-day course of Keflex 2 days prior to admission No urine culture obtained as outpatient as per patient's daughter Lactic acidosis resolved with IV fluids Sacral Wound Stage 2 -POA -CT head:There is no hemorrhage, mass effect, or evidence of acute territorial ischemia by CT criteria. -S/P lumbar puncture--dry tap Continue wound care, doxycycline Afebrile, No leucocytosis Received IV fluids Mental status back to baseline Needs placement Right lower extremity DVT --Venous Doppler: Right popliteal deep vein thrombosis. No DVT within the visualized left lower extremity. IV heparin discontinued Transition to Eliquis as per patient/family preference Continue Eliquis 10 mg twice a day for 1 week and then transition to 5 mg twice a day. Continue Eliquis per protocol Plan to transition to Eliquis 5 mg twice daily on 04/18/2022 Abnormal blood culture --likely contaminant / blood culture growing anaerobic gram-positive cocci Repeat blood cultures: No growth to date (2) Lactic acidosis: Plan: Resolved with IV fluids (3) Hypertension: Plan: -Resume amlodipine if needed Monitor BP BP stable (4) Hypokalemia: Plan: Replete electrolytes as needed Monitor (5) Ambulatory dysfunction: Plan: - Wheelchair bound with requiring a 2 person assist at home for the past 2 months, limited ambulation - PT/OT eval - Fall precautions (6) Peripheral edema: Plan: Management as above Tinea corporis Continue Terbinafine DVT Px: Eliquis CODE STATUS: DNR/DNI Disposition Plan to discharge when placement available (7) Severe protein-calorie malnutrition: Admission and Anticipated Discharge Date Admission Date: April 09, 2022 Subjective Patient is seen and examined at bedside States having some indigestion after having food today Afebrile today Denies any chest pain, dyspnea, dizziness, nausea, abdominal pain, dysuria Needs placement Reports having some discomfort at sacral region Review of Systems Review of Systems: All systems reviewed & are unremarkable except as noted in Subjective Physical Exam Physical Exam: Physical Exam: Vitals signs as noted above General Appearance:Thin, frail, Elderly, no apparent distress Head: normocephalic, Atraumatic Eyes: normal inspection, EOMI Neck: supple, Trachea midline Respiratory/Chest: Normal breath sounds, CTA, No accessory muscle use Cardiovascular: S1, S2, No murmur Abdomen/GI:Soft, Non tender, Bowel sounds present Extremities/Musculoskeletal:normal inspection, LE edema R> L Neurologic/Psych:AAOX2, grossly no focal neurological deficits Skin: normal color, warm, Erythematous rash under breast Results & Data Results & Data ([facility]) Vital Signs (Past 12 Hours) Vital Signs Temp Pulse Resp BP Pulse Ox O2 Del Method 04/15/22 08:28 Room Air 04/15/22 07:33 36.6 C 75 16 104/57 L 96 Room Air Laboratory Results [facility] 04/15/22 06:49 Sodium 139 Potassium 3.9 Chloride 105 Carbon Dioxide 29 BUN 13 Creatinine 0.39 L Glucose 98 Calcium 8.6
[2022-04-15] MEDS: DOCUSATE SODIUM/SENNA 50/8.6MG TAB PO SCH (21:06)
[2022-04-16] MEDS: PANTOprazole 40 MG TAB PO SCH (08:49)
[2022-04-16] MEDS: TERBINAFINE CR 30 GM TUBE EXT SCH ×2 (08:49→20:17)
[2022-04-16] MEDS: APIXABAN 5 MG TABLET PO SCH ×2 (08:49→20:17)
[2022-04-16] MEDS: DOXYCYCLINE HYCLATE 100 MG CAP PO SCH ×2 (08:49→20:16)
--- NOTE | 2022-04-16 12:04 | Hospitalist Progress Note ---
Date of Service April 16, 2022 Assessment & Plan (1) Encephalopathy acute: Plan: Acute metabolic encephalopathy Initially though to have aseptic meningitis--Less likely Dehydration H/O Recent UTI--completed 10-day course of Keflex 2 days prior to admission No urine culture obtained as outpatient as per patient's daughter Lactic acidosis resolved with IV fluids Sacral Wound Stage 2 -POA CT head:There is no hemorrhage, mass effect, or evidence of acute territorial ischemia by CT criteria S/P lumbar puncture--dry tap Continue wound care, doxycycline Afebrile, no leucocytosis Received IV fluids Mental status back to baseline Awaiting placement Right lower extremity DVT --Venous Doppler: Right popliteal deep vein thrombosis. No DVT within the visualized left lower extremity. IV heparin discontinued Transition to Eliquis as per patient/family preference Continue Eliquis 10 mg twice a day for 1 week and then transition to 5 mg twice a day. Continue Eliquis per protocol Plan to transition to Eliquis 5 mg twice daily on 04/18/2022 Abnormal blood culture --likely contaminant 1/4 blood culture growing anaerobic gram-positive cocci Repeat blood cultures: No growth to date (2) Lactic acidosis: Plan: Resolved with IV fluids (3) Hypertension: Plan: -Resume amlodipine if needed Monitor BP BP stable (4) Hypokalemia: Plan: Replete electrolytes as needed Monitor (5) Ambulatory dysfunction: Plan: Wheelchair bound with requiring a 2 person assist at home for the past 2 months, limited ambulation PT/OT eval Fall precautions (6) Peripheral edema: Plan: Management as above Tinea corporis Continue Terbinafine DVT Px: Eliquis CODE STATUS: DNR/DNI Disposition Preference for [facility] upon discharge. (7) Severe protein-calorie malnutrition: Admission and Anticipated Discharge Date Admission Date: April 09, 2022 Supervising Physician Co-Signing Physician Notes Patient is seen and examined at bedside. States feeling cold and had some discomfort at sacral region this morning. Denies any chest pain, shortness breath, dizziness, nausea, abdominal pain. On exam patient is thin, frail, elderly, no distress, normocephalic atraumatic, EOMI, normal breath sounds, clear to auscultation, S1-S2, no murmur, no pedal edema, abdomen soft, nontender, normal bowel sounds, alert, awake, oriented, grossly no focal deficits. Continue management for right lower extremity DVT with Eliquis. Follow-up final blood cultures. Waiting for placement. I personally reviewed the record. Patient is interviewed and examined at bedside. Patient's care is coordinated with Olena Stafford PA-C. Please refer to the documentation above for details of patient's presentation and for discussion of other issues. Subjective Patient is seen and examined at bedside in 376-1. Feeling sleepy today but no changes overnight. No fever, chills, lightheaded, chest pain, SOB, N/V, abdominal pain or dysuria. Awaiting placement. Review of Systems Review of Systems: At least ten systems reviewed and negative except as noted in the HPI. Physical Exam Physical Exam: General Appearance: Thin, frail, elderly, no apparent distress Head: normocephalic, atraumatic Eyes: normal inspection, EOMI Neck: supple, trachea midline Respiratory/Chest: Normal breath sounds, CTA, no accessory muscle use Cardiovascular: S1, S2, No murmur Abdomen/GI:Soft, Non tender, Bowel sounds present Extremities/Musculoskeletal:normal inspection Neurologic/Psych:AAOX2, grossly no focal neurological deficits Skin: normal color, warm, Erythematous rash under breast Results & Data Results & Data ([facility]) Vital Signs (Past 12 Hours) Vital Signs Temp Pulse Resp BP Pulse Ox O2 Del Method 04/16/22 07:40 37.0 C 84 18 114/72 95 Room Air
[2022-04-16] MEDS: DOCUSATE SODIUM/SENNA 50/8.6MG TAB PO SCH (20:17)
[2022-04-17] MEDS: DOXYCYCLINE HYCLATE 100 MG CAP PO SCH ×2 (10:33→20:26)
[2022-04-17] MEDS: APIXABAN 5 MG TABLET PO SCH ×2 (10:33→20:26)
[2022-04-17] MEDS: TERBINAFINE CR 30 GM TUBE EXT SCH ×2 (10:34→20:26)
[2022-04-17] MEDS: PANTOprazole 40 MG TAB PO SCH (10:34)
[2022-04-17] MEDS: ACETAMINOPHEN 500 MG TAB PO PRN (10:37)
--- NOTE | 2022-04-17 12:54 | Hospitalist Progress Note ---
Date of Service April 17, 2022 Assessment & Plan (1) Encephalopathy acute: Plan: Acute metabolic encephalopathy Initially though to have aseptic meningitis--Less likely Dehydration H/O Recent UTI--completed 10-day course of Keflex 2 days prior to admission No urine culture obtained as outpatient as per patient's daughter Lactic acidosis resolved with IV fluids Sacral Wound Stage 2 -POA CT head:There is no hemorrhage, mass effect, or evidence of acute territorial ischemia by CT criteria S/P lumbar puncture--dry tap Continue wound care, doxycycline Afebrile, no leucocytosis Received IV fluids Mental status back to baseline Awaiting placement Right lower extremity DVT --Venous Doppler: Right popliteal deep vein thrombosis. No DVT within the visualized left lower extremity. IV heparin discontinued Transition to Eliquis as per patient/family preference Continue Eliquis 10 mg twice a day for 1 week and then transition to 5 mg twice a day. Continue Eliquis per protocol Plan to transition to Eliquis 5 mg twice daily on 04/18/2022 Abnormal blood culture --likely contaminant /4 blood culture growing anaerobic gram-positive cocci Repeat blood cultures: No growth to date (2) Lactic acidosis: Plan: Resolved with IV fluids (3) Hypertension: Plan: -Resume amlodipine if needed Monitor BP BP stable (4) Hypokalemia: Plan: Replete electrolytes as needed Monitor (5) Ambulatory dysfunction: Plan: Wheelchair bound with requiring a 2 person assist at home for the past 2 months, limited ambulation PT/OT eval Fall precautions (6) Peripheral edema: Plan: Management as above Tinea corporis Continue Terbinafine DVT Px: Eliquis CODE STATUS: DNR/DNI Disposition Preference for [place] [facility] upon discharge. (7) Severe protein-calorie malnutrition: Admission and Anticipated Discharge Date Admission Date: April 09, 2022 Supervising Physician Co-Signing Physician Notes Patient is seen and examined at bedside. States having some discomfort at sacral region. Denies any chest pain, shortness breath, dizziness, nausea, abdominal pain. On exam patient is thin, frail, elderly, no distress, nor mocephalic atraumatic, EOMI, normal breath sounds, clear to auscultation, S1-S2, no murmur, no pedal edema, abdomen soft, nontender, normal bowel sounds, alert, awake, oriented, grossly no focal deficits. Continue management for right lower extremity DVT with Eliquis. Decrease Eliquis dose from 10 to 5 mg twice a day tomorrow. Waiting for placement. I personally reviewed the record. Patient is i nterviewed and examined at bedside. Patient's care is coordinated with Olena Stafford PA-C. Please refer to the documentation above for details of patient's presentation and for discussion of other issues. Subjective Patient is seen and examined at bedside in 376-1. Feeling sleepy today but no changes overnight. Feels sore and repositioned. No fever, chills, lightheaded, chest pain, SOB, N/V, abdominal pain or dysuria. Awaiting placement. Review of Systems Review of Systems: At least ten systems reviewed and negative except as noted in the HPI. Physical Exam Physical Exam: General Appearance: Thin, frail, elderly, no apparent distress Head: normocephalic, atraumatic Eyes: normal inspection, EOMI Neck: supple, trachea midline Respiratory/Chest: Normal breath sounds, CTA, no accessory muscle use Cardiovascular: S1, S2, No murmur Abdomen/GI:Soft, Non tender, Bowel sounds present : Park catheter Extremities/Musculoskeletal:normal inspection Neurologic/Psych:AAOX2, grossly no focal neurological deficits Skin: normal color, warm, Erythematous rash under breast Results & Data Results & Data ([facility]) Vital Signs (Past 12 Hours) Vital Signs Temp Pulse Resp BP Pulse Ox O2 Del Method 04/17/22 07:23 36.7 C 80 14 107/65 94 Room Air
[2022-04-17] MEDS: DOCUSATE SODIUM/SENNA 50/8.6MG TAB PO SCH (20:26)
[2022-04-18 07:36] LABS: Hematocrit (blood only) 31.9 % (34.1-44.9); Hemoglobin 10.5 g/dl (12.0-16.0); Mean Corpuscular Hgb Conc 32.9 g/dL (32.0-36.0); Mean Corpuscular Volume 94.1 fL (80.0-100.0); Mean Platelet Volume 9.4 fL (9.4-12.3); Platelet Count 375 K/uL (130-400); RDW Coefficient of Variation 13.5 % (11.5-14.5); RDW Standard Deviation 46.6 fL (36.4-46.3); Red Blood Count 3.39 M/uL (3.93-5.22)
[2022-04-18 08:01] LABS: BUN Creatinine Ratio 38.9 (10-20); Creatinine Clr Calc Pharmacy 86.9 ml/min; Est GFR (African American) 114.8 ml/min; Potassium 3.6 mmol/L (3.5-5.1)
[2022-04-18] MEDS: DOXYCYCLINE HYCLATE 100 MG CAP PO SCH ×2 (09:29→21:15)
[2022-04-18] MEDS: APIXABAN 5 MG TABLET PO SCH ×2 (09:29→21:15)
[2022-04-18] MEDS: PANTOprazole 40 MG TAB PO SCH (09:29)
[2022-04-18] MEDS: TERBINAFINE CR 30 GM TUBE EXT SCH ×2 (09:30→21:15)
--- NOTE | 2022-04-18 13:37 | Hospitalist Progress Note ---
Date of Service April 18, 2022 Assessment & Plan (1) Encephalopathy acute: Plan: Acute metabolic encephalopathy Initially though to have aseptic meningitis--Less likely Dehydration H/O Recent UTI--completed 10-day course of Keflex 2 days prior to admission No urine culture obtained as outpatient as per patient's daughter Lactic acidosis resolved with IV fluids Sacral Wound Stage 2 -POA CT head:There is no hemorrhage, mass effect, or evidence of acute territorial ischemia by CT criteria S/P lumbar puncture--dry tap Continue wound care, doxycycline Afebrile, no leucocytosis Received IV fluids Mental status back to baseline Awaiting placement Right lower extremity DVT --Venous Doppler: Right popliteal deep vein thrombosis. No DVT within the visualized left lower extremity. IV heparin discontinued Transition to Eliquis as per patient/family preference Currently on eliquis 5mg bid Abnormal blood culture --likely contaminant 1/4 blood culture growing anaerobic gram-positive cocci Repeat blood cultures: No growth to date (2) Lactic acidosis: Plan: Resolved with IV fluids (3) Hypertension: Plan: -Resume amlodipine if needed Monitor BP BP stable (4) Hypokalemia: Plan: Replete electrolytes as needed Monitor (5) Ambulatory dysfunction: Plan: Wheelchair bound with requiring a 2 person assist at home for the past 2 months, limited ambulation PT/OT eval Fall precautions (6) Peripheral edema: Plan: Management as above Tinea corporis Continue Terbinafine DVT Px: Eliquis CODE STATUS: DNR/DNI Disposition Preference for [facility] upon discharge. (7) Severe protein-calorie malnutrition: Admission and Anticipated Discharge Date Admission Date: April 09, 2022 Subjective Patient seen and examined Reports some itchiness in rash under breast Denied any chest pain, cough, shortness of breath Reports occasional post nasal drip Denied nausea, vomiting, diarrhea Denied headache or dizziness Physical Exam Constitutional: + well hydrated and + thin; no acute distress Eyes: PERRL, conjunctivae normal, anicteric sclerae ENMT: external ear and nose normal, oropharynx normal Respiratory: normal respiratory effort, lungs clear to auscultation Cardiovascular: Rate/Rhythm: regular rate and regular rhythm S1 S2 Chest (Breasts): Additional Comments: Rash under breast improving Gastrointestinal (Abdomen): normal bowel sounds, soft, nontender, no hepatos plenomegaly Musculoskeletal: Trace pedal edema Neurologic: PERRL, EOMI, accommodation nl, no face palsy, no dysarthria Psychiatric: A+Ox3, euthymic affect Results & Data Results & Data ([facility]) Vital Signs (Past 12 Hours) Vital Signs Temp Pulse Resp BP Pulse Ox O2 Del Method 04/18/22 07:58 36.5 C 88 16 127/72 95 Room Air Laboratory Results Abnormal lab results 04/18/22 04/18/22 Range/Units 06:46 06:46 RBC 3.39 L (3.93-5.22) M/uL Hgb 10.5 L (12.0-16.0) g/dl Hct 31.9 L (34.1-44.9) % RDW Std Deviation 46.6 H (36.4-46.3) fL Creatinine 0.36 L (0.6-1.2) mg/dl BUN/Creatinine Ratio 38.9 H (10-20) Glucose 100 H (70-99(Fasting)) mg/dl
[2022-04-18] MEDS: ACETAMINOPHEN 500 MG TAB PO PRN (21:15)
[2022-04-18] MEDS: DOCUSATE SODIUM/SENNA 50/8.6MG TAB PO SCH (21:15)
[2022-04-18] MEDS: SODIUM CHLORIDE 0.65% NA SOLN 45 ML (OCEAN) PRN (21:16)
[2022-04-19] MEDS: DOXYCYCLINE HYCLATE 100 MG CAP PO SCH ×2 (09:23→20:53)
[2022-04-19] MEDS: PANTOprazole 40 MG TAB PO SCH (09:23)
[2022-04-19] MEDS: TERBINAFINE CR 30 GM TUBE EXT SCH ×2 (09:23→20:55)
[2022-04-19] MEDS: APIXABAN 5 MG TABLET PO SCH ×2 (09:23→20:54)
[2022-04-19] MEDS: ACETAMINOPHEN 500 MG TAB PO PRN (09:31)
--- NOTE | 2022-04-19 11:41 | Hospitalist Progress Note ---
Date of Service April 19, 2022 Assessment & Plan (1) Encephalopathy acute: Plan: Acute metabolic encephalopathy Initially though to have aseptic meningitis--Less likely Dehydration H/O Recent UTI--completed 10-day course of Keflex 2 days prior to admission No urine culture obtained as outpatient as per patient's daughter Lactic acidosis resolved with IV fluids Sacral Wound Stage 2 -POA CT head:There is no hemorrhage, mass effect, or evidence of acute territorial ischemia by CT criteria S/P lumbar puncture--dry tap Continue wound care, doxycycline Afebrile, no leucocytosis Received IV fluids Mental status back to baseline Awaiting placement Right lower extremity DVT --Venous Doppler: Right popliteal deep vein thrombosis. No DVT within the visualized left lower extremity. IV heparin discontinued Transition to Eliquis as per patient/family preference Currently on eliquis 5mg bid Abnormal blood culture --likely contaminant 1/4 blood culture growing anaerobic gram-positive cocci Repeat blood cultures: No growth to date (2) Lactic acidosis: Plan: Resolved with IV fluids (3) Hypertension: Plan: -Resume amlodipine if needed Monitor BP BP stable (4) Hypokalemia: Plan: Replete electrolytes as needed Monitor (5) Ambulatory dysfunction: Plan: Wheelchair bound with requiring a 2 person assist at home for the past 2 months, limited ambulation PT/OT eval Fall precautions (6) Peripheral edema: Plan: Management as above Tinea corporis Continue Terbinafine DVT Px: Eliquis CODE STATUS: DNR/DNI Disposition Preference for [facility] upon discharge. (7) Severe protein-calorie malnutrition: Admission and Anticipated Discharge Date Admission Date: April 09, 2022 Subjective Patient seen and examined Reports some occasional knee pain in both legs that resolves with tylenol Denied any chest pain, cough, shortness of breath Denied nausea, abd pain, vomiting, diarrhea Denied headache or dizziness Physical Exam Constitutional: + well hydrated and + thin; no acute distress Eyes: PERRL, conjunctivae normal, anicteric sclerae ENMT: external ear and nose normal, oropharynx normal Respiratory: normal respiratory effort, lungs clear to auscultation Cardiovascular: Rate/Rhythm: regular rate and regular rhythm S1 S2 Gastrointestinal (Abdomen): normal bowel sounds, soft, nontender, no hepatosplenomegaly Neurologic: PERRL, EOMI, accommodation nl, no face palsy, no dysarthria Psychiatric: A+Ox3, euthymic affect Results & Data Results & Data ([facility]) Vital Signs (Past 12 Hours) Vital Signs Temp Pulse Resp BP Pulse Ox O2 Del Method 04/19/22 09:23 36.7 C 77 16 113/70 97 Room Air
[2022-04-19] MEDS: DICLOFENAC SOD 1% GEL 100 GM TUBE EXT PRN (18:27)
[2022-04-19] MEDS: DOCUSATE SODIUM/SENNA 50/8.6MG TAB PO SCH (20:55)
[2022-04-19] MEDS ORDERED: ONDANSETRON INJ 2 MG/ML 2 ML VIAL IV STA (21:22)
[2022-04-20 07:25] LABS: BUN Creatinine Ratio 46.9 (10-20); Creatinine Clr Calc Pharmacy 97.7 ml/min; Est GFR (African American) 119.3 ml/min; Est GFR (Non-African American) 102.9 ml/min; Potassium 3.9 mmol/L (3.5-5.1)
[2022-04-20] MEDS: APIXABAN 5 MG TABLET PO SCH ×2 (08:28→19:51)
[2022-04-20] MEDS: DOXYCYCLINE HYCLATE 100 MG CAP PO SCH ×2 (08:28→19:52)
[2022-04-20] MEDS: PANTOprazole 40 MG TAB PO SCH (08:28)
[2022-04-20] MEDS: TERBINAFINE CR 30 GM TUBE EXT SCH ×2 (08:29→19:52)
[2022-04-20] MEDS: DICLOFENAC SOD 1% GEL 100 GM TUBE EXT PRN (09:32)
--- NOTE | 2022-04-20 12:02 | Hospitalist Progress Note ---
Date of Service April 20, 2022 Assessment & Plan (1) Encephalopathy acute: Plan: Acute metabolic encephalopathy Initially though to have aseptic meningitis--Less likely Dehydration H/O Recent UTI--completed 10-day course of Keflex 2 days prior to admission No urine culture obtained as outpatient as per patient's daughter Lactic acidosis resolved with IV fluids Sacral Wound Stage 2 -POA CT head:There is no hemorrhage, mass effect, or evidence of acute territorial ischemia by CT criteria S/P lumbar puncture--dry tap Continue wound care, doxycycline Afebrile, no leucocytosis Received IV fluids Mental status back to baseline Awaiting placement Right lower extremity DVT --Venous Doppler: Right popliteal deep vein thrombosis. No DVT within the visualized left lower extremity. IV heparin discontinued Transition to Eliquis as per patient/family preference Currently on eliquis 5mg bid Abnormal blood culture --likely contaminant 1/4 blood culture growing anaerobic gram-positive cocci Repeat blood cultures: No growth to date (2) Lactic acidosis: Plan: Resolved with IV fluids (3) Hypertension: Plan: -Resume amlodipine if needed Monitor BP BP stable (4) Hypokalemia: Plan: Replete electrolytes as needed Monitor (5) Ambulatory dysfunction: Plan: Wheelchair bound with requiring a 2 person assist at home for the past 2 months, limited ambulation PT/OT eval Fall precautions (6) Peripheral edema: Plan: Management as above Tinea corporis Continue Terbinafine DVT Px: Eliquis CODE STATUS: DNR/DNI Disposition Preference for [facility] upon discharge. (7) Severe protein-calorie malnutrition: Admission and Anticipated Discharge Date Admission Date: April 09, 2022 Subjective Patient seen and examined Reports some low back pain at site of ulcer Denied any chest pain, cough, shortness of breath Denied nausea, abd pain, vomiting, diarrhea Denied headache or dizziness Physical Exam Constitutional: + well hydrated and + thin; no acute distress Eyes: PERRL, conjunctivae normal, anicteric sclerae ENMT: external ear and nose normal, oropharynx normal Respiratory: normal respiratory effort, lungs clear to auscultation Cardiovascular: Rate/Rhythm: regular rate and regular rhythm S1 S2 Chest (Breasts): Additional Comments: Rash under breast resolving Gastrointestinal (Abdomen): normal bowel sounds, soft, nontender, no hepatosplenomegaly Musculoskeletal: Dressing over sacral wound Neurologic: PERRL, EOMI, accommodation nl, no face palsy, no dysarthria Psychiatric: A+Ox3, euthymic affect Results & Data Results & Data ([facility]) Vital Signs (Past 12 Hours) Vital Signs Temp Pulse Resp BP Pulse Ox O2 Del Method 04/20/22 07:35 37 C 78 16 104/60 98 Room Air Laboratory Results Abnormal lab results 04/20/22 Range/Units 06:31 Creatinine 0.32 L (0.6-1.2) mg/dl BUN/Creatinine Ratio 46.9 H (10-20)
[2022-04-20] MEDS: SODIUM CHLORIDE 0.65% NA SOLN 45 ML (OCEAN) PRN ×2 (13:25→19:51)
[2022-04-20] MEDS: DOCUSATE SODIUM/SENNA 50/8.6MG TAB PO SCH (19:51)
[2022-04-20] MEDS: ACETAMINOPHEN 500 MG TAB PO PRN (19:51)
[2022-04-21] MEDS: ACETAMINOPHEN 500 MG TAB PO PRN ×2 (08:15→19:22)
[2022-04-21] MEDS: DICLOFENAC SOD 1% GEL 100 GM TUBE EXT PRN ×2 (08:15→20:44)
[2022-04-21] MEDS: TERBINAFINE CR 30 GM TUBE EXT SCH ×2 (08:20→20:43)
[2022-04-21] MEDS: PANTOprazole 40 MG TAB PO SCH (08:20)
[2022-04-21] MEDS: APIXABAN 5 MG TABLET PO SCH ×2 (08:20→20:43)
--- NOTE | 2022-04-21 14:56 | Hospitalist Progress Note ---
Date of Service April 21, 2022 Assessment & Plan (1) Encephalopathy acute: Plan: Acute metabolic encephalopathy Initially though to have aseptic meningitis--Less likely Dehydration H/O Recent UTI--completed 10-day course of Keflex 2 days prior to admission No urine culture obtained as outpatient as per patient's daughter Lactic acidosis resolved with IV fluids Sacral Wound Stage 2 -POA CT head:There is no hemorrhage, mass effect, or evidence of acute territorial ischemia by CT criteria S/P lumbar puncture--dry tap Continue wound care Will complete doxycycline today Afebrile, no leucocytosis Received IV fluids Mental status back to baseline Awaiting placement Right lower extremity DVT --Venous Doppler: Right popliteal deep vein thrombosis. No DVT within the visualized left lower extremity. IV heparin discontinued Transitioned to Eliquis as per patient/family preference Currently on eliquis 5mg bid Abnormal blood culture --likely contaminant 1/4 blood culture growing anaerobic gram-positive cocci Repeat blood cultures: No growth to date (2) Lactic acidosis: Plan: Resolved with IV fluids (3) Hypertension: Plan: -Resume amlodipine if needed Monitor BP BP stable (4) Hypokalemia: Plan: Replete electrolytes as needed Monitor (5) Ambulatory dysfunction: Plan: Wheelchair bound with requiring a 2 person assist at home for the past 2 months, limited ambulation PT/OT eval Fall precautions (6) Peripheral edema: Plan: Management as above Tinea corporis Continue Terbinafine DVT Px: Eliquis CODE STATUS: DNR/DNI (7) Severe protein-calorie malnutrition: Admission and Anticipated Discharge Date Admission Date: April 09, 2022 Subjective Patient seen and examined Reports occasional low back pain Denied any chest pain, cough, shortness of breath Denied nausea, abd pain, vomiting, diarrhea Denied headache or dizziness Physical Exam Constitutional: + well hydrated and + thin; no acute distress Eyes: PERRL, conjunctivae normal, anicteric sclerae ENMT: external ear and nose normal, oropharynx normal Respiratory: normal respiratory effort, lungs clear to auscultation Cardiovascular: Rate/Rhythm: regular rate and regular rhythm Gastrointestinal (Abdomen): normal bowel sounds, soft, nontender, no hepatosplenomegaly Musculoskeletal: No pedal edema Sacral ulcer healing Neurologic: PERRL, EOMI, accommodation nl, no face palsy, no dysarthria Psychiatric: A+Ox3, euthymic affect Results & Data Results & Data ([facility]) Vital Signs (Past 12 Hours) Vital Signs Temp Pulse Resp BP Pulse Ox O2 Del Method 04/21/22 08:00 Room Air 04/21/22 07:33 36.9 C 78 16 118/67 96 Room Air
[2022-04-21] MEDS: SODIUM CHLORIDE 0.65% NA SOLN 45 ML (OCEAN) PRN (20:44)
[2022-04-21] MEDS: DOCUSATE SODIUM/SENNA 50/8.6MG TAB PO SCH (20:44)
[2022-04-22] MEDS: APIXABAN 5 MG TABLET PO SCH (09:34)
[2022-04-22] MEDS: TERBINAFINE CR 30 GM TUBE EXT SCH (09:35)
[2022-04-22] MEDS: PANTOprazole 40 MG TAB PO SCH (09:35)
[2022-04-22 10:14] LABS: Hematocrit (blood only) 33.5 % (34.1-44.9); Hemoglobin 10.7 g/dl (12.0-16.0); Mean Corpuscular Hemoglobin 30.7 pg (25.0-34.0); Mean Corpuscular Hgb Conc 31.9 g/dL (32.0-36.0); Mean Corpuscular Volume 96.3 fL (80.0-100.0); Mean Platelet Volume 9.1 fL (9.4-12.3); Platelet Count 447 K/uL (130-400); RDW Coefficient of Variation 13.6 % (11.5-14.5); RDW Standard Deviation 48.1 fL (36.4-46.3); Red Blood Count 3.48 M/uL (3.93-5.22); White Blood Count 6.85 K/ul (4.8-10.8)
[2022-04-22 10:50] LABS: Calcium 9.5 mg/dl (8.5-10.1); Creatinine Clr Calc Pharmacy 82.3 ml/min; Est GFR (African American) 112.7 ml/min; Est GFR (Non-African American) 97.3 ml/min; Potassium 3.6 mmol/L (3.5-5.1)
--- NOTE | 2022-04-22 12:36 | Hospitalist Progress Note ---
Date of Service April 22, 2022 Assessment & Plan (1) Encephalopathy acute: Plan: Acute metabolic encephalopathy Initially though to have aseptic meningitis--Less likely Dehydration H/O Recent UTI--completed 10-day course of Keflex 2 days prior to admission No urine culture obtained as outpatient as per patient's daughter Lactic acidosis resolved with IV fluids Sacral Wound Stage 2 -POA --CT head:There is no hemorrhage, mass effect, or evidence of acute territorial ischemia by CT criteria --S/P lumbar puncture--dry tap --Continue wound care Completed doxycycline course Received IV fluids Mental status back to baseline Plan to discharge to SNF today Right lower extremity DVT --Venous Doppler: Right popliteal deep vein thrombosis. No DVT within the visualized left lower extremity. IV heparin discontinued Transitioned to Eliquis as per patient/family preference Continue Eliquis 5mg bid Abnormal blood culture --likely contaminant 1/4 blood culture growing anaerobic gram-positive cocci Repeat blood cultures: No growth to date (2) Lactic acidosis: Plan: Resolved with IV fluids (3) Hypertension: Plan: -Was on amlodipine at home Monitor BP BP relatively low and stable off medications (4) Hypokalemia: Plan: Replete electrolytes as needed Monitor (5) Ambulatory dysfunction: Plan: Wheelchair bound with requiring a 2 person assist at home for the past 2 months, limited ambulation PT/OT eval Fall precautions (6) Peripheral edema: Plan: Management as above Tinea corporis Continue Terbinafine DVT Px: Eliquis CODE STATUS: DNR/DNI (7) Severe protein-calorie malnutrition: Admission and Anticipated Discharge Date Admission Date: April 09, 2022 Subjective Patient is seen and examined at bedside Denies any chest pain, shortness of breath, dizziness, nausea, abdominal pain Sacral wound pain is much improved Plan to be discharged to SNF today Review of Systems Review of Systems: All systems reviewed & are unremarkable except as noted in Subjective Physical Exam Physical Exam: Physical Exam: Vitals signs as noted above General Appearance:Thin, frail, Elderly, no apparent distress Head: normocephalic, Atraumatic Eyes: normal inspection, EOMI Neck: supple, Trachea midline Respiratory/Chest: Normal breath sounds, CTA, No accessory muscle use Cardiovascular: S1, S2, No murmur Abdomen/GI:Soft, Non tender, Bowel sounds present Extremities/Musculoskeletal:normal inspection, LE edema improved Neurologic/Psych:AAOX2, grossly no focal neurological deficits Skin: normal color, warm, Erythematous rash under breast improved Results & Data Results & Data ([facility]) Vital Signs (Past 12 Hours) Vital Signs Temp Pulse Resp BP Pulse Ox O2 Del Method 04/22/22 12:22 37.3 C 84 14 103/62 95 Room Air 04/22/22 09:27 Room Air 04/22/22 07:29 37.2 C 97 H 14 104/65 97 Room Air Laboratory Results Short CBC 04/22/22 Range/Units 09:49 WBC 6.85 (4.8-10.8) K/ul Hgb 10.7 L (12.0-16.0) g/dl Hct 33.5 L (34.1-44.9) % Plt Count 447 H (130-400) K/uL BMP 04/22/22 09:49 Sodium 139 Potassium 3.6 Chloride 103 Carbon Dioxide 27 BUN 19 Creatinine 0.38 L Glucose 121 H Calcium 9.5
--- NOTE | 2022-04-22 12:50 | Discharge Summary ---
Date of Service April 22, 2022 Admission HPI Per Admitting Provider This is a 89-year-old female with PMHx of HTN, tricuspid and mitral regurg, osteoporosis, history of left hip replacement, history of pressure ulcers, dementia who presents to the ER via EMS due to worsening altered mental status which was noticed by her daughter this morning around 8 AM. On 04/01 she was in to see her PCP for urinary complaints including dysuria and was started on an Keflex 500 mg x7 days which she completed yesterday. The patient awakens to verbal stimuli when i come in the room, however is lethargic and quickly falls back asleep, and is unable to provide any information. She makes a few moaning sounds. Pt does not follow commands but does move all her extremities slightly. The patient is unable to provide any history due to AMS. I contacted her daughter, Sharron Wilson, who reports she woke up last night screaming "get me out of here" and thought that she was in the basement, also seeing cats in the house which aren't really there. Hallucinations have been present for about 1 month and consistent. They admit that she has not been walking for at least 2 months. They also notice she is loosing strength. Sharron and her sister lift her and help to get her into wheelchair/ put her on the toilet with a 2 assist. They have not had PT/OT into the home and 2 weeks ago actually refused this at the PCP office during the last visit. She takes a tylenol for pain in her knees due to arthritis several times a day but does not seem to help. Sharron feels she has early onset dementia due to repeating herself often, the hallucinations, and concern over losing money but it actually is in her purse. She is typically knows her daughters, but does not know her own address at times. Daughter is unsure if she would be able to orient to time. Denies any recent falls or injuries. She was not aware, nor her sister, of the rash which I described that was on her chest/abdomen. Admission Exam Per Admitting Provider Physical Exam Physical Exam: General: lethargic, awakens to verbal stimuli but falls asleep easily, nonverbal currently, does not follow commands, ill appearing, + cachectic appearing, BMI 19 Head: Normocephalic, atraumatic ENT: PERRL, EOMI, no pharyngeal exudate, mucous membranes dry with some yellow staining around her mouth, + upper denture plate Chest: Clear to auscultation with faint crackles at bases bilaterally, on room air, no wheeze or rales Cardiac: Regular rate and rhythm, +soft systolic murmur, no JVD, normal peripheral pulses, good capillary refill Skin: erythematous rash overlying the left chest at the nipple line extending down to the umbilicus, does not cross the midline and extends laterally but does not wrap around rib cage. Abdominal: NABS x 4 quadrants, soft, nondistended, nontender to palpation, no rebound or guarding Extremities: 2+ peripheral pitting edema with areas of blisters due to fluid accumulation, no erythema, + onychomycosis of the toenails, calfs nontender to palpation Psych: Unable to assess due to AMS Neuro: Awakens to verbal stimuli, nonverbal but does moan at times like she is attempting to talk, does not follow commands, moves all extremities but not on command, strength unable to be assessed Principal Diagnosis Acute metabolic encephalopathy Right lower extremity DVT Sacral Wound Hypokalemia Ambulatory dysfunction Tinea corporis Discharge Data Allergies Allergy/AdvReac Type Severity Reaction Status Date / Time No Known Allergies Allergy Verified 03/08/20 19:10 Consultations 04/09/22 10:50 ED Decision to Admit Stat Procedures Performed Laboratory Results WBC 6.85 K/ul (4.8-10.8) 04/22/22 09:49 RBC 3.48 M/uL (3.93-5.22) L 04/22/22 09:49 Hgb 10.7 g/dl (12.0-16.0) L 04/22/22 09:49 Hct 33.5 % (34.1-44.9) L 04/22/22 09:49 MCV 96.3 fL (80.0-100.0) 04/22/22 09:49 MCH 30.7 pg (25.0-34.0) 04/22/22 09:49 MCHC 31.9 g/dL (32.0-36.0) L 04/22/22 09:49 RDW Std Deviation 48.1 fL (36.4-46.3) H 04/22/22 09:49 RDW Coeff of Dana 13.6 % (11.5-14.5) 04/22/22 09:49 Plt Count 447 K/uL (130-400) H 04/22/22 09:49 MPV 9.1 fL (9.4-12.3) L 04/22/22 09:49 Immature Gran % (Auto) 0.2 % 04/14/22 10:00 Neut % (Auto) 76.8 % 04/14/22 10:00 Lymph % (Auto) 14.0 % 04/14/22 10:00 Rogers % (Auto) 8.5 % 04/14/22 10:00 Eos % (Auto) 0.1 % 04/14/22 10:00 Baso % (Auto) 0.4 % 04/14/22 10:00 Neut # (Auto) 6.16 K/uL (1.4-6.5) 04/14/22 10:00 Lymph # (Auto) 1.12 K/uL (1.2-3.4) L 04/14/22 10:00 Rogers # (Auto) 0.68 K/uL (0.24-0.82) 04/14/22 10:00 Eos # (Auto) 0.01 K/uL (0-0.50) 04/14/22 10:00 Baso # (Auto) 0.03 K/uL (0-0.2) 04/14/22 10:00 Immature Gran # (Auto) 0.02 K/uL (0.00-0.02) 04/14/22 10:00 Echinocytes 1+ 04/09/22 09:20 APTT 47.4 Seconds (21.0-31.0) H* 04/11/22 06:42 PTT Ratio 1.7 04/11/22 06:42 VBG pH 7.37 (7.36-7.41) 04/09/22 14:46 Sodium 139 mmol/L (136-145) 04/22/22 09:49 Potassium 3.6 mmol/L (3.5-5.1) 04/22/22 09:49 Chloride 103 mmol/L (98-107) 04/22/22 09:49 Carbon Dioxide 27 mmol/L (21-32) 04/22/22 09:49 Anion Gap 9 (3-11) 04/22/22 09:49 BUN 19 mg/dl (6-23) 04/22/22 09:49 Creatinine 0.38 mg/dl (0.6-1.2) L 04/22/22 09:49 Est Cr Clr Drug Dosing 82.3 ml/min 04/22/22 09:49 Est GFR ( Amer) 112.7 ml/min 04/22/22 09:49 Est GFR (Non-Af Amer) 97.3 ml/min 04/22/22 09:49 BUN/Creatinine Ratio 50.0 (10-20) H 04/22/22 09:49 Glucose 121 mg/dl (70-99(Fasting)) H 04/22/22 09:49 Estimat Average Glucose 105 mg/dl 04/10/22 06:42 Hemoglobin A1c 5.3 % (4.5-5.6) 04/10/22 06:42 Lactate 1.7 mmol/L (0.4-2.0) 04/09/22 11:05 Calcium 9.5 mg/dl (8.5-10.1) 04/22/22 09:49 Magnesium 1.9 mg/dl (1.7-2.4) 04/12/22 05:21 Total Bilirubin 0.7 mg/dl (0.2-1.0) 04/09/22 09:20 AST 20 U/L (13-39) 04/09/22 09:20 ALT 18 U/L (7-52) 04/09/22 09:20 Alkaline Phosphatase 83 U/L (34-104) 04/09/22 09:20 Ammonia 19.0 umol/L (18-72) 04/09/22 09:44 Troponin I High Sens 5.8 pg/ml (0-14) 04/09/22 09:20 Total Protein 6.5 gm/dl (6.0-8.3) 04/09/22 09:20 Albumin 4.1 gm/dl (3.4-5.0) 04/09/22 09:20 Globulin 2.4 gm/dl (2.5-4.0) L 04/09/22 09:20 Albumin/Globulin Ratio 1.7 (0.9-2) 04/09/22 09:20 Triglycerides 100 mg/dl (0-150) 04/10/22 06:42 Cholesterol 137 mg/dl (0-200) 04/10/22 06:42 LDL Cholesterol, Calc 65 mg/dl 04/10/22 06:42 VLDL Cholesterol, Calc 20 mg/dl (0-30) 04/10/22 06:42 HDL Cholesterol 52 mg/dl 04/10/22 06:42 Cholesterol/HDL Ratio 2.6 (0-5) 04/10/22 06:42 TSH 1.671 uIu/ml (0.300-4.500) 04/09/22 09:20 Urine Color Yellow 04/13/22 18:30 Urine Appearance Clear (Clear) 04/13/22 18:30 Urine pH 6.5 (4.5-7.5) 04/13/22 18:30 Ur Specific Dunnigan 1.007 (1.000-1.030) 04/13/22 18:30 Urine Protein Negative (Negative) 04/13/22 18:30 Urine Glucose (UA) Negative (Negative) 04/13/22 18:30 Urine Ketones Negative (Negative) 04/13/22 18:30 Urine Blood 1+ (Negative) H 04/13/22 18:30 Urine Nitrite Negative (Negative) 04/13/22 18:30 Urine Bilirubin Negative (Negative) 04/13/22 18:30 Urine Urobilinogen Negative (Negative) 04/13/22 18:30 Ur Leukocyte Esterase Negative (Negative) 04/13/22 18:30 Urine WBC (Auto) 1-5 /hpf (0-5) 04/13/22 18:30 Urine RBC (Auto) 10-30 /hpf (0-4) H 04/13/22 18:30 U Hyaline Cast (Auto) 0 /lpf (0-5) 04/13/22 18:30 U Epithel Cells (Auto) 0-5 /lpf (0-5) 04/13/22 18:30 Urine Bacteria (Auto) Negative (Negative) 04/13/22 18:30 Urine Crystals Not Reportable 04/13/22 18:30 Calcium Oxalate Crystal Present (None Prsent) A 04/13/22 18:30 Urine Opiates Screen Neg (Neg) 04/09/22 Unknown Ur Methadone, Qual Neg (Neg) 04/09/22 Unknown Urine Barbiturates Neg (Neg) 04/09/22 Unknown Ur Phencyclidine (PCP) Neg (Neg) 04/09/22 Unknown U Amphetamin/Meth Scrn Neg (Neg) 04/09/22 Unknown MDMA (Ecstasy) Screen Neg (Neg) 04/09/22 Unknown U Benzodiazepines Scrn Neg (Neg) 04/09/22 Unknown Ur Cocaine Metabolite Neg (Neg) 04/09/22 Unknown U Marijuana (THC) Screen Neg (Neg) 04/09/22 Unknown SARS-CoV-2 (PCR) NEGATIVE (Negative) 04/09/22 09:22 Influenza Type A (PCR) Negative (Neg) 04/09/22 09:22 Influenza Type B (PCR) Negative (Neg) 04/09/22 09:22 RSV (RT-PCR) Negative (Neg) 04/09/22 09:22 SARS-CoV-2, RNA, NAAT NEGATIVE (NEGATIVE) 04/22/22 12:07 Bld Cult ID Panel PCR PCR Panel Negative (NotDetected) 04/09/22 09:20 Impressions Chest X-Ray 04/09/22 09:11 SINGLE VIEW CHEST CLINICAL HISTORY: Generalized weakness. FINDINGS: An AP, portable, upright chest radiograph is compared to study dated 03/08/2020. The examination is degraded by portable technique and patient rotation. The heart is enlarged noting atherosclerotic calcification of the thoracic aorta. The pulmonary vasculature is noncongested. Enlargement of the pulmonary arteries is unchanged and suggests pulmonary artery hypertension. Chronic residual thickening is similar to previous. There is bibasilar scarring/atelectasis. The lungs and pleural spaces are clear. No pneumothorax is seen. The skeletal structures are osteopenic. The bony thorax is grossly intact. Arthritic change is noted in the shoulders and spine. Cholecystectomy clips are seen in the right upper quadrant. IMPRESSION: Mild cardiomegaly with no acute cardiopulmonary abnormality identified. ACT 112: Negative or not required by law. Electronically signed by: Kendall Nassar M.D. 04/09/2022 9:[address] 04/09/22 09:11 CT SCAN OF THE BRAIN WITHOUT IV CONTRAST CLINICAL HISTORY: Change in mental status. COMPARISON STUDY: No priors. TECHNIQUE: Unenhanced axial CT scan of the brain is performed from the vertex to the skull base. A dose lowering technique was utilized adhering to the principles of ALARA. CT DOSE: 729.78 mGycm FINDINGS: Brain parenchyma: There is age-related involutional change noting mild subcortical and periventricular microangiopathic disease. There is no hemorrhage, mass effect, or evidence of acute territorial ischemia by CT criteria. Bell-white matter differentiation is preserved. No extra-axial fluid collection is seen. Ventricles, sulci, cisterns: Prominent secondary to involutional change. Intracranial vasculature: There is atherosclerotic calcification of the cavernous carotid arteries. Calvarium: Unremarkable. Sinuses and mastoids: A 5 mm osteoma is noted in the right frontal sinus. The paranasal sinuses are otherwise clear. The mastoid air cells are well pneumatized. Orbits: The bony orbits are grossly intact. IMPRESSION: There is no hemorrhage, mass effect, or evidence of acute territorial ischemia by CT criteria. ACT 112: Negative or not required by law. Electronically signed by: Kendall Nassar M.D. 04/09/2022 10:12 AM Lumbar Puncture Fluoroscopy 04/09/22 12:00 FLUOROSCOPICALLY GUIDED LUMBAR PUNCTURE CLINICAL HISTORY: Altered mental status, shingles rash FLUOROSCOPY TIME: 0.5 minutes. A single fluoroscopic spot image of the lumbar spine. PROCEDURE: The procedure, risks and benefits were discussed with the patient's daughter including the risk of spinal headache, bleeding and infection. The patient's daughter agreed to the procedure and informed consent was obtained via telephone. The procedure was performed by Dr. Soria following a timeout. The right L5-S1 and L4-L5 interlaminar spaces were targeted. Skin overlying the space was prepped and draped in the usual sterile fashion and local anesthesia was achieved with 1% lidocaine. Under intermittent fluoroscopic guidance, a 20- gauge x 3 1/2 in. Sprotte needle was inserted into into the L5-S1 and L4-L5 levels. The needle entered the thecal sac at the L5-S1 level. However, cerebral spinal fluid was unable to be obtained. Therefore, this is consistent with a dry tap. The patient tolerated the procedure well. There were no immediate complications. IMPRESSION: Fluoroscopic guided lumbar puncture attempted. The needle was able to access the thecal sac at the L5-S1 level. However, cerebral spinal fluid was unable to be obtained. Therefore, this is consistent with a dry tap. No immediate complications. ACT 112: Negative or not required by law. Electronically signed by: Eloy Soria M.D. 04/09/2022 3:16 PM Venous Doppler Study 04/09/22 12:21 BILATERAL LOWER EXTREMITY VENOUS DOPPLER HISTORY: Edema, eval for DVT COMPARISON STUDY: None. FINDINGS: The bilateral common femoral and superficial femoral veins appear patent. There is occlusive thrombus within the right popliteal vein. The bilateral anterior tibial veins are patent. The bilateral posterior tibial and peroneal veins are identified likely due to the subcutaneous edema and patient positioning. The left popliteal vein is patent. IMPRESSION: 1. Right popliteal deep vein thrombosis. 2. No DVT within the visualized left lower extremity. ACT 112: Negative or not required by law. Electronically signed by: Eloy Soria M.D. 04/09/2022 1:53 PM Ordered Studies 04/09/22 09:11 CT head/brain wo con Stat 04/09/22 12:00 FL lumbar puncture diagnostic Routine 04/09/22 12:21 US venous doppler LE Routine Hospital Course (1) Encephalopathy acute: Acute metabolic encephalopathy Initially though to have aseptic meningitis--Less likely Dehydration H/O Recent UTI--completed 10-day course of Keflex 2 days prior to admission No urine culture obtained as outpatient as per patient's daughter Lactic acidosis resolved with IV fluids Sacral Wound Stage 2 -POA --CT head:There is no hemorrhage, mass effect, or evidence of acute territorial ischemia by CT criteria --S/P lumbar puncture--dry tap --Continue wound care Completed doxycycline course Received IV fluids Mental status back to baseline Plan to discharge to SNF today Right lower extremity DVT --Venous Doppler: Right popliteal deep vein thrombosis. No DVT within the visualized left lower extremity. IV heparin discontinued Transitioned to Eliquis as per patient/family preference Continue Eliquis 5mg bid Abnormal blood culture --likely contaminant 1/4 blood culture growing anaerobic gram-positive cocci Repeat blood cultures: No growth to date (2) Lactic acidosis: Resolved with IV fluids (3) Hypertension: -Was on amlodipine at home Monitor BP BP relatively low and stable off medications (4) Hypokalemia: Replete electrolytes as needed Monitor (5) Ambulatory dysfunction: Wheelchair bound with requiring a 2 person assist at home for the past 2 months, limited ambulation PT/OT eval Fall precautions (6) Peripheral edema: Management as above Tinea corporis Continue Terbinafine DVT Px: Eliquis CODE STATUS: DNR/DNI (7) Severe protein-calorie malnutrition: Total Time Total Time Spent Total Time Spent (In Minutes): 48 minutes Discharge Plan Discharge Items Patient Disposition: Transfer [facility] Reason For Visit: ENCEPHALOPATHY Discharge Diagnosis: Acute metabolic encephalopathy Right lower extremity DVT Sacral Wound Hypokalemia Ambulatory dysfunction Tinea corporis Condition on Discharge: Fair Activity: Per Instructions section Exercise/Sports: Gradually increase as tolerated Non-emergency contact: Primary Care Provider Call non-emergency contact if: you have any medication questions, your symptoms worsen, your pain is concerning for you and you have a fever Follow-up/Referrals: Linda Gonzalez, [Primary Care Provider] - ( ) Diet: Regular Diet Texture: Pureed (blended smooth) Addtl Attending Provider Instructions: Follow-up with your primary care physician in 1 week ---Continue Terbinafine for Tinea infection for 5 more days and stop. (for Rash under breasts) -- Continue wound care of your sacral region as advised Seek immediate medical attention if your symptoms reoccur or worsen Please take all medications as instructed on discharge list below. Please call if you have any questions or problems. You can reach a [facility] hospitalist on duty at [facility] 24 hours a day by calling [phone] Pending Studies at Discharge: No Stand-Alone Forms: [facility] Skilled Items Patient informed of condition?: Yes DNR: Yes Discharge Level of Care: Skilled Communicable Disease: No Discharge Prognosis: Stable Lines: None Urinary Catheter: No Medications and DC Order Prescriptions: New terbinafine HCl 1 % Cream 1 applic EXT BID 5 Days Qty: 15 0RF Eliquis 5 mg Tablet 5 mg PO BID Qty: 30 1RF Continued cholecalciferol (vitamin D3) [Vitamin D3] 1,000 unit Capsule 1,000 unit PO QAM omeprazole 20 mg Tablet,Delayed Release (Dr/Ec) 20 mg PO DAILY PRN (Reason: Dyspepsia) sennosides-docusate sodium [Senna with Docusate Sodium] 8.6-50 mg tablet 1 tab-cap PO HS Qty: 60 0RF docusate sodium [Colace] 100 mg Capsule 100 mg PO BID PRN (Reason: Constipation) 10 Days Qty: 0 0RF Changed acetaminophen [Tylenol Extra Strength] 500 mg tablet 500 mg PO Q8H PRN (Reason: Pain) Qty: 60 0RF Rx Instructions: Q4WA x 5 days then PRN Discontinued amlodipine 10 mg tablet 10 mg PO QAM Discharge Orders: Discharge Order (Routine); Ordered 04/22/22 Ordered By: Sesar Mckee Admission Data Admit Date/Time: 04/09/22 11:22 Attending Provider: Sesar Mckee Admit Provider: Ciarra Crook Primary Care Provider: Linda Gonzalez Other Providers: Ciarra Crook ; [place], [place] ; Olena Stafford ; Sesar Mckee
[2022-04-22] MEDS: ACETAMINOPHEN 500 MG TAB PO PRN (13:33)
== END 2022-04-22 15:10 | DRG 640 ==
LOC: ED 09:03 → 2S 11:22 → SUATTDRO 11:22 → 2S 15:43 → 3N 04-13 23:26